=== PATIENT | male | born 1930 | race Caucasian/White ===

== ENCOUNTER 2017-04-17 19:42 | Emergency (ER) | payer MEDICARE, OTHER ==
[2017-04-17 19:47] VITALS: TEMP 98.8
[2017-04-17] MEDS ORDERED: SODIUM CHLORIDE 0.9% 1,000 ML IV STA ×2 (20:05)
[2017-04-17 20:15] LABS: Basophils # (A) 0.1 k/uL (0-0.2); Basophils % (A) 1 %; CH 33.2; Eosinophils # (A) 0.2 k/uL (0-0.7); Eosinophils % (A) 2 %; HCT 41.3 % (39.0-53.0); HDW 1.92; HGB 13.8 gm/dL (13.0-17.5); Luc # (Auto) 0.21; Luc % (Auto) 2; Lymphocytes # (A) 2.1 k/uL (1.0-4.8); Lymphocytes % (A) 21 %; MCH 33.6 pg (25.0-35.0); MCHC 33.3 g/dL (31.0-37.0); MCV 100.9 fL (80.0-100.0); Mean Platelet Volume 7.3; Monocytes # (A) 0.7 k/uL (0-1.0); Monocytes % (A) 7 %; Neutrophils # (A) 6.8 k/uL (1.3-7.7); Neutrophils % (A) 67 %; RDW 13.1 % (11.5-15.5); WBC (Perox) 9.96
[2017-04-17 20:23] LABS: INR 1.2 (<1.2); Partial Thromboplastin Time 25.5 sec (22.0-30.0); Prothrombin Time 11.9 sec (9.0-12.0)
[2017-04-17 20:24] LABS: ALT 26 U/L (21-72); AST 27 U/L (17-59); Alkaline Phosphatase 84 U/L (38-126); Anion Gap 13 mmol/L; Blood Urea Nitrogen 19 mg/dL (9-20); Calcium 9.8 mg/dL (8.4-10.2); Carbon Dioxide 20 mmol/L (22-30); Chloride 98 mmol/L (98-107); Glucose 124 mg/dL (74-99); Magnesium 1.7 mg/dL (1.6-2.3); Non-African American GFR(MDRD) 53 (>60 ml/min/1.73 sqM); Potassium 4.7 mmol/L (3.5-5.1); Sodium 131 mmol/L (137-145); Total Bilirubin 1.2 mg/dL (0.2-1.3)
--- NOTE | 2017-04-17 20:27 | ED ---
General Adult HPI - General Chief complaint: Dizziness Stated complaint: Dizziness Time Seen by Provider: 04/17/17 19:46 Source: patient, family, EMS, RN notes reviewed, old records reviewed Mode of arrival: EMS Limitations: no limitations - History of Present Illness Initial comments: This is an 86-year-old male to the ER for evasive dizziness weakness lightheadedness. Right hand numbness. Patient recently treated discharged from hospital with GI bleed, history of low hemoglobin. Patient stopped taking antibiotics today for colitis. Patient has been feeling that he had a fever on and off for about the past week with chest fever and chills and shaking occasionally. No modifying factors. No pain. No shortness of breath. No abdominal pain. Patient states he doesn't felt a little bit weak today lightheaded and dizzy as he was consented down for dinner. Symptoms at this time are improved. No headache. - Related Data Home Medications Medication Instructions Recorded Confirmed Ascorbic Acid [Vitamin C] 500 mg PO DAILY 04/18/14 04/17/17 Aspirin EC [Ecotrin] 81 mg PO Q48H 04/18/14 04/17/17 Cetirizine HCl [Zyrtec] 10 mg PO DAILY 04/18/14 04/17/17 Cholecalciferol [Vitamin D3] 1,000 unit PO DAILY 04/18/14 04/17/17 Cyanocobalamin [Vitamin B-12] 1,000 mcg PO DAILY 04/18/14 04/17/17 Esomeprazole Magnesium [NexIUM] 40 mg PO DAILY 04/18/14 04/17/17 Mometasone Furoate [Nasonex] 1 spray NS DAILY PRN 04/18/14 04/17/17 Simvastatin [Zocor] 10 mg PO HS 04/18/14 04/17/17 Zinc 50 mg PO DAILY 04/18/14 04/17/17 Vitamin A 8,000 unit PO DAILY 04/17/17 04/17/17 Allergies Allergy/AdvReac Type Severity Reaction Status Date / Time latex Allergy Rash/Hives Verified 04/17/17 19:48 nickel [Nickel] Allergy Rash/Hives Verified 04/17/17 19:48 Penicillins Allergy Rash/Hives Verified 04/17/17 19:48 Review of Systems ROS Statement: Those systems with pertinent positive or pertinent negative responses have been documented in the HPI. ROS Other: All systems not noted in ROS Statement are negative. Past Medical History Past Medical History: Hyperlipidemia, Prostate Disorder History of Any Multi-Drug Resistant Organisms: None Reported Additional Past Surgical History / Comment(s): COLONOSCOPY; POLYP REMOVAL - 2 WEEKS AGO; HEMMORHOID REMOVAL Past Psychological History: No Psychological Hx Reported Smoking Status: Former smoker Past Alcohol Use History: Daily Past Drug Use History: None Reported General Exam Limitations: no limitations General appearance: alert, in no apparent distress Head exam: Present: atraumatic, normocephalic, normal inspection Eye exam: Present: normal appearance, PERRL, EOMI. Absent: scleral icterus, conjunctival injection, periorbital swelling ENT exam: Present: normal exam, mucous membranes moist Neck exam: Present: normal inspection. Absent: tenderness, meningismus, lymphadenopathy Respiratory exam: Present: normal lung sounds bilaterally. Absent: respiratory distress, wheezes, rales, rhonchi, stridor Cardiovascular Exam: Present: regular rate, normal rhythm, normal heart sounds. Absent: systolic murmur, diastolic murmur, rubs, gallop, clicks GI/Abdominal exam: Present: soft, normal bowel sounds. Absent: distended, tenderness, guarding, rebound, rigid Extremities exam: Present: normal inspection, full ROM, normal capillary refill. Absent: tenderness, pedal edema, joint swelling, calf tenderness Back exam: Present: normal inspection Neurological exam: Present: alert, oriented X3, CN II-XII intact Psychiatric exam: Present: normal affect, normal mood Skin exam: Present: warm, dry, intact, normal color. Absent: rash Course Vital Signs 04/17/17 04/17/17 04/17/17 19:44 19:59 20:47 Temperature 98.8 F Pulse Rate 80 82 77 Respiratory 18 16 18 Rate Blood Pressure 135/106 183/94 194/83 O2 Sat by Pulse 95 97 Oximetry 04/17/17 22:11 Temperature Pulse Rate 72 Respiratory 18 Rate Blood Pressure 164/73 O2 Sat by Pulse 97 Oximetry - Reevaluation(s) Reevaluation #1: 04/17/17 22:21 Patient has had prior ER visits for blood pressure control similar to this issue now with similar symptoms of the symptoms patient is experiencing at this point. Reevaluation #2: 04/17/17 22:21 Patient has adequate blood pressure control this time EKG Findings - EKG Comments: EKG Findings:: EKG shows sinus rhythm rate of 80, pO2 56, QRS 90, QTc 447 Medical Decision Making - Medical Decision Making 78 male the ER for evaluation of dizziness, elevated blood pressure. Patient states he does not feel well. Patient did have similar episode 3 years ago follow here high blood pressure. Patient is doctors with a blood pressure medication and found to have high blood pressure here today in the ER. Otherwise patient feels normal, is improved with blood pressure control can be discharged - Lab Data Result diagrams: 04/17/17 19:50 04/17/17 19:50 Lab Results 04/17/17 04/17/17 04/17/17 Range/Units 19:50 19:50 19:50 WBC 10.0 (3.8-10.6) k/uL RBC 4.10 L (4.30-5.90) m/uL Hgb 13.8 (13.0-17.5) gm/dL Hct 41.3 (39.0-53.0) % MCV 100.9 H (80.0-100.0) fL MCH 33.6 (25.0-35.0) pg MCHC 33.3 (31.0-37.0) g/dL RDW 13.1 (11.5-15.5) % Plt Count 297 (150-450) k/uL Neutrophils % 67 % Lymphocytes % 21 % Monocytes % 7 % Eosinophils % 2 % Basophils % 1 % Neutrophils # 6.8 (1.3-7.7) k/uL Lymphocytes # 2.1 (1.0-4.8) k/uL Monocytes # 0.7 (0-1.0) k/uL Eosinophils # 0.2 (0-0.7) k/uL Basophils # 0.1 (0-0.2) k/uL PT (9.0-12.0) sec INR (<1.2) APTT (22.0-30.0) sec Sodium 131 L (137-145) mmol/L Potassium 4.7 (3.5-5.1) mmol/L Chloride 98 (98-107) mmol/L Carbon Dioxide 20 L (22-30) mmol/L Anion Gap 13 mmol/L BUN 19 (9-20) mg/dL Creatinine 1.28 H (0.66-1.25) mg/dL Est GFR (MDRD) Af Amer >60 (>60 ml/min/1.73 sqM) Est GFR (MDRD) Non-Af 53 (>60 ml/min/1.73 sqM) Glucose 124 H (74-99) mg/dL Plasma Lactic Acid Frantz (0.7-2.0) mmol/L Calcium 9.8 (8.4-10.2) mg/dL Phosphorus 4.0 (2.5-4.5) mg/dL Magnesium 1.7 (1.6-2.3) mg/dL Total Bilirubin 1.2 (0.2-1.3) mg/dL AST 27 (17-59) U/L ALT 26 (21-72) U/L Alkaline Phosphatase 84 (38-126) U/L Total Creatine Kinase 120 (55-170) U/L CK-MB (CK-2) 1.8 (0.0-2.4) ng/mL CK-MB (CK-2) Rel Index 1.5 Troponin I <0.012 (0.000-0.034) ng/mL Total Protein 8.0 (6.3-8.2) g/dL Albumin 4.4 (3.5-5.0) g/dL Urine Color Urine Appearance (Clear) Urine pH (5.0-8.0) Ur Specific [place] (1.001-1.035) Urine Protein (Negative) Urine Glucose (UA) (Negative) Urine Ketones (Negative) Urine Blood (Negative) Urine Nitrite (Negative) Urine Bilirubin (Negative) Urine Urobilinogen (<2.0) mg/dL Ur Leukocyte Esterase (Negative) Influenza Type A RNA (Not Detectd) Influenza Type B (PCR) (Not Detectd) 04/17/17 04/17/17 04/17/17 Range/Units 19:50 20:12 20:12 WBC (3.8-10.6) k/uL RBC (4.30-5.90) m/uL Hgb (13.0-17.5) gm/dL Hct (39.0-53.0) % MCV (80.0-100.0) fL MCH (25.0-35.0) pg MCHC (31.0-37.0) g/dL RDW (11.5-15.5) % Plt Count (150-450) k/uL Neutrophils % % Lymphocytes % % Monocytes % % Eosinophils % % Basophils % % Neutrophils # (1.3-7.7) k/uL Lymphocytes # (1.0-4.8) k/uL Monocytes # (0-1.0) k/uL Eosinophils # (0-0.7) k/uL Basophils # (0-0.2) k/uL PT 11.9 (9.0-12.0) sec INR 1.2 H (<1.2) APTT 25.5 (22.0-30.0) sec Sodium (137-145) mmol/L Potassium (3.5-5.1) mmol/L Chloride (98-107) mmol/L Carbon Dioxide (22-30) mmol/L Anion Gap mmol/L BUN (9-20) mg/dL Creatinine (0.66-1.25) mg/dL Est GFR (MDRD) Af Amer (>60 ml/min/1.73 sqM) Est GFR (MDRD) Non-Af (>60 ml/min/1.73 sqM) Glucose (74-99) mg/dL Plasma Lactic Acid Frantz 2.1 H* (0.7-2.0) mmol/L Calcium (8.4-10.2) mg/dL Phosphorus (2.5-4.5) mg/dL Magnesium (1.6-2.3) mg/dL Total Bilirubin (0.2-1.3) mg/dL AST (17-59) U/L ALT (21-72) U/L Alkaline Phosphatase (38-126) U/L Total Creatine Kinase (55-170) U/L CK-MB (CK-2) (0.0-2.4) ng/mL CK-MB (CK-2) Rel Index Troponin I (0.000-0.034) ng/mL Total Protein (6.3-8.2) g/dL Albumin (3.5-5.0) g/dL Urine Color Urine Appearance (Clear) Urine pH (5.0-8.0) Ur Specific [place] (1.001-1.035) Urine Protein (Negative) Urine Glucose (UA) (Negative) Urine Ketones (Negative) Urine Blood (Negative) Urine Nitrite (Negative) Urine Bilirubin (Negative) Urine Urobilinogen (<2.0) mg/dL Ur Leukocyte Esterase (Negative) Influenza Type A RNA Not Detected (Not Detectd) Influenza Type B (PCR) Not Detected (Not Detectd) 04/17/17 Range/Units 20:36 WBC (3.8-10.6) k/uL RBC (4.30-5.90) m/uL Hgb (13.0-17.5) gm/dL Hct (39.0-53.0) % MCV (80.0-100.0) fL MCH (25.0-35.0) pg MCHC (31.0-37.0) g/dL RDW (11.5-15.5) % Plt Count (150-450) k/uL Neutrophils % % Lymphocytes % % Monocytes % % Eosinophils % % Basophils % % Neutrophils # (1.3-7.7) k/uL Lymphocytes # (1.0-4.8) k/uL Monocytes # (0-1.0) k/uL Eosinophils # (0-0.7) k/uL Basophils # (0-0.2) k/uL PT (9.0-12.0) sec INR (<1.2) APTT (22.0-30.0) sec Sodium (137-145) mmol/L Potassium (3.5-5.1) mmol/L Chloride (98-107) mmol/L Carbon Dioxide (22-30) mmol/L Anion Gap mmol/L BUN (9-20) mg/dL Creatinine (0.66-1.25) mg/dL Est GFR (MDRD) Af Amer (>60 ml/min/1.73 sqM) Est GFR (MDRD) Non-Af (>60 ml/min/1.73 sqM) Glucose (74-99) mg/dL Plasma Lactic Acid Frantz (0.7-2.0) mmol/L Calcium (8.4-10.2) mg/dL Phosphorus (2.5-4.5) mg/dL Magnesium (1.6-2.3) mg/dL Total Bilirubin (0.2-1.3) mg/dL AST (17-59) U/L ALT (21-72) U/L Alkaline Phosphatase (38-126) U/L Total Creatine Kinase (55-170) U/L CK-MB (CK-2) (0.0-2.4) ng/mL CK-MB (CK-2) Rel Index Troponin I (0.000-0.034) ng/mL Total Protein (6.3-8.2) g/dL Albumin (3.5-5.0) g/dL Urine Color Light Yellow Urine Appearance Clear (Clear) Urine pH 6.5 (5.0-8.0) Ur Specific [place] 1.004 (1.001-1.035) Urine Protein Negative (Negative) Urine Glucose (UA) Negative (Negative) Urine Ketones Negative (Negative) Urine Blood Negative (Negative) Urine Nitrite Negative (Negative) Urine Bilirubin Negative (Negative) Urine Urobilinogen <2.0 (<2.0) mg/dL Ur Leukocyte Esterase Negative (Negative) Influenza Type A RNA (Not Detectd) Influenza Type B (PCR) (Not Detectd) - Radiology Data Radiology results: report reviewed (CT brain, CT abdomen and pelvis negative for acute disease), image reviewed Disposition Clinical Impression: Hypertensive urgency, Hypertension Disposition: HOME SELF-CARE Condition: Good Instructions: Hypertension (ED) Referrals: Cristo Montoya MD [Primary Care Provider] - 1-2 days
[2017-04-17 20:34] LABS: Creatine Kinase 120 U/L (55-170)
[2017-04-17 20:46] LABS: Appearance,Urine Clear (Clear); Bilirubin,Urine Negative (Negative); Glucose,Urine (UA) Negative (Negative); Ketones,Urine Negative (Negative); Leukocyte Esterase,Urine Negative (Negative); Nitrite,Urine Negative (Negative); PH, Urine 6.5 (5.0-8.0); Protein,Urine Negative (Negative); Specific Gravity,Urine 1.004 (1.001-1.035); UA Billing (MACRO vs. MICRO) CHEM; Urobilinogen,Urine <2.0 mg/dL (<2.0)
[2017-04-17 20:47] LABS: Creatine Kinase MB 1.8 ng/mL (0.0-2.4); Troponin I <0.012 ng/mL (0.000-0.034)
--- NOTE | 2017-04-17 20:48 | CT ---
EXAMINATION TYPE: CT brain wo con DATE OF EXAM: 04/17/2017 COMPARISON: NONE HISTORY: Generalized weakness CT DLP: 1064.1 mGycm Automated exposure control for dose reduction was used. FINDINGS: There is cerebral cortical atrophy. There is mild patchy hypodensity in the periventricular white mat ter. There is no mass effect nor midline shift. There is no sign of intracranial hemorrhage. The calv arium is intact. There is some mucosal thickening in the ethmoid and frontal sinuses. IMPRESSION: SINUSITIS. CEREBRAL ATROPHY AND MILD CHRONIC SMALL VESSEL ISCHEMIA. NO ACUTE INTRACRANIAL ABNORMALITY .
[2017-04-17] MEDS ORDERED: RX INFO: IV CONTRAST WAS GIVEN 1 EACH MISC MISCELLANE PRN (21:08)
--- NOTE | 2017-04-17 22:00 | CT ---
EXAMINATION TYPE: CT abdomen pelvis w con DATE OF EXAM: 04/17/2017 COMPARISON: NONE HISTORY: Excess gas and abdominal discomfort. CT DLP: 645.5 mGycm Automated exposure control for dose reduction was used. TECHNIQUE: Helical acquisition of images was performed from the lung bases through the pelvis. CONTRAST: Performed without Oral Contrast and with IV Contrast, patient injected with 80 mL of Visipaque 320. FINDINGS: Lung bases are clear of consolidation. There is no pleural effusion. There is no pericardial effusion . Liver spleen pancreas appear normal. Bile ducts are not dilated. Gallbladder is contracted. There is no adrenal mass. Kidneys show satisfactory contrast opacification. There is no hydronephrosi s. There is a 3 cm cyst on the posterior right kidney. There is no retroperitoneal adenopathy. There is no ascites. Bladder distends smoothly. Prostate is enlarged with calcification. Appendix is not seen. There is no sign of appendicitis. I see no intestinal wall thickening. There is no sign of a bowel obstruction. There are some spondylotic changes in the lumbar spine. IMPRESSION: ATHEROSCLEROTIC VASCULAR DISEASE. RIGHT RENAL CORTICAL CYST. NO SIGN OF ACUTE ABDOMEN AND PELVIS.
[2017-04-17] MEDS ORDERED: LABETALOL 5 MG/ML VIAL MDV IVP STA (22:04)
[2017-04-17 22:24] VITALS: BP 137/64; PULSE 69; RESP 20
== END 2017-04-17 22:35 | disposition home or self-care (01) ==
LOC: EC 19:42
DX: I16.0 Hypertensive urgency (principal); E78.5 Hyperlipidemia, unspecified; Z87.891 Personal history of nicotine dependence; Z88.0 Allergy status to penicillin; Z91.040 Latex allergy status; Z91.048 Other nonmedicinal substance allergy status; Z79.82 Long term (current) use of aspirin; Z79.899 Other long term (current) drug therapy
CPT/HCPCS: 36415; 93005; 80053; 82550; 82553; 83605; 83735; 84100; 84484; 85025; 85610; 85730; 81003; 87086; 87502; 70450; 74177; 99285; 96374; 96361 ×2; Q9967

== ENCOUNTER → 2017-05-03 | Outpatient (CLI) | payer MEDICARE, OTHER ==
--- NOTE | 2017-05-03 19:33 | US ---
EXAMINATION TYPE: US carotid duplex BILAT DATE OF EXAM: 05/03/2017 COMPARISON: NONE CLINICAL HISTORY: 86-year-old male G45.9 Transient cerebral ischemic attack, unspecified. Dizziness, TIA TECHNIQUE: Carotid duplex ultrasound examination. Indirect Doppler criteria is utilized. FINDINGS: Mild atherosclerotic change at the bifurcations. EXAM MEASUREMENTS: RIGHT: Peak Systolic Velocity (PSV) cm/sec ----- Right CCA: 71.2 ----- Right ICA: 67.9 ----- Right ECA: 80.6 ICA/CCA ratio: 1.0 RIGHT: End Diastole cm/sec ----- Right CCA: 15.4 ----- Right ICA: 18.7 ----- Right ECA: 14.2 LEFT: Peak Systolic Velocity (PSV) cm/sec ----- Left CCA: 64.4 ----- Left ICA: 58.2 ----- Left ECA: 103.5 ICA/CCA ratio: 0.9 LEFT: End Diastole cm/sec ----- Left CCA: 14.5 ----- Left ICA: 14.7 ----- Left ECA: 15.1 VERTEBRALS (direction of flow): Right Vertebral: Antegrade Left Vertebral: Antegrade Rhythm: Normal IMPRESSION: No hemodynamically significant stenosis appreciated in either internal carotid artery. Criteria for Assigning % of Stenosis / Diameter reduction (Estimation based on the indirect measurements of the internal carotid artery velocities (ICA PSV). 1. Normal (no stenosis)=ICA PSV < 125 cm/s: ratio < 2.0: ICA EDV<40 cm/s. 2. Less than 50% stenosis=ICA PSV < 125 cm/s: ratio < 2.0: ICA EDV<40 cm/s. 3. 50 to 69% stenosis=ICA PSV of 125 to 230 cm/s: ration 2.0 ? 4.0: ICA EDV 40-100 cm/s. 4. Greater than 70% stenosis to near occlusion= ICA PSV > 230 cm/s: ratio > 4.0: ICA EDV > 100 cm/s. 5. Near occlusion= ICA PSV velocities may be low or undetectable: variable ratio and ICA EDV. 6. Total occlusion=unable to detect flow.
== END | disposition home or self-care (01) ==
LOC: RADUSWWP 15:06
PROVIDERS: ATTEND Internal Medicine
DX: G45.9 Transient cerebral ischemic attack, unspecified (principal)
CPT/HCPCS: 93880

== ENCOUNTER 2017-09-20 09:49 | Inpatient (IN) | payer MEDICARE, OTHER ==
[2017-09-20] MEDS ORDERED: SODIUM CHLORIDE 0.9% 500 ML IV STA (11:14)
[2017-09-20] MEDS ORDERED: SODIUM CHLORIDE 0.9% 1,000 ML IV STA (11:14)
[2017-09-20 12:01] LABS: Appearance,Urine Clear (Clear); Bilirubin,Urine Negative (Negative); Blood,Urine Negative (Negative); Color,Urine Yellow; Glucose,Urine (UA) Negative (Negative); Ketones,Urine Negative (Negative); Leukocyte Esterase,Urine Negative (Negative); Nitrite,Urine Negative (Negative); PH, Urine 6.5 (5.0-8.0); Protein,Urine Negative (Negative); Specific Gravity,Urine 1.007 (1.001-1.035); Urobilinogen,Urine <2.0 mg/dL (<2.0)
--- NOTE | 2017-09-20 12:14 | ED ---
General Adult HPI - General Chief complaint: Dizziness Stated complaint: Light headed Time Seen by Provider: 09/20/17 10:27 Source: patient, RN notes reviewed, old records reviewed Mode of arrival: wheelchair Limitations: physical limitation - History of Present Illness Initial comments: This is an 86-year-old male to the ER for evaluation. Patient was essay for evaluation regarding dizziness weakness not feeling himself. Patient does have significant history of heart disease. States his blood pressure been running low and diverticulitis blood pressure medication as of late. Patient states his last Wednesday, since Wednesday has been having continued symptoms. Patient states he is not getting any better. He denies any chest pain he has occasional shortness of breath occasional episodes of diaphoresis and sweating. No nausea vomiting or diarrhea no fevers. Patient states that eating and tolerating diet - Related Data Home Medications Medication Instructions Recorded Confirmed Ascorbic Acid [Vitamin C] 500 mg PO DAILY 04/18/14 09/20/17 Aspirin EC [Ecotrin] 81 mg PO DAILY 04/18/14 09/20/17 Cetirizine HCl [Zyrtec] 10 mg PO DAILY 04/18/14 09/20/17 Cholecalciferol [Vitamin D3] 1,000 unit PO DAILY 04/18/14 09/20/17 Cyanocobalamin [Vitamin B-12] 1,000 mcg PO DAILY 04/18/14 09/20/17 Esomeprazole Magnesium [NexIUM] 40 mg PO DAILY 04/18/14 09/20/17 Mometasone Furoate [Nasonex] 1 spray NS DAILY PRN 04/18/14 09/20/17 Zinc 50 mg PO DAILY 04/18/14 09/20/17 Vitamin A 8,000 unit PO DAILY 04/17/17 09/20/17 Tamsulosin HCl [Flomax] 0.4 mg PO HS 09/20/17 09/20/17 Allergies Allergy/AdvReac Type Severity Reaction Status Date / Time latex Allergy Rash/Hives Verified 09/20/17 10:47 nickel [Nickel] Allergy Rash/Hives Verified 09/20/17 10:47 Penicillins Allergy Rash/Hives Verified 09/20/17 10:47 Review of Systems ROS Statement: Those systems with pertinent positive or pertinent negative responses have been documented in the HPI. ROS Other: All systems not noted in ROS Statement are negative. Past Medical History Past Medical History: Hyperlipidemia, Prostate Disorder History of Any Multi-Drug Resistant Organisms: None Reported Additional Past Surgical History / Comment(s): COLONOSCOPY; POLYP REMOVAL - 2 WEEKS AGO; HEMMORHOID REMOVAL Past Psychological History: No Psychological Hx Reported Smoking Status: Former smoker Past Alcohol Use History: Daily Past Drug Use History: None Reported General Exam Limitations: physical limitation General appearance: alert, in no apparent distress Head exam: Present: atraumatic, normocephalic, normal inspection Eye exam: Present: normal appearance, PERRL, EOMI. Absent: scleral icterus, conjunctival injection, periorbital swelling ENT exam: Present: normal exam, mucous membranes moist Neck exam: Present: normal inspection. Absent: tenderness, meningismus, lymphadenopathy Respiratory exam: Present: normal lung sounds bilaterally. Absent: respiratory distress, wheezes, rales, rhonchi, stridor Cardiovascular Exam: Present: regular rate, normal rhythm, normal heart sounds. Absent: systolic murmur, diastolic murmur, rubs, gallop, clicks GI/Abdominal exam: Present: soft, normal bowel sounds. Absent: distended, tenderness, guarding, rebound, rigid Extremities exam: Present: normal inspection, full ROM, normal capillary refill. Absent: tenderness, pedal edema, joint swelling, calf tenderness Back exam: Present: normal inspection Neurological exam: Present: alert, oriented X3, CN II-XII intact Psychiatric exam: Present: normal affect, normal mood Skin exam: Present: warm, dry, intact, normal color. Absent: rash Course Vital Signs 09/20/17 09/20/17 09/20/17 10:14 12:51 13:15 Temperature 97.3 F L Pulse Rate 91 60 60 Respiratory 18 18 Rate Blood Pressure 147/81 188/85 175/77 O2 Sat by Pulse 92 L 97 98 Oximetry - Reevaluation(s) Reevaluation #1: 09/20/17 14:25 patient still concerned re dizziness and his heart EKG Findings - EKG Comments: EKG Findings:: EKG shows sinus rhythm rate of 63, pO2 34, QRS 132, QTc 450 Medical Decision Making - Medical Decision Making 78 male concern for evaluation regarding heart, mild dizziness with nausea, chest pain occasional, neck pain. Patient concern that multiple blood pressure medications of and changes of recent is not feeling well. Patient be admitted for reevaluation by cardiology - Lab Data Result diagrams: 09/20/17 12:09 09/20/17 12:09 Lab Results 09/20/17 09/20/17 09/20/17 Range/Units 11:51 12:09 12:09 WBC 10.8 H (3.8-10.6) k/uL RBC 4.50 (4.30-5.90) m/uL Hgb 14.5 (13.0-17.5) gm/dL Hct 43.0 (39.0-53.0) % MCV 95.6 (80.0-100.0) fL MCH 32.3 (25.0-35.0) pg MCHC 33.7 (31.0-37.0) g/dL RDW 12.1 (11.5-15.5) % Plt Count 411 (150-450) k/uL Neutrophils % 78 % Lymphocytes % 13 % Monocytes % 7 % Eosinophils % 1 % Basophils % 0 % Neutrophils # 8.4 H (1.3-7.7) k/uL Lymphocytes # 1.4 (1.0-4.8) k/uL Monocytes # 0.8 (0-1.0) k/uL Eosinophils # 0.1 (0-0.7) k/uL Basophils # 0.1 (0-0.2) k/uL PT (9.0-12.0) sec INR (<1.2) APTT (22.0-30.0) sec Sodium (137-145) mmol/L Potassium (3.5-5.1) mmol/L Chloride (98-107) mmol/L Carbon Dioxide (22-30) mmol/L Anion Gap mmol/L BUN (9-20) mg/dL Creatinine (0.66-1.25) mg/dL Est GFR (CKD-EPI)AfAm (>60 ml/min/1.73 sqM) Est GFR (CKD-EPI)NonAf (>60 ml/min/1.73 sqM) Glucose (74-99) mg/dL Calcium (8.4-10.2) mg/dL Phosphorus (2.5-4.5) mg/dL Magnesium (1.6-2.3) mg/dL Total Bilirubin (0.2-1.3) mg/dL AST (17-59) U/L ALT (21-72) U/L Alkaline Phosphatase (38-126) U/L Total Creatine Kinase 65 (55-170) U/L CK-MB (CK-2) 1.2 (0.0-2.4) ng/mL CK-MB (CK-2) Rel Index 1.8 Troponin I <0.012 (0.000-0.034) ng/mL Total Protein (6.3-8.2) g/dL Albumin (3.5-5.0) g/dL TSH (0.465-4.680) mIU/L Urine Color Yellow Urine Appearance Clear (Clear) Urine pH 6.5 (5.0-8.0) Ur Specific [place] 1.007 (1.001-1.035) Urine Protein Negative (Negative) Urine Glucose (UA) Negative (Negative) Urine Ketones Negative (Negative) Urine Blood Negative (Negative) Urine Nitrite Negative (Negative) Urine Bilirubin Negative (Negative) Urine Urobilinogen <2.0 (<2.0) mg/dL Ur Leukocyte Esterase Negative (Negative) 09/20/17 09/20/17 Range/Units 12:09 12:09 WBC (3.8-10.6) k/uL RBC (4.30-5.90) m/uL Hgb (13.0-17.5) gm/dL Hct (39.0-53.0) % MCV (80.0-100.0) fL MCH (25.0-35.0) pg MCHC (31.0-37.0) g/dL RDW (11.5-15.5) % Plt Count (150-450) k/uL Neutrophils % % Lymphocytes % % Monocytes % % Eosinophils % % Basophils % % Neutrophils # (1.3-7.7) k/uL Lymphocytes # (1.0-4.8) k/uL Monocytes # (0-1.0) k/uL Eosinophils # (0-0.7) k/uL Basophils # (0-0.2) k/uL PT 10.7 (9.0-12.0) sec INR 1.1 (<1.2) APTT 24.1 (22.0-30.0) sec Sodium 131 L (137-145) mmol/L Potassium 5.3 H (3.5-5.1) mmol/L Chloride 94 L (98-107) mmol/L Carbon Dioxide 23 (22-30) mmol/L Anion Gap 14 mmol/L BUN 23 H (9-20) mg/dL Creatinine 1.45 H (0.66-1.25) mg/dL Est GFR (CKD-EPI)AfAm 49 (>60 ml/min/1.73 sqM) Est GFR (CKD-EPI)NonAf 43 (>60 ml/min/1.73 sqM) Glucose 83 (74-99) mg/dL Calcium 10.4 H (8.4-10.2) mg/dL Phosphorus 3.9 (2.5-4.5) mg/dL Magnesium 2.1 (1.6-2.3) mg/dL Total Bilirubin 1.9 H (0.2-1.3) mg/dL AST 23 (17-59) U/L ALT 25 (21-72) U/L Alkaline Phosphatase 100 (38-126) U/L Total Creatine Kinase (55-170) U/L CK-MB (CK-2) (0.0-2.4) ng/mL CK-MB (CK-2) Rel Index Troponin I (0.000-0.034) ng/mL Total Protein 8.3 H (6.3-8.2) g/dL Albumin 4.6 (3.5-5.0) g/dL TSH 1.950 (0.465-4.680) mIU/L Urine Color Urine Appearance (Clear) Urine pH (5.0-8.0) Ur Specific [place] (1.001-1.035) Urine Protein (Negative) Urine Glucose (UA) (Negative) Urine Ketones (Negative) Urine Blood (Negative) Urine Nitrite (Negative) Urine Bilirubin (Negative) Urine Urobilinogen (<2.0) mg/dL Ur Leukocyte Esterase (Negative) - Radiology Data Radiology results: report reviewed (Chest x-rays negative), image reviewed Disposition Clinical Impression: Weakness, Chest pain, Hypertension, Anxiety Disposition: ADMITTED IP TO THIS [facility] Condition: Fair Is patient prescribed a controlled substance at discharge?: No If prescribed controlled substance>3 days was MAPS reviewed?: No When asked, does pt state using other controlled substances?: No Referrals: Cristo Montoya MD [Primary Care Provider] - 1-2 days
--- NOTE | 2017-09-20 12:24 | XR ---
EXAMINATION TYPE: XR chest 2V DATE OF EXAM: 09/20/2017 COMPARISON: Prior chest x-ray dated 04/18/2014 HISTORY: Weakness and dizziness, history of asthma TECHNIQUE: Frontal and lateral views of the chest are obtained. FINDINGS: There is no focal air space opacity, pleural effusion, or pneumothorax seen. The cardiac silhouette size is within normal limits. Postop change noted to the right shoulder. The osseous stru ctures are intact. IMPRESSION: No acute cardiopulmonary process. There are overlying cardiac leads.
[2017-09-20 12:35] LABS: Basophils # (A) 0.1 k/uL (0-0.2); Basophils % (A) 0 %; Eosinophils # (A) 0.1 k/uL (0-0.7); Eosinophils % (A) 1 %; HGB 14.5 gm/dL (13.0-17.5); Lymphocytes # (A) 1.4 k/uL (1.0-4.8); Lymphocytes % (A) 13 %; MCH 32.3 pg (25.0-35.0); MCHC 33.7 g/dL (31.0-37.0); MCV 95.6 fL (80.0-100.0); Mean Platelet Volume 6.8; Monocytes # (A) 0.8 k/uL (0-1.0); Monocytes % (A) 7 %; Neutrophils # (A) 8.4 k/uL (1.3-7.7); Neutrophils % (A) 78 %; Platelet Count 411 k/uL (150-450); RDW 12.1 % (11.5-15.5); WBC 10.8 k/uL (3.8-10.6)
[2017-09-20 12:43] LABS: Albumin 4.6 g/dL (3.5-5.0); Calcium 10.4 mg/dL (8.4-10.2); Creatine Kinase 65 U/L (55-170); Magnesium 2.1 mg/dL (1.6-2.3); Phosphorus 3.9 mg/dL (2.5-4.5); Potassium 5.3 mmol/L (3.5-5.1); Total Bilirubin 1.9 mg/dL (0.2-1.3); Total Protein 8.3 g/dL (6.3-8.2)
[2017-09-20 12:48] LABS: INR 1.1 (<1.2); Partial Thromboplastin Time 24.1 sec (22.0-30.0); Prothrombin Time 10.7 sec (9.0-12.0)
[2017-09-20 12:55] LABS: Creatine Kinase MB 1.2 ng/mL (0.0-2.4); Troponin I <0.012 ng/mL (0.000-0.034)
[2017-09-20] MEDS ORDERED: ASPIRIN 81 MG PO STA (14:24)
[2017-09-20] MEDS ORDERED: NITROGLYCERIN SL TABS 0.4 MG TAB SUBLINGUAL PRN (14:24)
[2017-09-20 19:14] LABS: Creatine Kinase 73 U/L (55-170)
[2017-09-20 19:24] LABS: Creatine Kinase MB 1.3 ng/mL (0.0-2.4); Troponin I <0.012 ng/mL (0.000-0.034)
[2017-09-20] MEDS: TAMSULOSIN 0.4 MG CAP.ER.24H PO SCH (20:58)
[2017-09-20] MEDS ORDERED: METOPROLOL TARTRATE 25 MG TAB PO SCH (21:00)
[2017-09-21 01:06] LABS: Creatine Kinase 71 U/L (55-170)
[2017-09-21 01:18] LABS: Creatine Kinase MB 1.3 ng/mL (0.0-2.4); Troponin I <0.012 ng/mL (0.000-0.034)
[2017-09-21] MEDS: LACTATED RINGERS 1,000 ML IV SCH ×2 (03:45→12:08)
[2017-09-21] MEDS: amLODIPine 2.5 MG TAB PO SCH ×3 (03:45→20:13)
--- NOTE | 2017-09-21 05:39 | HP ---
HISTORY AND PHYSICAL DATE OF ADMISSION: 09/20/2017 PRESENTING COMPLAINT: Dizzy. HISTORY OF PRESENTING COMPLAINT: This is a pleasant 86-year-old patient of Dr. Montoya I saw yesterday on 09/20/2017. Patient's chronic stable medical conditions include asthma, slight dementia, GERD, hyperlipidemia, osteoarthritis, BPH, esophageal strictures. The patient has had dizziness off and on for quite some time, but for the last 2 weeks has been more dizzy to the point that patient fell on the floor Wednesday. Dizziness is worse seems with standing. The patient's blood pressure medications have been adjusted and because his blood pressure was running low actually his blood pressure medications were taken off by his family doctor recently or cut back he states. Because of all these symptoms and concerned about cardiac cause, the patient was admitted to the hospital. Patient denies any chest pain or palpitations, had some bouts of some perspiration. REVIEW OF SYSTEMS: CONSTITUTIONAL: Tired. HEENT: Decreased hearing. RESPIRATORY: None. CARDIOVASCULAR: No chest pain. GASTROINTESTINAL: Heartburn. GENITOURINARY: None. MUSCULOSKELETAL: Arthritic pain in joints. DERMATOLOGICAL: None. HEMATOLOGIC: None. LYMPHATIC: None. PSYCHIATRY: None. NEUROLOGICAL: No focal weakness. No double vision. PAST MEDICAL HISTORY: Asthma, dementia, GERD, hypertension, hyperlipidemia, osteoarthritis, hypertension, hypercholesteremia. Though blood pressure rate is running low. Duodenal ulcer years ago, esophageal stricture that was dilated, skin cancer removed, cervical osteoarthritis. PAST SURGICAL HISTORY: EGD with dilatation, hemorrhoidectomy, bilateral cataract removed, skin cancer removed. SOCIAL HISTORY: . Smoked for 33 years. Stopped in 1980. Drinks a glass of wine and one shot at night. FAMILY HISTORY: Father of a heart attack at age of 76. HOME MEDICATIONS: 1. Zinc 50 mg p.o. daily. 2. Vitamin A 8000 units p.o. daily. 3. Flomax 0.4 mg p.o. at bedtime. 4. Nexium 40 mg p.o. daily. 5. Vitamin B12, 1000 mcg p.o. daily. 6. Vitamin D3, 1000 units p.o. daily. 7. Zyrtec 10 mg p.o. daily. 8. Aspirin 81 mg p.o. daily. 9. Vitamin C 500 mg p.o. daily. ALLERGIES: Allergies to LATEX, NICKEL, PENICILLIN. PHYSICAL EXAMINATION: On examination: VITAL SIGNS: Temperature 97.7, pulse 100, respirations 16, blood pressure 115/63, pulse ox 98% on room air. GENERAL APPEARANCE: Average built, sitting up, tired appearing. EYES: Pupils equal. Conjunctivae normal. HENT: External appearance of nose and ears normal. Oral cavity normal. Decreased hearing. NECK: JVD not raised. Mass not palpable. RESPIRATORY: Effort normal. LUNGS: Fair entry. CARDIOVASCULAR: First and second sounds normal. No edema. ABDOMEN: Soft, nontender. Liver and spleen not palpable. LYMPHATIC: No lymph nodes palpable in neck or axillae. PSYCHIATRY: Alert and oriented x3. Mood and affect normal. NEUROLOGICAL: Pupils equal. Cranial nerves grossly intact. Power and sensation grossly intact. MUSCULOSKELETAL: Evidence of osteoarthritis especially in the hands and knees. INVESTIGATION: White count 10.8, hemoglobin 14.5. Potassium 5.3. BUN 23, creatinine 1.45. Troponin x2 negative. TSH normal. EKG shows right bundle branch block, poor baseline. ASSESSMENT: 1. This is a patient who presented with episodes of dizziness for at least 2 weeks. Blood pressure was running low as an outpatient. Blood pressure medications were scaled back per the family doctor. This well could explain this presentation. 2. Intermittent asthma. 3. Mild neurocognitive disorder. 4. Gastroesophageal reflux disease. 5. Hyperlipidemia. 6. Primary osteoarthritis. 7. Benign prostatic hypertrophy. 8. Esophageal stricture, prior history of dilatation. PLAN: The orthostatics have been ordered. At the same time, patient's BUN and creatinine is up. Do not know how much of a chronic component is there in this renal failure. Will do a renal ultrasound. Hydrate the patient. Repeat electrolytes in the morning. Meanwhile Cardiology is consulted. We will check also orthostatics. MMODL / IJN: [id number] /
[2017-09-21 07:13] LABS: Calcium 9.9 mg/dL (8.4-10.2); Potassium 5.4 mmol/L (3.5-5.1)
[2017-09-21] MEDS ORDERED: ASPIRIN 325 MG TAB PO SCH (09:00)
[2017-09-21 09:31] VITALS: BMI 27.3
[2017-09-21] MEDS ORDERED: SODIUM POLYSTYRENE SULFONATE 15 GM/60 ML BOTTLE PO ONE (09:50)
[2017-09-21] MEDS: ASPIRIN 81 MG PO SCH (10:26)
[2017-09-21] MEDS: PANTOPRAZOLE 40 MG TABLET PO SCH (10:26)
--- NOTE | 2017-09-21 10:58 | ECHOF ---
Referral Reason:dizziness MEASUREMENTS -------- HEIGHT: 170.2 cm WEIGHT: 79.4 kg BP: RVIDd: 3.1 cm (< 3.3) IVSd: 0.8 cm (0.6 - 1.1) LVIDd: 4.4 cm (3.9 - 5.3) LVPWd: 1.0 cm (0.6 - 1.1) IVSs: 1.8 cm LVIDs: 2.0 cm LVPWs: 1.7 cm LAESV Index (A-L): 33.73 ml/m Ao Diam: 3.6 cm (2.0 - 3.7) AV Cusp: 1.8 cm (1.5 - 2.6) LA Diam: 3.8 cm (2.7 - 3.8) MV EXCURSION: 17.007 mm (> 18.000) MV EF SLOPE: 100 mm/s (70 - 150) EPSS: 0.5 cm MV E Max: 0.73 m/s MV DecT: 231 ms MV A Max: 0.94 m/s MV E/A Ratio: 0.77 RAP: 5.00 mmHg RVSP: 25.41 mmHg FINDINGS -------- Sinus rhythm. This was a technically good study. The left ventricular size is normal. There is mild concentric left ventricular hypertrophy. Overa ll left ventricular systolic function is normal with, an EF between 55 - 60 %. The right ventricle is normal in size. The left atrium is normal in size. The right atrium is normal in size. Aortic valve is trileaflet and is mildly thickened. The mitral valve leaflets are mildly thickened. Mild mitral regurgitation is present. Mild tricuspid regurgitation present. The right ventricular systolic pressure, as measured by Doppl er, is 25.41mmHg. Pulmonic valve appears structurally normal. The aortic root size is normal. The pericardium is normal. CONCLUSIONS -------- 1. Sinus rhythm. 2. This was a technically good study. 3. The left ventricular size is normal. 4. There is mild concentric left ventricular hypertrophy. 5. Overall left ventricular systolic function is normal with, an EF between 55 - 60 %. 6. The right ventricle is normal in size. 7. The left atrium is normal in size. 8. The right atrium is normal in size. 9. Aortic valve is trileaflet and is mildly thickened. 10. The mitral valve leaflets are mildly thickened. 11. Mild mitral regurgitation is present. 12. Mild tricuspid regurgitation present. 13. The right ventricular systolic pressure, as measured by Doppler, is 25.41mmHg. 14. Pulmonic valve appears structurally normal. 15. The aortic root size is normal. 16. The pericardium is normal. PHOTOLETTERING MACHINE OPERATOR: Crystal Tello RDCS
--- NOTE | 2017-09-21 11:08 | P.CRDCN ---
History of Present Illness Consult date: 09/21/17 History of present illness: Mr. Forrester is pleasant 86-year-old male past medical history significant for hypertension, dyslipidemia, BPH, gastroesophageal reflux disease , former smoker and daily alcohol use. He denies history of coronary artery disease. We have been asked to see him in consultation for complaints of dizziness. He states he has been feeling increasing dizzy with unsteady gait over the past 2 weeks. Then Wednesday he states he passed out in the morning after waking up and sitting on the edge of the bed. He denies symptoms prior to having this episode Wednesday such as chest pain, shortness of breath, palpitations , nausea, vomiting or diaphoresis. He states he started feeling mildly dizzy after sitting up and then fell back into the bed. He states he was getting up this morning to go to the bathroom and again felt extremely dizzy and had to be assisted back to bed. EKG reveals first degree AV block with right bundle branch block, this is not new when compared with EKG from 2013. Heart rates have been in the 50-60s, telemetry tracings have been unremarkable. Chest xray is negative for an acute cardiopulmonary process. Laboratory data reviewed, WBC 10.8, hgb 14.5, plt 411, sodium on admission 131 this morning 138, potassium on admission 5.3 this morning 5.4, creatinine on admission 1.45 this morning 1.16, magnesium 2.1, cardiac enzymes negative x3, LDL 94, HDL 44, TSH 1.95. Current cardiac medications include aspirin 81 mg daily. Carotid doppler done in April reveals no hemodynamically significant stenosis in either ICA. Review of Systems At the time my exam: CONSTITUTIONAL: Denies fever. Denies chills. EYES: Denies blurred vision. Denies vision changes. Denies eye pain. EARS, NOSE, MOUTH & THROAT: Denies headache. Denies sore throat. Denies ear pain. CARDIOVASCULAR: Denies chest pain. Denies shortness of breath. Denies orthopnea. Denies PND. Denies palpitations. RESPIRATORY: Denies cough. GASTROINTESTINAL: Denies abdominal pain. Denies diarrhea. Denies constipation. Denies nausea. Denies vomiting. MUSCULOSKELETAL: Denies myalgias. INTEGUMENTARY: Denies pruitis. Denies rash. NEUROLOGIC: Denies numbness. Denies tingling. Denies weakness. PSYCHIATRIC: Denies anxiety. Denies depression. ENDOCRINE: Denies fatigue. Denies weight change. Denies polydipsia. Denies polyurina. GENITOURINARY: Denies burning, hematuria or urgency with micturation. HEMATOLOGIC: Denies history of anemia. Denies bleeding. Past Medical History Past Medical History: Asthma, Cancer, Dementia, GERD/Reflux, Hyperlipidemia, Hypertension, Osteoarthritis (OA), Prostate Disorder Additional Past Medical History / Comment(s): HTN and high cholesterol but lately running low B/Ps and has been taken off his blood pressure medication and statin, BPH, asthma as a young man, sinus problems, doudenal ulcer years ago , esophageal stricture and has had dilations, skin cancer removal, cervical arthritis, beginnings of dementia. History of Any Multi-Drug Resistant Organisms: None Reported Additional Past Surgical History / Comment(s): EGD with dilation, colonoscopy, hemorrhoidectomies, bilateral cataract removals with lens implants, skin cancer removal, R shoulder tendon repair after injury. Past Anesthesia/Blood Transfusion Reactions: No Reported Reaction Smoking Status: Former smoker - Past Family History Father Family Medical History: Myocardial Infarction (MO) Additional Family Medical History / Comment(s): Father of a MO at the age of 76yrs. Mother Family Medical History: No Reported History Additional Family Medical History / Comment(s): Mother lived to be 94 yrs old. Medications and Allergies Home Medications Medication Instructions Recorded Confirmed Type Ascorbic Acid [Vitamin C] 500 mg PO DAILY 04/18/14 09/20/17 History Aspirin EC [Ecotrin] 81 mg PO DAILY 04/18/14 09/20/17 History Cetirizine HCl [Zyrtec] 10 mg PO DAILY 04/18/14 09/20/17 History Cholecalciferol [Vitamin D3] 1,000 unit PO DAILY 04/18/14 09/20/17 History Cyanocobalamin [Vitamin B-12] 1,000 mcg PO DAILY 04/18/14 09/20/17 History Esomeprazole Magnesium [NexIUM] 40 mg PO DAILY 04/18/14 09/20/17 History Mometasone Furoate [Nasonex] 1 spray NS DAILY PRN 04/18/14 09/20/17 History Zinc 50 mg PO DAILY 04/18/14 09/20/17 History Vitamin A 8,000 unit PO DAILY 04/17/17 09/20/17 History Tamsulosin HCl [Flomax] 0.4 mg PO HS 09/20/17 09/20/17 History Allergies Allergy/AdvReac Type Severity Reaction Status Date / Time latex Allergy Rash/Hives Verified 09/20/17 10:47 nickel [Nickel] Allergy Rash/Hives Verified 09/20/17 10:47 Penicillins Allergy Rash/Hives Verified 09/20/17 10:47 Physical Exam Vitals: Vital Signs Temp Pulse Pulse Resp BP BP BP 09/21/17 07:15 97.7 F 57 L 18 156/85 09/21/17 04:00 98.1 F 55 L 16 147/74 09/20/17 23:47 59 L 16 09/20/17 23:38 97.7 F 60 16 151/96 09/20/17 20:00 57 L 16 09/20/17 18:10 97.7 F 100 16 115/63 09/20/17 17:03 97.1 F L 78 18 142/81 09/20/17 16:16 68 161/87 09/20/17 14:16 68 195/88 09/20/17 13:15 60 175/77 09/20/17 12:51 60 18 188/85 09/20/17 10:14 97.3 F L 91 18 147/81 Pulse Ox 09/21/17 07:15 97 09/21/17 04:00 98 09/20/17 23:47 09/20/17 23:38 97 09/20/17 20:00 09/20/17 18:10 98 09/20/17 17:03 96 09/20/17 16:16 99 09/20/17 14:16 94 L 09/20/17 13:15 98 09/20/17 12:51 97 09/20/17 10:14 92 L Intake and Output 09/20/17 09/21/17 09/21/17 22:59 06:59 14:59 Intake Total 480 Balance 480 Intake: Oral 480 Other: Voiding Method Toilet Toilet Weight 79.379 kg Blood pressure 156/85 heart rate 57 afebrile maintaining oxygen saturation on room air GENERAL: This is a 86-year-old male in no apparent distress at the time of my examination. HEENT: Head is atraumatic, normocephalic. Pupils are equal, round. Sclerae anicteric. Conjunctivae are clear. Mucous membranes of the mouth are moist. Neck is supple. There is no jugular venous distention. No carotid bruit is heard. LUNGS: Clear to auscultation no wheezes, rales or rhonchi. No chest wall tenderness is noted on palpation or with deep breathing. HEART: Regular rate and rhythm without murmurs, rubs or gallops. S1 and S2 heard. ABDOMEN: Soft, nontender. Bowel sounds are heard. No organomegaly noted. EXTREMITIES: No evidence of peripheral edema and no calf tenderness noted. VASCULAR: Radial and dorsalis pedis pulses palpated, no evidence of clubbing. NEUROLOGIC: Patient is awake, alert and oriented x3. Results 09/20/17 12:09 09/21/17 06:31 Cardiac Enzymes 09/20/17 09/20/17 09/20/17 Range/Units 12:09 12:09 18:08 AST 23 (17-59) U/L CK-MB (CK-2) 1.2 1.3 (0.0-2.4) ng/mL Troponin I <0.012 <0.012 (0.000-0.034) ng/mL 09/21/17 Range/Units 00:19 AST (17-59) U/L CK-MB (CK-2) 1.3 (0.0-2.4) ng/mL Troponin I <0.012 (0.000-0.034) ng/mL Coagulation 09/20/17 Range/Units 12:09 PT 10.7 (9.0-12.0) sec APTT 24.1 (22.0-30.0) sec Lipids 09/21/17 Range/Units 06:31 Triglycerides 65 (<150) mg/dL Cholesterol 151 (<200) mg/dL HDL Cholesterol 44 (40-60) mg/dL CBC 09/20/17 Range/Units 12:09 WBC 10.8 H (3.8-10.6) k/uL RBC 4.50 (4.30-5.90) m/uL Hgb 14.5 (13.0-17.5) gm/dL Hct 43.0 (39.0-53.0) % Plt Count 411 (150-450) k/uL Comprehensive Metabolic Panel 09/20/17 09/21/17 Range/Units 12:09 06:31 Sodium 131 L 138 (137-145) mmol/L Potassium 5.3 H 5.4 H (3.5-5.1) mmol/L Chloride 94 L 101 (98-107) mmol/L Carbon Dioxide 23 24 (22-30) mmol/L BUN 23 H 19 (9-20) mg/dL Creatinine 1.45 H 1.16 (0.66-1.25) mg/dL Glucose 83 95 (74-99) mg/dL Calcium 10.4 H 9.9 (8.4-10.2) mg/dL AST 23 (17-59) U/L ALT 25 (21-72) U/L Alkaline Phosphatase 100 (38-126) U/L Total Protein 8.3 H (6.3-8.2) g/dL Albumin 4.6 (3.5-5.0) g/dL Current Medications Generic Name Dose Route Start Last Admin Trade Name Freq PRN Reason Stop Dose Admin Amlodipine Besylate 2.5 mg 09/21/17 00:30 09/21/17 03:45 Norvasc PO Not Given BID [facility] Aspirin 81 mg 09/21/17 09:00 Aspirin PO DAILY [facility] Lactated Ringer's 1,000 mls @ 100 mls/hr 09/21/17 00:30 09/21/17 03:45 Lactated Ringers IV Not Given .Q10H [facility] Nitroglycerin 0.4 mg 09/20/17 14:24 Nitrostat SUBLINGUAL Q5M PRN Chest Pain Pantoprazole Sodium 40 mg 09/21/17 07:30 Protonix PO AC-BRKFST [facility] Tamsulosin HCl 0.4 mg 09/20/17 21:00 09/20/17 20:58 Flomax PO 0.4 mg HS [facility] Administration Intake and Output 09/20/17 09/21/17 09/21/17 22:59 06:59 14:59 Intake Total 480 Balance 480 Intake: Oral 480 Other: Voiding Method Toilet Toilet Weight 79.379 kg 09/20/17 12:09 09/21/17 06:31 Assessment and Plan Assessment: ASSESSMENT 1. Syncope. An acute coronary event has been ruled out with no EKG evidence of acute ischemia and negative cardiac enzymes. 2. Hyperkalemia, 5.4. 3. Dyslipidemia 4. Hypertension, recently taken off antihypertensives. 5. Daily alcohol intake PLAN Obtain 2-D echocardiogram and Doppler study to assess cardiac structure and function. Check d-dimer. Give Kayexalate 15 g by mouth 1 now. Check orthostatic blood pressure and heart rate. Continue to monitor on telemetry for arrhythmia. Further recommendations to follow. Thank you kindly for this consultation. The above impression and plan of care have been discussed and directed by the signing physician. Toña Turner, nurse practitioner, acting as scribe for signing physician.
[2017-09-21] MEDS: FLUDROCORTISONE 0.1 MG TAB PO SCH (12:08)
[2017-09-21] MEDS: TAMSULOSIN 0.4 MG CAP.ER.24H PO SCH (20:13)
[2017-09-22] MEDS: LACTATED RINGERS 1,000 ML IV SCH (06:00)
[2017-09-22] MEDS: PANTOPRAZOLE 40 MG TABLET PO SCH (07:41)
[2017-09-22 07:56] LABS: Calcium 9.6 mg/dL (8.4-10.2); Potassium 3.9 mmol/L (3.5-5.1)
[2017-09-22] MEDS: FLUDROCORTISONE 0.1 MG TAB PO SCH (08:52)
[2017-09-22] MEDS: ASPIRIN 81 MG PO SCH (08:52)
[2017-09-22] MEDS: amLODIPine 2.5 MG TAB PO SCH ×2 (08:52→20:25)
[2017-09-22] MEDS ORDERED: LACTATED RINGERS 1,000 ML IV SCH (10:00)
[2017-09-22] MEDS: MIDODRINE 5 MG TAB PO SCH ×2 (12:30→20:25)
--- NOTE | 2017-09-22 15:05 | P.PN ---
Subjective Progress Note Date: 09/22/17 Mr. Forrester is pleasant 86-year-old male past medical history significant for hypertension, dyslipidemia, BPH, gastroesophageal reflux disease , former smoker and daily alcohol use. He denies history of coronary artery disease. We have been asked to see him in consultation for complaints of dizziness. He states he has been feeling increasing dizzy with unsteady gait over the past 2 weeks. Then Wednesday he states he passed out in the morning after waking up and sitting on the edge of the bed. He denies symptoms prior to having this episode Wednesday such as chest pain, shortness of breath, palpitations , nausea, vomiting or diaphoresis. He states he started feeling mildly dizzy after sitting up and then fell back into the bed. He states he was getting up this morning to go to the bathroom and again felt extremely dizzy and had to be assisted back to bed. EKG reveals first degree AV block with right bundle branch block, this is not new when compared with EKG from 2013. Heart rates have been in the 50-60s, telemetry tracings have been unremarkable. Chest xray is negative for an acute cardiopulmonary process. Laboratory data reviewed, WBC 10.8, hgb 14.5, plt 411, sodium on admission 131 this morning 138, potassium on admission 5.3 this morning 5.4, creatinine on admission 1.45 this morning 1.16, magnesium 2.1, cardiac enzymes negative x3, LDL 94, HDL 44, TSH 1.95. Current cardiac medications include aspirin 81 mg daily. Carotid doppler done in April reveals no hemodynamically significant stenosis in either ICA. 09/22/2017 Mr. Forrester is seen and examined today in follow-up. Orthostatic vital signs continue to be positive on florinef 0.1 mg. He continues to complain of positional dizziness with complete resolution at rest. Telemetry tracings reveal first degree AVB with a dropped beat that was asymtomatic at the time yesterday around 1400. Repeat potassium after kaexylate 3.9. Echocardiogram and Doppler study performed yesterday reveals preserved left ventricular systolic function with ejection fraction 55-60%. Objective - Vital Signs Vital signs: Vital Signs Temp 97.9 F 09/22/17 11:50 Pulse 67 09/22/17 11:50 Resp 18 09/22/17 11:50 BP 168/81 09/22/17 11:50 Pulse Ox 98 09/22/17 11:50 Intake & Output 09/21/17 09/22/17 09/22/17 18:59 06:59 18:59 Intake Total 480 540 Balance 480 540 Weight 79.379 kg Intake: Oral 480 540 Other: Voiding Method Toilet Toilet Toilet # Voids 1 - Exam GENERAL: Well-appearing, well-nourished and in no acute distress. NECK: Supple without JVD or thyromegaly. LUNGS: Breath sounds clear to auscultation bilaterally. Respiration equal and unlabored. No wheezes, rales or rhonchi. HEART: Regular rate and rhythm without murmurs, rubs or gallops. S1 and S2 heard. EXTREMITIES: Normal range of motion, no edema. No clubbing or cyanosis. Peripheral pulses intact and strong. - Labs CBC & Chem 7: 09/20/17 12:09 09/22/17 06:47 Labs: Abnormal Lab Results - Last 24 Hours (Table) 09/22/17 Range/Units 06:47 Glucose 100 H (74-99) mg/dL Microbiology - Last 24 Hours (Table) 09/20/17 11:51 Urine Culture - Final Urine,Voided Assessment and Plan Assessment: ASSESSMENT 1. Syncope. An acute coronary event has been ruled out with no EKG evidence of acute ischemia and negative cardiac enzymes. 2. Hyperkalemia, 5.4. 3. Dyslipidemia 4. Hypertension, recently taken off antihypertensives. 5. Daily alcohol intake PLAN Increase Florinef to 0.2 mg daily. Add midodrin 2.5 mg 3 times a day before meals. Continue to check orthostatics every shift. Further recommendations to follow. The above impression and plan of care have been discussed and directed by the signing physician. Toña Turner, nurse practitioner, acting as scribe for signing physician.
--- NOTE | 2017-09-22 20:14 | PN ---
PROGRESS NOTE DATE OF SERVICE: 09/21/17. PRESENTING COMPLAINT: Dizzy. INTERVAL HISTORY: This patient was seen by me yesterday on 09/21/17. Could not dictated because the computer system/[employer] was down. The patient presented with episodes of dizziness. The patient has been having low blood pressure readings at home. Blood pressure started to run high. The patient does feel a bit tired. No chest pain, short of breath. No palpitation. REVIEW OF SYSTEMS: Done for consultation, cardiovascular, GI, pulmonary; relevant findings as above. CURRENT MEDICATIONS: Reviewed. EXAMINATION: Temperature 97.7, pulse 57, respiratory 18, blood pressure 156/85, pulse ox 97% room air. GENERAL APPEARANCE: Sitting up, awake. EYES: Pupils equal. Conjunctivae normal. HEENT: External appearance of nose and ears normal. Oral cavity normal. NECK: JVD not raised. Mass not palpable. RESPIRATORY: Effort, lungs are clear. CARDIOVASCULAR: 1st and 2nd sounds normal. No edema. ABDOMEN: Soft, nontender. Liver and spleen not palpable. PSYCHIATRY: Alert and oriented x3. Mood and affect normal. INVESTIGATIONS: 2D echo shows EF of 55-60%. ASSESSMENT: 1. Labile blood pressure as patient actually was hypotensive at home and here the blood pressure has gone pretty high. 2. Intermittent asthma. 3. Mild neurocognitive disorder. 4. Gastroesophageal reflux disease. 5. Hyperlipidemia. 6. Primary osteoarthritis. 7. Benign prostatic hypertrophy. 8. Esophageal stricture with prior history dilatation. 9. Acute renal failure likely prerenal. The patient's creatinine did come down. PLAN: Patient's antihypertensive will be slowly adjusted. Care was discussed with the patient. The patient will probably need at least 2 nights in the hospital so medications can be adjusted. Otherwise, patient is a high risk of falling and hurting himself. MMODL / IJN: [id number] /
--- NOTE | 2017-09-22 20:21 | PN ---
PROGRESS NOTE DATE OF SERVICE: 09/22/17. PRESENTING COMPLAINT: Dizzy. INTERVAL HISTORY: This patient presented with low blood pressure. The blood pressure yesterday morning went up to 180s to 190. Antihypertensives were added. The patient does have orthostatic gap. REVIEW OF SYSTEMS: Done for constitutional, cardiovascular, GI, pulmonary; relevant findings as above. CURRENT MEDICATIONS: Reviewed that include Norvasc 2.5 mg a day, Florinef and midodrine as per Cardiology. PHYSICAL EXAMINATION: Temperature 98.2, pulse 65, respiratory 18, blood pressure anywhere from 160/81 down to 103/56. GENERAL APPEARANCE: Sitting up, awake. EYES: Pupils equal. Conjunctivae normal. HEENT: External nose and ears normal. Oral cavity normal. Decreased hearing. NECK: JVD not raised. Mass not palpable. RESPIRATORY: Effort, lungs are clear. CARDIOVASCULAR: First and second sounds, no edema. ABDOMEN: Soft, nontender. Liver and spleen not palpable. PSYCHIATRY: Alert and oriented x3. Mood and affect normal. INVESTIGATIONS: Potassium 3.9. ASSESSMENT: 1. Labile hypertension with orthostatic, medication being adjusted. 2. Intermittent asthma. 3. Mild neurocognitive disorder. 4. Gastroesophageal reflux disease. 5. Hyperlipidemia. 6. Primary osteoarthritis. 7. Benign prostatic hypertrophy. 8. Esophageal stricture with prior history of dilatation. PLAN: Medications adjusted by Dr. Call from Cardiology. Will keep a close eye. The patient is not safe to go home until his blood pressure is doing better, otherwise, there is risk of fall and injury to himself. Follow. MMODL / IJN: [id number] /
[2017-09-22] MEDS: TAMSULOSIN 0.4 MG CAP.ER.24H PO SCH (20:25)
[2017-09-23] MEDS: PANTOPRAZOLE 40 MG TABLET PO SCH (07:28)
[2017-09-23 07:46] VITALS: RESP 16
[2017-09-23] MEDS: amLODIPine 2.5 MG TAB PO SCH (08:51)
[2017-09-23] MEDS: MIDODRINE 5 MG TAB PO SCH ×2 (08:51→16:38)
[2017-09-23] MEDS: ASPIRIN 81 MG PO SCH (08:52)
[2017-09-23] MEDS ORDERED: FLUDROCORTISONE 0.1 MG TAB PO SCH (09:00)
[2017-09-23 13:04] VITALS: TEMP 97.9
[2017-09-23 13:44] VITALS: BP 129/67; PULSE 71
--- NOTE | 2017-09-23 13:54 | P.PN ---
Subjective Progress Note Date: 09/23/17 Mr. Forrester is pleasant 86-year-old male past medical history significant for hypertension, dyslipidemia, BPH, gastroesophageal reflux disease , former smoker and daily alcohol use. He denies history of coronary artery disease. We have been asked to see him in consultation for complaints of dizziness. He states he has been feeling increasing dizzy with unsteady gait over the past 2 weeks. Then Wednesday he states he passed out in the morning after waking up and sitting on the edge of the bed. He denies symptoms prior to having this episode Wednesday such as chest pain, shortness of breath, palpitations , nausea, vomiting or diaphoresis. He states he started feeling mildly dizzy after sitting up and then fell back into the bed. He states he was getting up this morning to go to the bathroom and again felt extremely dizzy and had to be assisted back to bed. EKG reveals first degree AV block with right bundle branch block, this is not new when compared with EKG from 2013. Heart rates have been in the 50-60s, telemetry tracings have been unremarkable. Chest xray is negative for an acute cardiopulmonary process. Laboratory data reviewed, WBC 10.8, hgb 14.5, plt 411, sodium on admission 131 this morning 138, potassium on admission 5.3 this morning 5.4, creatinine on admission 1.45 this morning 1.16, magnesium 2.1, cardiac enzymes negative x3, LDL 94, HDL 44, TSH 1.95. Current cardiac medications include aspirin 81 mg daily. Carotid doppler done in April reveals no hemodynamically significant stenosis in either ICA. 09/22/2017 Mr. Forrester is seen and examined today in follow-up. Orthostatic vital signs continue to be positive on florinef 0.1 mg. He continues to complain of positional dizziness with complete resolution at rest. Telemetry tracings reveal first degree AVB with a dropped beat that was asymtomatic at the time yesterday around 1400. Repeat potassium after kaexylate 3.9. Echocardiogram and Doppler study performed yesterday reveals preserved left ventricular systolic function with ejection fraction 55-60%. 09/23/2017 Mr. Forrester is up and ambulating in the halls with assistance. He denies symptoms of dizziness. He has been gently hydrated and midodrine was added yesterday. He continued to have orthostatic changes last night. Midodrine was increased early this morning verbally to the nurse prior to increasing his activity level. He seems to be tolerating this dose with decreased symptoms. Blood pressure 109/62 heart rate is 81. Telemetry tracings continue to reveal first degree AVB with intermittent right bundle branch block pattern. Repeat orthostatics this afternoon after increase in midodrine and increased activity have significantly improved. Objective - Vital Signs Vital signs: Vital Signs Temp 97.9 F 09/23/17 11:30 Pulse 81 09/23/17 11:30 Resp 16 09/23/17 11:30 BP 109/62 09/23/17 11:30 Pulse Ox 96 09/23/17 11:30 Intake & Output 09/22/17 09/23/17 09/23/17 18:59 06:59 18:59 Intake Total 540 240 450 Balance 540 240 450 Intake: Oral 540 240 450 Other: Voiding Method Toilet Toilet Toilet - Exam GENERAL: Well-appearing, well-nourished and in no acute distress. NECK: Supple without JVD or thyromegaly. LUNGS: Breath sounds clear to auscultation bilaterally. Respiration equal and unlabored. No wheezes, rales or rhonchi. HEART: Irregular rate and rhythm without murmurs, rubs or gallops. S1 and S2 heard. EXTREMITIES: Normal range of motion, no edema. No clubbing or cyanosis. Peripheral pulses intact and strong. - Labs CBC & Chem 7: 09/20/17 12:09 09/22/17 06:47 Assessment and Plan Assessment: ASSESSMENT 1. Syncope. An acute coronary event has been ruled out with no EKG evidence of acute ischemia and negative cardiac enzymes. 2. Hyperkalemia, 5.4. 3. Dyslipidemia 4. Hypertension, recently taken off antihypertensives. 5. Daily alcohol intake PLAN Increase midodrine to 5 mg TID with meals. Increase activity with assistance. Seems to be tolerating new medications. Continue gloria as ordered. Follow up with Dr. Call in 2-3 weeks. The above impression and plan of care have been discussed and directed by the signing physician. Toña Turner, nurse practitioner, acting as scribe for signing physician.
[2017-09-24] MEDS ORDERED: POLYETHYLENE GLYCOL 3350 17 GM POWD.PACK PO SCH (09:00)
--- NOTE | 2017-09-24 21:59 | DS ---
DISCHARGE SUMMARY OF ADMISSION: September 20, 2017. DATE OF DISCHARGE: September 23, 2017. FINAL DIAGNOSES: 1. Labile hypertension with orthostatic hypotension, rather symptomatic, present on admission. 2. Intermittent asthma. 3. Mild neurocognitive disorder. 4. Gastroesophageal reflux disease. 5. Hyperlipidemia. 6. Primary osteoarthritis. 7. Benign prostatic hypertrophy. 8. Esophageal stricture with prior history of dilatation. HOSPITAL COURSE: This patient was taken off his blood pressure medications, presented with really high blood pressure, not feeling well, unsteady, nearly passing out, found to be also significantly orthostatic. Medications were adjusted including Florinef, midodrine, antihypertensive. Doing much better at the time of discharge. Last recorded blood pressure is 129/67. PHYSICAL EXAMINATION: On exam lungs are clear. Cardiovascular 1st and second sounds normal. 2D echocardiogram showed preserved LV function. CONSULTATION: Dr. Lui Call from Cardiology. DISCHARGE MEDICATIONS: 1. Vitamin C 500 mg p.o. daily. 2. Aspirin 81 mg p.o. daily. 3. Vitamin B12 1000 mcg p.o. daily. 4. Nexium 40 mg p.o. daily. 5. Nasonex nasal spray. 6. Zinc 50 mg p.o. daily. 7. Vitamin A 8000 units p.o. daily. 8. Flomax 0.4 mg q.h.s. 9. Florinef 0.1 mg p.o. b.i.d. 10.Midodrine 5 mg p.o. a.c. t.i.d. 11.Norvasc 5 mg p.o. daily. Follow up with Dr. Cristo Montoya in 3 days. Follow up with Dr. Aryan Call in [address] Montoya. MMCRISTÓBALL / SANAZN: [id number] /
== END 2017-09-23 16:53 | disposition home or self-care (01) | DRG 312 ==
LOC: EC 09:49 → 3OBS 14:24 → OBSVTOIN 09-22 19:13
PROVIDERS: ADMIT Hospitalist; ATTEND Hospitalist
DX: I95.1 Orthostatic hypotension (principal); N17.9 Acute kidney failure, unspecified; E78.00 Pure hypercholesterolemia, unspecified; E78.5 Hyperlipidemia, unspecified; E87.5 Hyperkalemia; F03.90 Unspecified dementia, unspecified severity, without behavioral disturbance, psychotic disturbance, mood disturbance, and anxiety; I10 Essential (primary) hypertension; I44.0 Atrioventricular block, first degree; I45.10 Unspecified right bundle-branch block; J45.20 Mild intermittent asthma, uncomplicated; K21.9 Gastro-esophageal reflux disease without esophagitis; K22.2 Esophageal obstruction; M19.91 Primary osteoarthritis, unspecified site; N40.0 Benign prostatic hyperplasia without lower urinary tract symptoms; Z79.82 Long term (current) use of aspirin; Z82.49 Family history of ischemic heart disease and other diseases of the circulatory system; Z85.828 Personal history of other malignant neoplasm of skin; Z87.11 Personal history of peptic ulcer disease; Z87.891 Personal history of nicotine dependence; Z96.1 Presence of intraocular lens; Z79.899 Other long term (current) drug therapy; Z91.040 Latex allergy status; Z88.0 Allergy status to penicillin; Z91.048 Other nonmedicinal substance allergy status; Z86.010 Personal history of colon polyps
CPT/HCPCS: 36415; 71046; 80048; 80053; 80061; 81003; 82550; 82553; 83735; 84100; 84443; 84484; 85025; 85379; 85610; 85730; 87086; 93005; 93306; 96360; 99285

== ENCOUNTER → 2017-10-14 | Outpatient (CLI) | payer MEDICARE, OTHER ==
[2017-10-15 03:15] LABS: ACTH 12.5 pg/mL (0.00-45.99)
== END | disposition home or self-care (01) ==
LOC: LABWHC1 15:21
PROVIDERS: ATTEND Internal Medicine Endocrinology, Diabetes & Metabolism
DX: E27.40 Unspecified adrenocortical insufficiency (principal)
CPT/HCPCS: 36415; 82024; 82533; 84146

== ENCOUNTER 2017-12-08 21:38 | Emergency (ER) | payer MEDICARE, OTHER ==
[2017-12-08 21:47] VITALS: TEMP 98.3
[2017-12-08] MEDS ORDERED: SODIUM CHLORIDE 0.9% 500 ML IV STA (22:09)
[2017-12-08 22:43] LABS: Basophils % (A) 0 %; Eosinophils # (A) 0.2 k/uL (0-0.7); Eosinophils % (A) 2 %; HCT 41.1 % (39.0-53.0); HGB 13.9 gm/dL (13.0-17.5); Lymphocytes % (A) 24 %; MCH 33.4 pg (25.0-35.0); MCHC 33.9 g/dL (31.0-37.0); MCV 98.4 fL (80.0-100.0); Mean Platelet Volume 6.7; Monocytes # (A) 0.6 k/uL (0-1.0); Monocytes % (A) 8 %; Neutrophils # (A) 5.3 k/uL (1.3-7.7); Neutrophils % (A) 64 %; Platelet Count 308 k/uL (150-450); RBC 4.17 m/uL (4.30-5.90); RDW 12.6 % (11.5-15.5); WBC 8.3 k/uL (3.8-10.6)
[2017-12-08 22:52] LABS: Albumin 4.5 g/dL (3.5-5.0); Calcium 9.5 mg/dL (8.4-10.2); Potassium 4.4 mmol/L (3.5-5.1); Total Protein 7.6 g/dL (6.3-8.2)
[2017-12-08 22:53] LABS: INR 1.1 (<1.2); Partial Thromboplastin Time 24.4 sec (22.0-30.0); Prothrombin Time 10.8 sec (9.0-12.0)
--- NOTE | 2017-12-08 22:56 | XR ---
EXAMINATION TYPE: XR chest 2V DATE OF EXAM: 12/08/2017 COMPARISON: 09/20/2017 HISTORY: Weakness TECHNIQUE: Frontal and lateral views of the chest are obtained. FINDINGS: Heart and mediastinum are normal. Lungs are clear. Diaphragm is normal. Bony thorax is int act. There are chest leads. IMPRESSION: Normal chest. No change
[2017-12-08 23:02] LABS: Creatine Kinase 48 U/L (55-170)
[2017-12-08 23:15] LABS: Creatine Kinase MB 0.6 ng/mL (0.0-2.4); Troponin I <0.012 ng/mL (0.000-0.034)
[2017-12-08] MEDS ORDERED: LABETALOL 5 MG/ML VIAL MDV IVP STA (23:35)
[2017-12-09 00:41] VITALS: RESP 16
[2017-12-09] MEDS ORDERED: LABETALOL 5 MG/ML VIAL MDV IVP STA (00:57)
--- NOTE | 2017-12-09 00:59 | ED ---
Recheck HPI - General Chief Complaint: Recheck/Abnormal Lab/Rx Stated Complaint: Hand Numbness Time Seen by Provider: 12/08/17 21:50 Source: patient Mode of arrival: ambulatory Limitations: no limitations - History of Present Illness Initial Comments: 87-year-old male patient presents to the emergency department today for evaluation of right hand numbness. Patient states that at approximately 2030 this evening started to have numbness to his right thumb, states that the numbness disappeared from the dominant appeared in the right second finger and each subsequent finger after that. Patient states it lasted approximately 5 minutes. States his symptoms resolved after he ran his hand under warm water and took some aspirin. Patient states that he did have some numbness to the left hand a couple of days ago and was told by his contract associate to come to the emergency department if his symptoms returned. Patient does have issues with blood pressure and does take fludrocortisone and midodrine for this. Patient denies any other symptoms with the numbness. Denies any headache, dizziness, weakness, chest pain, shortness of breath, blurred vision, double vision, fever , chills, abdominal pain, nausea, or vomiting. Denies any weakness to his limbs. Denies any numbness or tingling to the lower extremities. - Related Data Home Medications Medication Instructions Recorded Confirmed Ascorbic Acid [Vitamin C] 500 mg PO DAILY 04/18/14 09/20/17 Aspirin EC [Ecotrin Low Dose] 81 mg PO DAILY 04/18/14 12/08/17 Cyanocobalamin [Vitamin B-12] 1,000 mcg PO DAILY 04/18/14 09/20/17 Esomeprazole Magnesium [NexIUM] 40 mg PO DAILY 04/18/14 09/20/17 Mometasone Furoate [Nasonex Nasal 1 spray NS DAILY PRN 04/18/14 09/20/17 [place]] Zinc 50 mg PO DAILY 04/18/14 09/20/17 Vitamin A 8,000 unit PO DAILY 04/17/17 12/08/17 Tamsulosin HCl [Flomax] 0.4 mg PO HS 09/20/17 09/20/17 Fludrocortisone [Florinef] 0.1 mg PO DAILY 12/08/17 12/08/17 Previous Rx's Medication Instructions Recorded Midodrine [ProAmatine] 5 mg PO AC-TID #90 tab 09/23/17 Allergies Allergy/AdvReac Type Severity Reaction Status Date / Time latex Allergy Rash/Hives Verified 09/20/17 10:47 nickel [Nickel] Allergy Rash/Hives Verified 09/20/17 10:47 Penicillins Allergy Rash/Hives Verified 09/20/17 10:47 Review of Systems ROS Statement: Those systems with pertinent positive or pertinent negative responses have been documented in the HPI. ROS Other: All systems not noted in ROS Statement are negative. Past Medical History Past Medical History: Asthma, Cancer, Dementia, GERD/Reflux, Hyperlipidemia, Hypertension, Osteoarthritis (OA), Prostate Disorder Additional Past Medical History / Comment(s): HTN and high cholesterol but lately running low B/Ps and has been taken off his blood pressure medication and statin, BPH, asthma as a young man, sinus problems, doudenal ulcer years ago , esophageal stricture and has had dilations, skin cancer removal, cervical arthritis, beginnings of dementia. History of Any Multi-Drug Resistant Organisms: None Reported Additional Past Surgical History / Comment(s): EGD with dilation, colonoscopy, hemorrhoidectomies, bilateral cataract removals with lens implants, skin cancer removal, R shoulder tendon repair after injury. Past Anesthesia/Blood Transfusion Reactions: No Reported Reaction Past Psychological History: No Psychological Hx Reported Smoking Status: Former smoker - Past Family History Father Family Medical History: Myocardial Infarction ([place]) Additional Family Medical History / Comment(s): Father of a [place] at the age of 76yrs. Mother Family Medical History: No Reported History Additional Family Medical History / Comment(s): Mother lived to be 94 yrs old. General Exam Limitations: no limitations General appearance: alert, in no apparent distress, other (This is a well- developed, well-nourished adult male patient in no acute distress. Vital signs upon presentation are temperature 98.3F, pulse 70, respiration 16, blood pressure 199/73, pulse ox 98% on room air.) Eye exam: Present: normal appearance, PERRL, EOMI. Absent: scleral icterus, conjunctival injection, periorbital swelling ENT exam: Present: normal exam, normal oropharynx, mucous membranes moist Respiratory exam: Present: normal lung sounds bilaterally. Absent: respiratory distress, wheezes, rales, rhonchi, stridor Cardiovascular Exam: Present: regular rate, normal rhythm, normal heart sounds. Absent: systolic murmur, diastolic murmur, rubs, gallop, clicks GI/Abdominal exam: Present: soft, normal bowel sounds. Absent: distended, tenderness, guarding, rebound, rigid Extremities exam: Present: normal inspection, full ROM, normal capillary refill. Absent: tenderness, pedal edema, joint swelling, calf tenderness Neurological exam: Present: alert, oriented X3, CN II-XII intact, other ( Strength in all 4 extremities is 5/5.) Psychiatric exam: Present: normal affect, normal mood Skin exam: Present: warm, dry, intact, normal color. Absent: rash Course Vital Signs 12/08/17 12/08/17 12/09/17 21:43 22:35 00:22 Temperature 98.3 F Pulse Rate 70 76 76 Respiratory 16 18 18 Rate Blood Pressure 199/73 215/107 187/99 O2 Sat by Pulse 98 98 96 Oximetry 12/09/17 12/09/17 12/09/17 00:37 01:10 02:20 Temperature Pulse Rate 67 65 66 Respiratory 16 17 16 Rate Blood Pressure 202/97 201/96 181/85 O2 Sat by Pulse 97 100 100 Oximetry Medical Decision Making - Medical Decision Making 87-year-old male patient presented to the emergency department today for evaluation of numbness and tingling to the right hand. Patient states episode lasted approximately 5 minutes. Physical examination is unremarkable. He is neurologically intact. Labs reviewed and are unremarkable. Chest x-ray showed no acute cardiopulmonary process. EKG is stable from September. Patient did have some elevated blood pressure while here in the department. He was given 2 doses of labetalol. Patient's blood pressure did decrease. Patient does feel comfortable being discharged home tonight to follow-up with his contract associate in the morning. Return parameters were discussed in detail. He verbalizes understanding and agrees with this plan. - Lab Data Result diagrams: 12/08/17 22:30 12/08/17 22:30 Lab Results 12/08/17 12/08/17 12/08/17 Range/Units 22:30 22:30 22:30 WBC 8.3 (3.8-10.6) k/uL RBC 4.17 L (4.30-5.90) m/uL Hgb 13.9 (13.0-17.5) gm/dL Hct 41.1 (39.0-53.0) % MCV 98.4 (80.0-100.0) fL MCH 33.4 (25.0-35.0) pg MCHC 33.9 (31.0-37.0) g/dL RDW 12.6 (11.5-15.5) % Plt Count 308 (150-450) k/uL Neutrophils % 64 % Lymphocytes % 24 % Monocytes % 8 % Eosinophils % 2 % Basophils % 0 % Neutrophils # 5.3 (1.3-7.7) k/uL Lymphocytes # 2.0 (1.0-4.8) k/uL Monocytes # 0.6 (0-1.0) k/uL Eosinophils # 0.2 (0-0.7) k/uL Basophils # 0.0 (0-0.2) k/uL PT (9.0-12.0) sec INR (<1.2) APTT (22.0-30.0) sec Sodium 134 L (137-145) mmol/L Potassium 4.4 (3.5-5.1) mmol/L Chloride 96 L (98-107) mmol/L Carbon Dioxide 26 (22-30) mmol/L Anion Gap 12 mmol/L BUN 18 (9-20) mg/dL Creatinine 1.30 H (0.66-1.25) mg/dL Est GFR (CKD-EPI)AfAm 56 (>60 ml/min/1.73 sqM) Est GFR (CKD-EPI)NonAf 49 (>60 ml/min/1.73 sqM) Glucose 101 H (74-99) mg/dL Calcium 9.5 (8.4-10.2) mg/dL Total Bilirubin 1.0 (0.2-1.3) mg/dL AST 20 (17-59) U/L ALT 26 (21-72) U/L Alkaline Phosphatase 95 (38-126) U/L Total Creatine Kinase 48 L (55-170) U/L CK-MB (CK-2) 0.6 (0.0-2.4) ng/mL CK-MB (CK-2) Rel Index 1.3 Troponin I <0.012 (0.000-0.034) ng/mL Total Protein 7.6 (6.3-8.2) g/dL Albumin 4.5 (3.5-5.0) g/dL 12/08/17 Range/Units 22:30 WBC (3.8-10.6) k/uL RBC (4.30-5.90) m/uL Hgb (13.0-17.5) gm/dL Hct (39.0-53.0) % MCV (80.0-100.0) fL MCH (25.0-35.0) pg MCHC (31.0-37.0) g/dL RDW (11.5-15.5) % Plt Count (150-450) k/uL Neutrophils % % Lymphocytes % % Monocytes % % Eosinophils % % Basophils % % Neutrophils # (1.3-7.7) k/uL Lymphocytes # (1.0-4.8) k/uL Monocytes # (0-1.0) k/uL Eosinophils # (0-0.7) k/uL Basophils # (0-0.2) k/uL PT 10.8 (9.0-12.0) sec INR 1.1 (<1.2) APTT 24.4 (22.0-30.0) sec Sodium (137-145) mmol/L Potassium (3.5-5.1) mmol/L Chloride (98-107) mmol/L Carbon Dioxide (22-30) mmol/L Anion Gap mmol/L BUN (9-20) mg/dL Creatinine (0.66-1.25) mg/dL Est GFR (CKD-EPI)AfAm (>60 ml/min/1.73 sqM) Est GFR (CKD-EPI)NonAf (>60 ml/min/1.73 sqM) Glucose (74-99) mg/dL Calcium (8.4-10.2) mg/dL Total Bilirubin (0.2-1.3) mg/dL AST (17-59) U/L ALT (21-72) U/L Alkaline Phosphatase (38-126) U/L Total Creatine Kinase (55-170) U/L CK-MB (CK-2) (0.0-2.4) ng/mL CK-MB (CK-2) Rel Index Troponin I (0.000-0.034) ng/mL Total Protein (6.3-8.2) g/dL Albumin (3.5-5.0) g/dL - EKG Data -: EKG Interpreted by Me EKG Comments: EKG obtained at 2224 shows wide QRS rhythm with a right bundle branch block. Ventricular rate is 73, QRS duration 132, QT 444, QTC 489. Did review EKG obtained in September, changes appear to be chronic. - Radiology Data Radiology results: report reviewed, image reviewed Two-view x-ray of the chest is obtained. Heart mediastinum are normal. Lungs are clear. Diaphragm is normal. Bony thorax is intact. There are chest leads. Impression by Dr. Brennan shows normal chest with no change. Disposition Clinical Impression: Hand paresthesia, Hypertension Disposition: HOME SELF-CARE Condition: Good Instructions: Paresthesia (ED), Hypertension (ED) Additional Instructions: Recheck blood pressure in the morning. Follow-up with your contract associate for recheck tomorrow. Return here immediately for any new, worsening, or concerning symptoms. Is patient prescribed a controlled substance at d/c from ED?: No Referrals: Cristo Montoya MD [Primary Care Provider] - 1-2 days Time of Disposition: 00:58
[2017-12-09 02:23] VITALS: BP 181/85; PULSE 66
== END 2017-12-09 02:24 | disposition home or self-care (01) ==
LOC: EC 21:38
DX: I10 Essential (primary) hypertension (principal); R20.2 Paresthesia of skin; I45.10 Unspecified right bundle-branch block; R20.0 Anesthesia of skin; J45.909 Unspecified asthma, uncomplicated; K21.9 Gastro-esophageal reflux disease without esophagitis; N40.0 Benign prostatic hyperplasia without lower urinary tract symptoms; M47.812 Spondylosis without myelopathy or radiculopathy, cervical region; Z87.891 Personal history of nicotine dependence; Z79.52 Long term (current) use of systemic steroids; Z79.82 Long term (current) use of aspirin; Z79.899 Other long term (current) drug therapy; Z88.0 Allergy status to penicillin; Z91.040 Latex allergy status; Z91.09 Other allergy status, other than to drugs and biological substances; Z85.828 Personal history of other malignant neoplasm of skin; Z87.19 Personal history of other diseases of the digestive system; Z98.890 Other specified postprocedural states; Z82.49 Family history of ischemic heart disease and other diseases of the circulatory system
CPT/HCPCS: 36415; 71046; 80053; 82550; 82553; 84484; 85025; 85610; 85730; 93005; 96361; 96374; 96376; 99284

== ENCOUNTER → 2018-02-08 | Outpatient (CLI) | payer MEDICARE, OTHER ==
[2018-02-08 15:15] LABS: Potassium 4.7 mmol/L (3.5-5.1)
== END | disposition home or self-care (01) ==
LOC: LABWHC1 14:28
PROVIDERS: ATTEND Internal Medicine Cardiovascular Disease
DX: I44.1 Atrioventricular block, second degree (principal)
CPT/HCPCS: 36415; 80051; 82565; 84443; 84520

== ENCOUNTER → 2018-02-09 | Outpatient (CLI) | payer MEDICARE, OTHER ==
[2018-02-09 13:53] LABS: HCT 40.7 % (39.0-53.0); HGB 13.4 gm/dL (13.0-17.5); MCHC 32.8 g/dL (31.0-37.0); MCV 100.5 fL (80.0-100.0); Mean Platelet Volume 6.5; Platelet Count 287 k/uL (150-450); RBC 4.06 m/uL (4.30-5.90); RDW 12.8 % (11.5-15.5); WBC 10.1 k/uL (3.8-10.6)
== END | disposition home or self-care (01) ==
LOC: LABPAT 13:25
PROVIDERS: ATTEND Internal Medicine Clinical Cardiac Electrophysiology
DX: Z01.812 Encounter for preprocedural laboratory examination (principal); I44.1 Atrioventricular block, second degree
CPT/HCPCS: 36415; 82947; 85027

== ENCOUNTER 2018-02-14 15:21 | Day surgery (SDC) | payer MEDICARE, OTHER ==
[2018-02-10 11:35] VITALS: BMI 25.4
[~2018-02-14 15:21] MED LIST: CLINDAMYCIN 600 MG in SODIUM CHLORIDE 0.9% IRRIGATIO 250 ML IRRIGATION ONE; CLINDAMYCIN 900 MG in DEXTROSE 5% IN WATER 50 ML IVPB ONE; SODIUM CHLORIDE 0.9% 1,000 ML IV SCH
[2018-02-14] MEDS ORDERED: IOPAMIDOL-250 50ML BTL IV ONE (18:08)
[2018-02-14] MEDS ORDERED: LIDOCAINE 1% INJ 10MG/ML (20 ML MDV) ONE (18:11)
[2018-02-14] MEDS ORDERED: fentaNYL (PF) 50 MCG/ML 2 ML AMP ONE (18:20)
[2018-02-14] MEDS ORDERED: MIDAZOLAM 2 MG/2 ML VIAL ONE (18:20)
[2018-02-14] MEDS: MIDAZOLAM 2 MG/2 ML VIAL IV ONE ×2 (18:30→18:35)
[2018-02-14] MEDS ORDERED: LIDOCAINE 1% INJ 10MG/ML (20 ML MDV) SQ ONE ×2 (18:30→18:40)
[2018-02-14] MEDS ORDERED: fentaNYL (PF) 50 MCG/ML 2 ML AMP IV ONE ×2 (18:30→18:35)
[2018-02-14] MEDS ORDERED: ACETAMINOPHEN TAB 325 MG TAB PO PRN (19:55)
[2018-02-14] MEDS ORDERED: ACETAMINOPHEN IV (For NPO) 1,000 MG in EMPTY BAG 1 BAG IVPB ONE (19:55)
[2018-02-14] MEDS ORDERED: HYDROcodone/APAP 5-325MG 1 EACH TAB PO PRN (19:55)
--- NOTE | 2018-02-14 20:17 | P.PCN ---
Preoperative Diagnosis: Patient underwent EP procedure under conscious sedation/moderate sedation, monitoring of the level of consciousness and physiologic parameters including but not limited to vital signs and oxygenation. Patient tolerated the procedure well without any acute complications. Start time: 1827 Stop time: 1934
[2018-02-14] MEDS: hydrALAZINE HCL 50 MG TAB PO SCH (20:23)
--- NOTE | 2018-02-14 22:05 | PCN ---
PROCEDURE NOTE 87-year-old male patient referred by Dr. Call for permanent pacemaker implantation for dizziness and symptomatic bradycardia with sinus bradycardia in the mid 30s in 40s and sometimes even lower as well as second-degree type 2 AV block and at baseline today his CA interval was prolonged at 266 milliseconds with a right bundle branch block pattern. Patient was brought to the EP lab in a fasting state. Written informed consent was obtained prior to the procedure. The left shoulder area was prepped and draped as per protocol. 1% lidocaine was used for local anesthesia. A 4 cm incision was made parallel to the deltopectoral groove, about 1.5 cm medial to it. The incision was carried down to the level of the pectoralis muscle. A subfascial pocket was made. Hemostasis was assured. The left axillary vein was accessed at 2 separate points under fluoroscopy and via appropriately-sized introducer sheaths, 2 leads were positioned in the right heart. The atrial lead was a 45 cm passive lead model #4574, serial number [id number]. This is positioned the right atrial appendage. P waves 5.6 mV. Pacing impedance 917 ohms, pacing threshold 0.4 V at 0.5 milliseconds. The RV lead was a screw-in lead positioned in the RV septum. protocol was followed. This was a 58 cm lead model #5076 serial number [id number]. R-waves 13.8 mV. Pacing impedance [id number] ohms. Pacing threshold 0.6 V at 0.5 milliseconds. 10 V test negative. Both leads were secured to the underlying pectoralis fascia using two nonabsorbable sutures. Pocket was irrigated with antibiotic solution. Leads were connected to the generator ([employer] model number A2DR01 serial number [id number]). The leads and generator were placed in subfascial pocket. The wound was closed in 3 layers and dressed per protocol. RESULTS: The patient referred by Dr. Call for management of symptomatic bradycardia. Dual- chamber pacemaker was implanted. The device was programmed to AAI to DDD mode with MVP mode on for RV pacing management. Successful dual chamber pacemaker implantation under conscious sedation. Please see separate report for conscious sedation. MMODL / IJN: [id number] /
[2018-02-15] MEDS: CLINDAMYCIN 900 MG in DEXTROSE 5% IN WATER 50 ML IVPB SCH ×8 (00:04→18:36)
[2018-02-15] MEDS ORDERED: MIDODRINE 5 MG TAB PO SCH (07:30)
[2018-02-15] MEDS ORDERED: PANTOPRAZOLE 40 MG TABLET PO SCH (07:30)
[2018-02-15 07:54] VITALS: RESP 16
--- NOTE | 2018-02-15 08:33 | XR ---
EXAMINATION TYPE: XR chest 2V DATE OF EXAM: 02/15/2018 COMPARISON: Prior chest x-ray 12/08/2017 HISTORY: Lead placement check TECHNIQUE: Frontal and lateral views of the chest are obtained. FINDINGS: There has been interval placement of a generator in the left pectoral region with leads in the right atrium and ventricle. No pneumothorax or pleural effusion evident. Cardiomediastinal silho uette, pulmonary vascularity and yamil are unchanged. Postop change noted to the right shoulder. Arthr opathy noted in the left shoulder. Patient is rotated. IMPRESSION: No evident complication status post pacemaker placement.
[2018-02-15] MEDS ORDERED: ASPIRIN 81 MG PO SCH (09:00)
[2018-02-15] MEDS: hydrALAZINE HCL 50 MG TAB PO SCH (09:15)
--- NOTE | 2018-02-15 15:50 | P.DS ---
Providers Attending physician: Ponce Flores Primary care physician: [facility] [place] Course: Patient denies any chest discomfort or shortness of breath. However he gets quite dizzy when he stands up from a supine position which has been a chronic finding and he is on Florinef and Midrin. Yesterday his blood pressure very high and I gave him oral hydralazine. Pacemaker site is healed well pacemaker interrogation is within normal limits chest x-ray is within normal limits Heart sounds S1 and S2 are normal Breath sounds are clear no rhonchi no crackles Abdomen soft nontender No hematoma over the pacemaker site Impression significant daytime bradycardia as well as evidence of AV node disease associated with dizzy spells Status post dual-chamber pacemaker which is functioning normally today #2 dysautonomia Plan: Discharge home today after completion of IV antibiotics and follow with device clinic and Dr. Thompson as before and continue home medications Patient Condition at Discharge: Stable Plan - Discharge Summary Discharge Rx Participant: No New Discharge Prescriptions: Continue Cyanocobalamin [Vitamin B-12] 2,000 mcg PO DAILY Aspirin EC [Ecotrin Low Dose] 81 mg PO DAILY Ascorbic Acid [Vitamin C] 500 mg PO DAILY Esomeprazole Magnesium [NexIUM] 40 mg PO DAILY Zinc 50 mg PO DAILY Tamsulosin HCl [Flomax] 0.4 mg PO HS Fludrocortisone [Florinef] 0.1 mg PO DAILY Multivitamins, Thera [Multivitamin (formulary)] 1 tab PO DAILY Midodrine [ProAmatine] 7.5 mg PO AC-TID [place]-3 Fatty Acids/Fish Oil [Fish Oil 1,000 mg Softgel] 1 each PO DAILY Discharge Medication List Ascorbic Acid [Vitamin C] 500 mg PO DAILY 04/18/14 [History] Aspirin EC [Ecotrin Low Dose] 81 mg PO DAILY 04/18/14 [History] Cyanocobalamin [Vitamin B-12] 2,000 mcg PO DAILY 04/18/14 [History] Esomeprazole Magnesium [NexIUM] 40 mg PO DAILY 04/18/14 [History] Zinc 50 mg PO DAILY 04/18/14 [History] Tamsulosin HCl [Flomax] 0.4 mg PO HS 09/20/17 [History] Fludrocortisone [Florinef] 0.1 mg PO DAILY 12/08/17 [History] Midodrine [ProAmatine] 7.5 mg PO AC-TID 02/10/18 [History] Multivitamins, Thera [Multivitamin (formulary)] 1 tab PO DAILY 02/10/18 [History ] [place]-3 Fatty Acids/Fish Oil [Fish Oil 1,000 mg Softgel] 1 each PO DAILY [History] Follow up Appointment(s)/Referral(s): Hamilton Call MD [STAFF PHYSICIAN] - 02/23/18 4:00 pm (Device clinic follow- up in and visit with Dr. Call ) Patient Instructions/Handouts: Pacemaker (DC) Activity/Diet/Wound Care/Special Instructions: PATIENT EDUCATION MATERIAL Instructions following a heart rhythm device implant. 1. Keep dressing DRY for 5 DAYS. You may cover the area with Saran or Cling Wrap, prior to a shower. 2. The dressing will be removed in the Device Clinic at [facility]. Absorbable sutures were used to close the wound. 3. Avoid raising the left arm above the shoulder level. 4 week restriction 4. Avoid arm movements, like backscratching, rubbing the head, or pulling on a cord. 4 weeks restriction 5. Gentle range of motion movements of the shoulder, closest to the incision should be performed to avoid a frozen shoulder. (Pendulum exercises of the shoulder) 6. The opposite arm may be used freely. 7. Avoid driving for 7 days. 8. Avoid activities such as golfing, swimming, weed whacking, lifting more than 10 pounds weight, bowling, gymnastics and weight training/lifting. (6 weeks restriction) 9. Activities such as wood chopping with an axe, pull-ups in the gymnasium, power lifting, arc-welding, being close to home induction cooktops will always be a problem. 10. Arm sling is only a reminder not to raise the arm above the head. You do not need to keep the arm completely immobilized. Your free to move the arm and use it and for normal activities. In case of any problems, please call [facility], Jessica Powell, @ [phone], Attention: Device Clinic Device clinic follow-up in 5 days Follow-up with primary stacker as previously scheduled Discharge Disposition: HOME SELF-CARE
[2018-02-15 16:04] VITALS: BP 209/83; PULSE 64; TEMP 98
[2018-02-15] MEDS ORDERED: CLINDAMYCIN 150 MG CAP PO STA (18:34)
== END 2018-02-15 19:16 | disposition home or self-care (01) ==
LOC: CATHEP 15:21 → 3OBS 19:35 → CATHEP 02-15 19:16
PROVIDERS: ATTEND Internal Medicine Clinical Cardiac Electrophysiology
DX: I44.1 Atrioventricular block, second degree (principal); R00.1 Bradycardia, unspecified; I45.10 Unspecified right bundle-branch block; I25.118 Atherosclerotic heart disease of native coronary artery with other forms of angina pectoris; I10 Essential (primary) hypertension; E78.5 Hyperlipidemia, unspecified; F17.210 Nicotine dependence, cigarettes, uncomplicated; Z86.73 Personal history of transient ischemic attack (TIA), and cerebral infarction without residual deficits; Z79.82 Long term (current) use of aspirin; Z79.51 Long term (current) use of inhaled steroids; Z79.52 Long term (current) use of systemic steroids; Z79.899 Other long term (current) drug therapy; Z88.0 Allergy status to penicillin
CPT/HCPCS: 33208; 71046; C1769 ×3; C1892; C1785; C1898 ×2; J2250; J2001; J3010; Q9966

== ENCOUNTER 2018-07-12 20:52 | Emergency (ER) | payer MEDICARE, OTHER ==
[2018-07-12] MEDS ORDERED: MORPHINE SULFATE 4 MG/ML SYRINGE IV STA (21:47)
[2018-07-12 22:30] LABS: Basophils % (A) 0 %; Eosinophils # (A) 0.2 k/uL (0-0.7); Eosinophils % (A) 2 %; HCT 38.3 % (39.0-53.0); HGB 12.5 gm/dL (13.0-17.5); Lymphocytes # (A) 1.8 k/uL (1.0-4.8); Lymphocytes % (A) 18 %; MCHC 32.6 g/dL (31.0-37.0); MCV 98.1 fL (80.0-100.0); Mean Platelet Volume 6.8; Monocytes # (A) 0.7 k/uL (0-1.0); Monocytes % (A) 7 %; Neutrophils # (A) 7.4 k/uL (1.3-7.7); Neutrophils % (A) 72 %; Platelet Count 230 k/uL (150-450); RDW 12.7 % (11.5-15.5); WBC 10.3 k/uL (3.8-10.6)
[2018-07-12 22:43] LABS: Albumin 4.1 g/dL (3.5-5.0); Appearance,Urine Clear (Clear); Bilirubin,Urine Negative (Negative); Blood,Urine Negative (Negative); Calcium 9.1 mg/dL (8.4-10.2); Color,Urine Yellow; Glucose,Urine (UA) Negative (Negative); Ketones,Urine Negative (Negative); Leukocyte Esterase,Urine Negative (Negative); Nitrite,Urine Negative (Negative); Potassium 4.2 mmol/L (3.5-5.1); Protein,Urine Negative (Negative); Specific Gravity,Urine 1.004 (1.001-1.035); Total Bilirubin 1.4 mg/dL (0.2-1.3); Total Protein 7.4 g/dL (6.3-8.2); Urobilinogen,Urine <2.0 mg/dL (<2.0)
[2018-07-12] MEDS ORDERED: SODIUM CHLORIDE 0.9% 500 ML 500 ML IV STA (22:47)
[2018-07-13] MEDS ORDERED: amLODIPine 5 MG TAB PO STA (00:11)
--- NOTE | 2018-07-13 00:34 | ED ---
General Adult HPI <Malu Turner - Last Filed: 07/13/18 04:03> - General Source: patient, RN notes reviewed, old records reviewed Mode of arrival: ambulatory Limitations: no limitations <Paulino Solo - Last Filed: 07/14/18 14:21> - General Chief complaint: Abdominal Pain Stated complaint: Back pain,high BP Time Seen by Provider: 07/12/18 21:24 - History of Present Illness Initial comments: 87-year-old male patient with past medical history of hypertension, BPH, presents to ED with 5 days of flank / paralumbar back pain. Patient reports that he believes it started after he strained himself while getting up off the couch. Patient exercises on a daily basis, states that he experiences paralumbar back pain while exercising. Patient states that he does not have pain at rest. On continued history taking patient also states that he had a fall yesterday when standing up suddenly, patient is a he had a minor trauma to his nose from a chair, denies any loss of consciousness or other injury sustained. Patient is ambulatory without difficulty today. Patient denies chest pain or shortness of breath, abdominal pain, nausea vomiting diarrhea, fever or chills. Patient states that he has issues with hypotension which is why he takes midodrine. Patient does report however that while at the ER he tends to be nervous and has had issues with hypertension. Patient currently denies any headache, changes in vision. Systemic: Pt denies fatigue, fever/chills, rash. Pt denies weakness, night sweats, weight loss. Neuro: Pt denies headache, visual disturbances, syncope or pre-syncope. HEENT: Pt denies ocular discharge or irritation, otalgia, rhinorrhea, pharyngitis or notable lymphadenopathy. Cardiopulmonary: Pt denies chest pain, SOB, heart palpitations, dyspnea on exertion. Abdominal/GI: Pt denies abdominal pain, n/v/d. : Pt denies dysuria, burning w/ urination, frequency/urgency. Denies new onset urinary or bowel incontinence. MSK: Pt denies loss of strength or function in extremities. Neuro: Pt denies new onset weakness, paresthesias. (Paulino Solo) - Related Data Home Medications Medication Instructions Recorded Confirmed Aspirin EC [Ecotrin Low Dose] 81 mg PO DAILY 04/18/14 07/12/18 Tamsulosin HCl [Flomax] 0.4 mg PO HS 09/20/17 07/12/18 Fludrocortisone [Florinef] 0.1 mg PO DAILY 12/08/17 07/12/18 Midodrine [ProAmatine] 5 mg PO QAM 02/10/18 07/12/18 Ascorbic Acid [Vitamin C] 500 mg PO DAILY 07/12/18 07/12/18 Cyanocobalamin (Vitamin B-12) 1,000 mcg PO DAILY 07/12/18 07/12/18 [Vitamin B-12] Metoprolol Succinate (ER) [Toprol 12.5 mg PO DAILY 07/12/18 07/12/18 Xl] Midodrine [ProAmatine] 2.5 mg PO HS 07/12/18 07/12/18 Multivitamins, Thera [Multivitamin 1 tab PO DAILY 07/12/18 07/12/18 (formulary)] Polyethylene Glycol 3350 [Miralax] 17 gm PO DAILY 07/12/18 07/12/18 Shaklee Vivex 1 dose PO DAILY 07/12/18 07/12/18 Zinc 50 mg PO DAILY 07/12/18 07/12/18 Previous Rx's Medication Instructions Recorded Ibuprofen [Motrin] 600 mg PO Q6HR PRN #40 day 07/13/18 Ibuprofen [Motrin] 600 mg PO Q8HR PRN #30 tab 07/13/18 Allergies Allergy/AdvReac Type Severity Reaction Status Date / Time latex Allergy Rash/Hives Verified 07/12/18 21:46 nickel [Nickel] Allergy Rash/Hives Verified 07/12/18 21:46 Penicillins Allergy Rash/Hives Verified 07/12/18 21:46 chrome Allergy Rash/Hives Uncoded 07/12/18 21:46 Review of Systems ROS Other: All systems not noted in ROS Statement are negative. <Malu Turner - Last Filed: 07/13/18 04:03> ROS Other: All systems not noted in ROS Statement are negative. <Paulino Solo - Last Filed: 07/14/18 14:21> ROS Statement: Those systems with pertinent positive or pertinent negative responses have been documented in the HPI. Past Medical History Past Medical History: Asthma, Cancer, CVA/TIA, Dementia, GERD/Reflux, Hypertension, Osteoarthritis (OA), Prostate Disorder Additional Past Medical History / Comment(s): See Dr Flores's H&P, BPH, asthma as a young man, seasonal sinus problems, doudenal ulcer years ago, esophageal stricture and has had dilations, skin cancer removal, cervical arthritis, beginnings of dementia, occas. dizziness History of Any Multi-Drug Resistant Organisms: None Reported Past Surgical History: Orthopedic Surgery Additional Past Surgical History / Comment(s): EGD with dilation, colonoscopy, hemorrhoidectomies, bilateral cataract removals with lens implants, skin cancer removal, R shoulder tendon repair after injury. Past Anesthesia/Blood Transfusion Reactions: No Reported Reaction Past Psychological History: No Psychological Hx Reported Smoking Status: Former smoker - Past Family History Father Family Medical History: Myocardial Infarction (VT) Additional Family Medical History / Comment(s): Father of a VT at the age of 76yrs. Mother Family Medical History: No Reported History Additional Family Medical History / Comment(s): Mother lived to be 94 yrs old. <Paulino Solo - Last Filed: 07/14/18 14:21> General Exam <Malu Turner - Last Filed: 07/13/18 04:03> Limitations: no limitations <Paulino Solo - Last Filed: 07/14/18 14:21> - General Exam Comments Initial Comments: Constitutional: NAD, AOX3, Pt has pleasant affect. HEENT: NC/AT, trachea midline, neck supple, no lymphadenopathy. Posterior pharynx non erythematous, without exudates. External ears appear normal, without discharge. Mucous membranes moist. Eyes PERRLA, EOM intact. There is no scleral icterus. No pallor noted. Cardiopulmonary: RRR, no murmurs, rubs or gallops, no JVD noted. Lungs CTAB in anterior and posterior burks. No peripheral edema. Abdominal exam: Abdomen soft and non-distended. Abdomen non-tender to palpation in all 4 quadrants. Bowel sounds active in LLQ. No hepatosplenomegaly, no masses. No ecchymosis Neuro: CN II-XII intact. No nuchal rigidity. No facial droop or focal deficit. MSK: Cervical and thoracic spine nontender to palpation. Paracervical parathoracic nontender to palpation. Para lumbar spine moderately tender to palpation. No posterior calf tenderness bilaterally, homans sign negative bilaterally. Posterior tibialis and radial pulse +2 bilaterally and equal. Sensation intact in upper and lower extremities. Full active ROM in upper and lower extremities, 5/5 stregnth in upper and lower extremities. (Paulino Solo) Vital Signs 07/12/18 07/12/18 07/12/18 21:03 22:29 23:13 Temperature 98.3 F Pulse Rate 80 60 64 Respiratory 20 16 16 Rate Blood Pressure 215/95 199/103 185/102 O2 Sat by Pulse 98 98 95 Oximetry 07/13/18 07/13/18 07/13/18 00:07 00:22 02:07 Temperature Pulse Rate 67 75 Respiratory 16 16 24 Rate Blood Pressure 180/117 192/108 213/114 O2 Sat by Pulse 97 94 L Oximetry 07/13/18 07/13/18 07/13/18 02:10 02:20 02:25 Temperature Pulse Rate 76 75 75 Respiratory 24 24 16 Rate Blood Pressure 187/99 185/105 198/100 O2 Sat by Pulse 96 95 95 Oximetry 07/13/18 07/13/18 07/13/18 02:30 02:35 02:40 Temperature Pulse Rate 74 73 72 Respiratory 23 14 15 Rate Blood Pressure 201/109 210/109 204/101 O2 Sat by Pulse 97 98 98 Oximetry 07/13/18 07/13/18 07/13/18 02:50 03:05 03:10 Temperature Pulse Rate 76 73 70 Respiratory 8 L 18 20 Rate Blood Pressure 202/103 147/80 168/102 O2 Sat by Pulse 97 98 97 Oximetry 07/13/18 07/13/18 07/13/18 03:20 03:25 03:30 Temperature Pulse Rate 72 71 71 Respiratory 16 16 15 Rate Blood Pressure 182/91 187/84 187/84 O2 Sat by Pulse 93 L 94 L 95 Oximetry 07/13/18 07/13/18 07/13/18 03:35 03:40 03:45 Temperature Pulse Rate 71 68 69 Respiratory 18 12 17 Rate Blood Pressure 176/88 176/88 167/85 O2 Sat by Pulse 95 93 L 95 Oximetry 07/13/18 07/13/18 03:55 04:45 Temperature 98 F Pulse Rate 69 77 Respiratory 16 18 Rate Blood Pressure 162/76 133/77 O2 Sat by Pulse 98 99 Oximetry Medical Decision Making - Lab Data Result diagrams: 07/12/18 22:12 07/12/18 22:12 <Malu Turner - Last Filed: 07/13/18 04:03> - Lab Data Result diagrams: 07/12/18 22:12 07/12/18 22:12 <Paulino Solo Hannah - Last Filed: 07/14/18 14:21> - Medical Decision Making 1:20 am she care was discussed with radiologist motor vehicle salesperson who reviewed computed tomography scan, there is no significant injury to the lumbar spine however he does appear to be an aortic dissection. CTA of the abdomen was ordered. 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 Patient reports that he believes it started after he strained himself while getting up off the couch. Patient exercises on a daily basis, states that he experiences paralumbar back pain while exercising. Patient states that he does not have pain at rest. On continued history taking patient also states that he had a fall yesterday when standing up suddenly, patient is a he had a minor trauma to his nose from a chair, denies any loss of consciousness or other injury sustained. Patient is ambulatory without difficulty today. Patient denies chest pain or shortness of breath, abdominal pain, nausea vomiting diarrhea, fever or chills. Pt vss displayed moderate hyertension. Physical exam displayed : CN II-XII intact. No nuchal rigidity. No facial droop or focal deficit. Abdomen soft and non-distended. Abdomen non-tender to palpation in all 4 quadrants. Bowel sounds active in LLQ. No hepatosplenomegaly, no masses. No ecchymosis. Cervical and thoracic spine nontender to palpation. Paracervical parathoracic nontender to palpation. Para lumbar spine moderately tender to palpation. No posterior calf tenderness bilaterally, homans sign negative bilaterally. Posterior tibialis and radial pulse +2 bilaterally and equal. Sensation intact in upper and lower extremities. Full active ROM in upper and lower extremities, 5/5 stregnth in upper and lower extremities. Laboratory investigations revealed noncompressive CBC. CMP revealed moderate hyponatremia. Amylase lipase within normal limits. UA within normal limits. Noncontrast CT of brain revealed no evidence of acute intracranial abnormality. Patient was signed out to attending physician Dr. Turner prior to completion of imaging modailites. Noncontrast CT of cervical spine revealed no evidence of acute cervical fracture dislocation. Mild T1 anterior to compression fracture which is of indeterminate age may be chronic. Multilevel cervical disc disease. Noncontrast CT of lumbar spine revealed no evidence of acute lumbar fractures or subluxation. Moderate multilevel lumbar disc disease, spondylosis and facet joint arthropathy. 3.1 cm distal abdominal aortic aneurysm and 1.3 cm left common iliac artery aneurysm. Internal displacement of aortic calcification and possible hypodense crescent sign involving mid abdominal aorta raises possibility of aortic dissection or possible intramural hematoma. Upon finding from lumbar CT, patient's blood pressure more aggressively controlled. Patient had been administered 5 mg of amlodipine prior to findings. CT angiography abdomen pelvis without contrast and with IV contrast was done conducted. This displayed a 3.1 cm distal abdominal aortic aneurysm minimally increased in size as compared to prior CT of April 2017. Moderate calcific atherosclerotic disease and chronic thickening along posterior mid abdominal aorta. No evidence of abdominal aortic dissection or acute intramural hematoma. 1.9 centimeter left common iliac artery aneurysm with evidence of focal ulcerated plaque or focal chronic dissection having some appearance of prior CT in April 2017. CT also displayed a right renal cyst, cholelithiasis, small facial hernia and cardiomegaly with prominent coronary artery calcifications. Patient blood pressure was more reasonably controlled at this time. And patient was discharged by Dr. Turner with out patient follow up. (Paulino Solo) - Lab Data Lab Results 07/12/18 07/12/18 07/12/18 Range/Units 22:12 22:12 22:12 WBC 10.3 (3.8-10.6) k/uL RBC 3.90 L (4.30-5.90) m/uL Hgb 12.5 L (13.0-17.5) gm/dL Hct 38.3 L (39.0-53.0) % MCV 98.1 (80.0-100.0) fL MCH 32.0 (25.0-35.0) pg MCHC 32.6 (31.0-37.0) g/dL RDW 12.7 (11.5-15.5) % Plt Count 230 (150-450) k/uL Neutrophils % 72 % Lymphocytes % 18 % Monocytes % 7 % Eosinophils % 2 % Basophils % 0 % Neutrophils # 7.4 (1.3-7.7) k/uL Lymphocytes # 1.8 (1.0-4.8) k/uL Monocytes # 0.7 (0-1.0) k/uL Eosinophils # 0.2 (0-0.7) k/uL Basophils # 0.0 (0-0.2) k/uL Sodium 127 L (137-145) mmol/L Potassium 4.2 (3.5-5.1) mmol/L Chloride 94 L (98-107) mmol/L Carbon Dioxide 23 (22-30) mmol/L Anion Gap 10 mmol/L BUN 16 (9-20) mg/dL Creatinine 1.12 (0.66-1.25) mg/dL Est GFR (CKD-EPI)AfAm 67 (>60 ml/min/1.73 sqM) Est GFR (CKD-EPI)NonAf 58 (>60 ml/min/1.73 sqM) Glucose 99 (74-99) mg/dL Plasma Lactic Acid Frantz (0.7-2.0) mmol/L Calcium 9.1 (8.4-10.2) mg/dL Total Bilirubin 1.4 H (0.2-1.3) mg/dL AST 22 (17-59) U/L ALT 26 (21-72) U/L Alkaline Phosphatase 88 (38-126) U/L Total Protein 7.4 (6.3-8.2) g/dL Albumin 4.1 (3.5-5.0) g/dL Amylase 59 (30-110) U/L Lipase 98 (23-300) U/L Urine Color Yellow Urine Appearance Clear (Clear) Urine pH 6.0 (5.0-8.0) Ur Specific [place] 1.004 (1.001-1.035) Urine Protein Negative (Negative) Urine Glucose (UA) Negative (Negative) Urine Ketones Negative (Negative) Urine Blood Negative (Negative) Urine Nitrite Negative (Negative) Urine Bilirubin Negative (Negative) Urine Urobilinogen <2.0 (<2.0) mg/dL Ur Leukocyte Esterase Negative (Negative) 07/12/18 Range/Units 22:12 WBC (3.8-10.6) k/uL RBC (4.30-5.90) m/uL Hgb (13.0-17.5) gm/dL Hct (39.0-53.0) % MCV (80.0-100.0) fL MCH (25.0-35.0) pg MCHC (31.0-37.0) g/dL RDW (11.5-15.5) % Plt Count (150-450) k/uL Neutrophils % % Lymphocytes % % Monocytes % % Eosinophils % % Basophils % % Neutrophils # (1.3-7.7) k/uL Lymphocytes # (1.0-4.8) k/uL Monocytes # (0-1.0) k/uL Eosinophils # (0-0.7) k/uL Basophils # (0-0.2) k/uL Sodium (137-145) mmol/L Potassium (3.5-5.1) mmol/L Chloride (98-107) mmol/L Carbon Dioxide (22-30) mmol/L Anion Gap mmol/L BUN (9-20) mg/dL Creatinine (0.66-1.25) mg/dL Est GFR (CKD-EPI)AfAm (>60 ml/min/1.73 sqM) Est GFR (CKD-EPI)NonAf (>60 ml/min/1.73 sqM) Glucose (74-99) mg/dL Plasma Lactic Acid Frantz 1.4 (0.7-2.0) mmol/L Calcium (8.4-10.2) mg/dL Total Bilirubin (0.2-1.3) mg/dL AST (17-59) U/L ALT (21-72) U/L Alkaline Phosphatase (38-126) U/L Total Protein (6.3-8.2) g/dL Albumin (3.5-5.0) g/dL Amylase (30-110) U/L Lipase (23-300) U/L Urine Color Urine Appearance (Clear) Urine pH (5.0-8.0) Ur Specific [place] (1.001-1.035) Urine Protein (Negative) Urine Glucose (UA) (Negative) Urine Ketones (Negative) Urine Blood (Negative) Urine Nitrite (Negative) Urine Bilirubin (Negative) Urine Urobilinogen (<2.0) mg/dL Ur Leukocyte Esterase (Negative) Disposition Is patient prescribed a controlled substance at d/c from ED?: No Time of Disposition: 03:38 <Malu Turner - Last Filed: 07/13/18 04:03> Is patient prescribed a controlled substance at d/c from ED?: No Time of Disposition: 00:40 <Paulino Solo - Last Filed: 07/14/18 14:21> Clinical Impression: Fall at home, Back pain, Urinary retention, Aortic dissection, abdominal, Hypertension Disposition: HOME SELF-CARE Condition: Stable Instructions (If sedation given, give patient instructions): Nonruptured Abdominal Aortic Aneurysm (DC), Fall Prevention for Older Adults (ED), Chronic Hypertension (ED), Abdominal Pain (ED) Additional Instructions: Patient to adhere to previously discussed treatment plan and will take medication(s) as directed. Patient to follow up with PCP in 1-2 days. Patient to return to ED if symptoms do not improve. Prescriptions: Ibuprofen [Motrin] 600 mg PO Q6HR PRN #40 day PRN Reason: Pain Ibuprofen [Motrin] 600 mg PO Q8HR PRN #30 tab PRN Reason: Pain Referrals: Cristo Montoya MD [Primary Care Provider] - 1-2 days
--- NOTE | 2018-07-13 01:17 | CT ---
EXAM: CT Lumbar Spine Without Intravenous Contrast CLINICAL HISTORY: Reason: Pain. Back pain. TECHNIQUE: Axial computed tomography images of the lumbar spine without intravenous contrast. CTDI is 20.5 mGy and DLP is 716.7 mGy-cm. This CT exam was performed using one or more of the following dose reduction techniques: automated exposure control, adjustment of the mA and/or kV according to patient size, and/or use of iterative reconstruction technique. COMPARISON: None available FINDINGS: Vertebrae: Lumbar vertebral height and alignment are within normal limits. No evidence of acute lumbar fracture or subluxation. Other bones/joints: Small approximately 1 cm nodular sclerotic density medial left iliac bone which is nonspecific. Discs/spinal canal: Moderate multilevel lumbar disc disease, spondylosis and facet joint arthropathy. No significant osseous lumbar spinal stenosis. Vasculature: Moderate calcific atherosclerotic disease. Infrarenal distal abdominal aortic aneurysm measuring 3.1 cm AP by 2.9 cm transverse. Left common iliac artery aneurysm measuring 1.9 cm. Mid abdominal aorta at level of renal arteries is not dilated measuring 2.5 cm. However, there is internal displacement of calcification with question of hyperdense crescent along the left posterior lateral aspect of the aorta raising possibility of dissection or intramural hematoma. Kidneys: 4.1 cm right renal cyst. IMPRESSION: No evidence of acute lumbar fracture or subluxation. Moderate multilevel lumbar disc disease, spondylosis and facet joint arthropathy. 3.1 cm distal abdominal aortic aneurysm and 1.9 cm left common iliac artery aneurysm. Internal displacement of aortic calcifications and possible hyperdense crescent sign involving mid abdominal aorta raising possibility of aortic dissection or possible intramural hematoma. CTA abdominal aorta would be useful for further evaluation. [employer] 07/13/18 01:21 Call Doctor Regarding Aortic Dissection, called Dr. Turner on 07/13 01:20 (-05:00) 07/13/18 01:21 Call Doctor Regarding Other, called Dr. Turner on 07/13 01:20 (-05:00)
[2018-07-13] MEDS ORDERED: LABETALOL 100 MG in SODIUM CHLORIDE 0.9% 80 ML IV ONE (01:30)
[2018-07-13] MEDS: LABETALOL SYRINGE 5 MG/ML IVP SCH ×3 (01:40→02:09)
--- NOTE | 2018-07-13 01:51 | CT ---
EXAM: CT Head Without Intravenous Contrast CLINICAL HISTORY: Reason: Pain TECHNIQUE: Axial computed tomography images of the head/brain without intravenous contrast. CTDI is 45.2 mGy and DLP is 1116 mGy-cm. This CT exam was performed using one or more of the following dose reduction techniques: automated exposure control, adjustment of the mA and/or kV according to patient size, and/or use of iterative reconstruction technique. COMPARISON: CT head 04/17/2017 FINDINGS: Brain: No evidence of acute transcortical cerebral infarction or intracranial hemorrhage. No abnormal mass effect or midline shift. No abnormal extra-axial collections. Mild cerebral atrophy and chronic white matter ischemic changes. 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 Ventricles: Unremarkable. Bones/joints: No skull fracture identified. Sinuses: Mild bilateral maxillary, ethmoid and frontal sinus mucosal thickening. Minimal left sphenoid sinus mucosal thickening. Mastoid air cells: Mastoid sinuses are clear. Dental: Dental Metallic artifact. IMPRESSION: No evidence of acute intracranial abnormality. Paranasal sinus disease. EXAM: CT Cervical Spine Without Intravenous Contrast CLINICAL HISTORY: Reason: Pain TECHNIQUE: Axial computed tomography images of the cervical spine without intravenous contrast. CTDI is 16.8 mGy and DLP is 545 mGy-cm. This CT exam was performed using one or more of the following dose reduction techniques: automated exposure control, adjustment of the mA and/or kV according to patient size, and/or use of iterative reconstruction technique. COMPARISON: None available FINDINGS: Vertebrae: Cervical vertebral height and alignment are within normal limits except for mild C7-T1 anterolisthesis of approximately 3 mm. C3-4 vertebral fusion. No evidence of acute cervical fracture or dislocation. Mild T1 anterior vertebral compression fracture which is of indeterminate age and may be chronic. Discs/spinal canal/neural foramina: Advanced multilevel cervical disc disease, spondylosis and facet joint arthropathy. Soft tissues: No abnormal prevertebral soft tissue thickening. Lymph nodes: Mild mediastinal adenopathy in the imaged mediastinum. IMPRESSION: No evidence of acute cervical fracture or dislocation. Mild T1 anterior vertebral compression fracture which is of indeterminate age and may be chronic. Multilevel cervical disc disease, spondylosis and facet joint arthropathy. Mild mediastinal lymphadenopathy. [employer] 07/13/18 01:57 Verify Receipt Verified receipt with Dr. Turner on 07/13 01:56 (-05:00)
[2018-07-13] MEDS ORDERED: NITROGLYCERIN-D5W PMX 50 MG in DEXTROSE/WATER 1 250ML.BAG IV ONE (02:11)
[2018-07-13] MEDS ORDERED: ENALAPRILAT 1.25 MG/ML 1 ML VIAL IVP STA (02:42)
--- NOTE | 2018-07-13 03:01 | CT ---
EXAM: CT Angiography Abdomen and Pelvis Without And With Intravenous Contrast CLINICAL HISTORY: Reason: Pain TECHNIQUE: Axial computed tomographic angiography images of the abdomen and pelvis without and with intravenous contrast. CTDI is 88.0 mGy and DLP is 1198. 5 mGy-cm. This CT exam was performed using one or more of the following dose reduction techniques: automated exposure control, adjustment of the mA and/or kV according to patient size, and/or use of iterative reconstruction technique. MIP reconstructed images were created and reviewed. COMPARISON: CT abdomen-pelvis 04/17/2017. CT lumbar spine 07/13/2018 FINDINGS: VASCULATURE: Aorta: Moderate calcific atherosclerotic disease. Mid abdominal aorta is of normal caliber measuring 2.5 cm in maximum AP diameter. Chronic thickening along the posterior mid abdominal aorta demonstrates similar appearance to prior CT abdomen of 04/17/2017. No evidence of acute aortic dissection or intramural hematoma. Infrarenal distal abdominal aortic aneurysm measures 3.1 cm AP by 2.9 cm transverse which is only minimally increased as compared to 04/17/2017 at which time maximum measurement was 2.8 cm. No evidence of periaortic hemorrhage or hematoma. 1.9 cm left common iliac artery aneurysm not significantly changed since 04/17/17. There is evidence of focal ulcerated plaque or possible focal chronic dissection involving left common iliac artery aneurysm demonstrating similar appearance on prior CT of 04/17/2017. Lung bases: Dependent atelectatic changes in both lung bases. Heart: Cardiomegaly with prominent coronary arterial calcifications. Cardiac pacer leads are present. Mediastinum: Small hiatal hernia. ABDOMEN: Liver: Liver is unremarkable. Gallbladder and bile ducts: Cholelithiasis with small calcified gallstones. No evidence of biliary dilatation. Pancreas: Pancreas is unremarkable. Spleen: Spleen is unremarkable. Adrenals: No adrenal masses. Kidneys and ureters: Bilateral symmetric renal enhancement. No evidence of hydronephrosis. 4.0 cm right mid zone renal cyst mildly increased in size since 04/17/2017. Stomach and bowel: No evidence of bowel obstruction or pneumoperitoneum. PELVIS: Appendix: No findings to suggest acute appendicitis. Bladder: Urinary bladder is unremarkable. No bladder calculi. Reproductive: Moderate prostatic enlargement. ABDOMEN and PELVIS: Intraperitoneal space: See above. Bones/joints: No acute bony abnormalities. Lymph nodes: No evidence of lymphadenopathy. IMPRESSION: 3.1 cm distal abdominal aortic aneurysm minimally increased in size as compared to prior CT of 04/17/2017. Moderate calcific atherosclerotic disease and chronic thickening along posterior mid abdominal aorta. No evidence of abdominal aortic dissection or acute intramural hematoma. 1.9 cm left common iliac artery aneurysm with evidence of focal ulcerated plaque or focal chronic dissection having similar appearance on prior CT of 04/17/2017. Right renal cyst. Cholelithiasis. Small hiatal hernia. Cardiomegaly with prominent coronary arterial calcifications. Critical [employer] 07/13/18 02:33 Call From [facility] Dr. Turner on 07/13 02:32 (-05:00)
[2018-07-13 04:47] VITALS: BP 133/77; PULSE 77; RESP 18; TEMP 98
== END 2018-07-13 04:15 | disposition home or self-care (01) ==
LOC: EC 20:52
DX: I71.02 Dissection of abdominal aorta (principal); I10 Essential (primary) hypertension; M54.5 Low back pain; R33.9 Retention of urine, unspecified; N40.0 Benign prostatic hyperplasia without lower urinary tract symptoms; I95.9 Hypotension, unspecified; Z86.73 Personal history of transient ischemic attack (TIA), and cerebral infarction without residual deficits; Z85.828 Personal history of other malignant neoplasm of skin; Z87.891 Personal history of nicotine dependence; Z79.82 Long term (current) use of aspirin; Z79.52 Long term (current) use of systemic steroids; Z79.899 Other long term (current) drug therapy; Z91.040 Latex allergy status; Z91.048 Other nonmedicinal substance allergy status; Z88.0 Allergy status to penicillin; W19.XXXA Unspecified fall, initial encounter; Y92.009 Unspecified place in unspecified non-institutional (private) residence as the place of occurrence of the external cause
CPT/HCPCS: 99285; 96365; 96368; 96374; 96375; 96376; 36415; 93005; 80053; 82150; 83605; 83690; 85025; 81003; 72125; 72131; 70450; 74174; J2270; Q9967

== ENCOUNTER 2018-07-31 13:51 | Inpatient (IN) | payer MEDICARE ==
[2018-07-31] MEDS ORDERED: SODIUM CHLORIDE 0.9% 1,000 ML IV STA (14:25)
[2018-07-31 14:41] LABS: Basophils % (A) 0 %; Eosinophils # (A) 0.1 k/uL (0-0.7); Eosinophils % (A) 1 %; HGB 14.4 gm/dL (13.0-17.5); Lymphocytes # (A) 0.8 k/uL (1.0-4.8); Lymphocytes % (A) 7 %; MCH 33.6 pg (25.0-35.0); MCHC 33.6 g/dL (31.0-37.0); Mean Platelet Volume 6.8; Monocytes # (A) 0.5 k/uL (0-1.0); Monocytes % (A) 4 %; Neutrophils # (A) 11.2 k/uL (1.3-7.7); Neutrophils % (A) 88 %; Platelet Count 290 k/uL (150-450); RDW 12.6 % (11.5-15.5); WBC 12.7 k/uL (3.8-10.6)
[2018-07-31 14:49] LABS: Albumin 4.7 g/dL (3.5-5.0); Magnesium 1.9 mg/dL (1.6-2.3); Phosphorus 3.3 mg/dL (2.5-4.5); Total Bilirubin 1.6 mg/dL (0.2-1.3); Total Protein 8.3 g/dL (6.3-8.2)
--- NOTE | 2018-07-31 14:52 | ED ---
Dizziness HPI - General Chief Complaint: Dizziness Stated Complaint: Lightheaded Time Seen by Provider: 07/31/18 14:24 Source: patient, RN notes reviewed, old records reviewed Mode of arrival: wheelchair Limitations: no limitations - History of Present Illness Initial Comments: This is a 87-year-old male the ER for evaluation. Presents today for evaluation regards to dizziness and weakness. Elevated blood pressure not feeling well. Patient also is complaining of shortness of breath. Patient has history of heart disease, admits to blood pressure being severely elevated today. States it always is throughout the middle of the day. Denies any fevers no chest pain. is complaining of pain neck and back but he states he does have history of arthritis feels similar in the same as prior. No new traumas. MD Complaint: dizziness, lightheadedness -: hour(s) Timing: gradual onset Description: lightheadedness History of Same: Yes History of Trauma: No Severity: mild Improves With: nothing Worsens With: nothing Associated Symptoms: shortness of breath, weakness - Related Data Home Medications Medication Instructions Recorded Confirmed Aspirin EC [Ecotrin Low Dose] 81 mg PO DAILY 04/18/14 07/31/18 Tamsulosin HCl [Flomax] 0.4 mg PO HS 09/20/17 07/31/18 Midodrine [ProAmatine] 5 mg PO BID 02/10/18 07/31/18 Ascorbic Acid [Vitamin C] 500 mg PO DAILY 07/12/18 07/31/18 Metoprolol Succinate (ER) [Toprol 12.5 mg PO DAILY 07/12/18 07/31/18 Xl] Multivitamins, Thera [Multivitamin 1 tab PO DAILY 07/12/18 07/31/18 (formulary)] Zinc 50 mg PO DAILY 07/12/18 07/31/18 Calcium Carbonate [Tums] 500 mg PO TID PRN 07/31/18 07/31/18 Ibuprofen [Motrin] 600 mg PO BID PRN 07/31/18 07/31/18 Isosorbide Mononitrate ER [Imdur] 30 mg PO DAILY 07/31/18 07/31/18 Tumeric (Unknown) 1 tab PO HS 07/31/18 07/31/18 Allergies Allergy/AdvReac Type Severity Reaction Status Date / Time latex Allergy Rash/Hives Verified 07/31/18 14:44 nickel [Nickel] Allergy Rash/Hives Verified 07/31/18 14:44 Penicillins Allergy Rash/Hives Verified 07/31/18 14:44 chrome Allergy Rash/Hives Uncoded 07/12/18 21:46 Review of Systems ROS Statement: Those systems with pertinent positive or pertinent negative responses have been documented in the HPI. ROS Other: All systems not noted in ROS Statement are negative. Past Medical History Past Medical History: Asthma, Cancer, CVA/TIA, Dementia, GERD/Reflux, Hypertension, Osteoarthritis (OA), Prostate Disorder Additional Past Medical History / Comment(s): See Dr Flores's H&P, BPH, asthma as a young man, seasonal sinus problems, doudenal ulcer years ago, esophageal stricture and has had dilations, skin cancer removal, cervical arthritis, beginnings of dementia, occas. dizziness History of Any Multi-Drug Resistant Organisms: None Reported Past Surgical History: Orthopedic Surgery Additional Past Surgical History / Comment(s): EGD with dilation, colonoscopy, hemorrhoidectomies, bilateral cataract removals with lens implants, skin cancer removal, R shoulder tendon repair after injury. Past Anesthesia/Blood Transfusion Reactions: No Reported Reaction Past Psychological History: No Psychological Hx Reported Smoking Status: Former smoker - Past Family History Father Family Medical History: Myocardial Infarction ([place]) Additional Family Medical History / Comment(s): Father of a [place] at the age of 76yrs. Mother Family Medical History: No Reported History Additional Family Medical History / Comment(s): Mother lived to be 94 yrs old. General Exam Limitations: no limitations General appearance: alert, in no apparent distress Head exam: Present: atraumatic, normocephalic, normal inspection Eye exam: Present: normal appearance, PERRL, EOMI. Absent: scleral icterus, conjunctival injection, periorbital swelling ENT exam: Present: normal exam, mucous membranes moist Neck exam: Present: normal inspection. Absent: tenderness, meningismus, lymphadenopathy Respiratory exam: Present: normal lung sounds bilaterally. Absent: respiratory distress, wheezes, rales, rhonchi, stridor Cardiovascular Exam: Present: regular rate, normal rhythm, normal heart sounds. Absent: systolic murmur, diastolic murmur, rubs, gallop, clicks GI/Abdominal exam: Present: soft, normal bowel sounds. Absent: distended, tenderness, guarding, rebound, rigid Extremities exam: Present: normal inspection, full ROM, normal capillary refill. Absent: tenderness, pedal edema, joint swelling, calf tenderness Back exam: Present: normal inspection Neurological exam: Present: alert, oriented X3, CN II-XII intact Psychiatric exam: Present: normal affect, normal mood Skin exam: Present: warm, dry, intact, normal color. Absent: rash Course Vital Signs 07/31/18 07/31/18 07/31/18 13:59 14:00 15:23 Temperature 97.9 F 97.9 F Pulse Rate 77 77 60 Respiratory 16 18 18 Rate Blood Pressure 166/84 166/84 149/86 O2 Sat by Pulse 98 98 97 Oximetry 07/31/18 18:00 Temperature Pulse Rate 69 Respiratory 18 Rate Blood Pressure 209/103 O2 Sat by Pulse 97 Oximetry - Reevaluation(s) Reevaluation #1: 07/31/18 16:09 Medical record is reviewed Reevaluation #2: 07/31/18 16:09 Patient with no significant clinical improvement currently Reevaluation #3: 07/31/18 18:52 Patient needs to be admitted for improved blood pressure control labile hypertension EKG Findings - EKG Comments: EKG Findings:: EKG shows sinus rhythm rate of 69, NV 240, QRS 134, QTc 456 Medical Decision Making - Medical Decision Making 87 male the ER for evaluation will admit for evaluation of blood pressure control. Patient having labile blood pressure here in the ER requiring blood pressure treatment - Lab Data Result diagrams: 07/31/18 14:30 07/31/18 14:30 Lab Results 07/31/18 07/31/18 07/31/18 Range/Units 14:30 14:30 14:30 WBC 12.7 H (3.8-10.6) k/uL RBC 4.30 (4.30-5.90) m/uL Hgb 14.4 (13.0-17.5) gm/dL Hct 43.0 (39.0-53.0) % MCV 100.0 (80.0-100.0) fL MCH 33.6 (25.0-35.0) pg MCHC 33.6 (31.0-37.0) g/dL RDW 12.6 (11.5-15.5) % Plt Count 290 (150-450) k/uL Neutrophils % 88 % Lymphocytes % 7 % Monocytes % 4 % Eosinophils % 1 % Basophils % 0 % Neutrophils # 11.2 H (1.3-7.7) k/uL Lymphocytes # 0.8 L (1.0-4.8) k/uL Monocytes # 0.5 (0-1.0) k/uL Eosinophils # 0.1 (0-0.7) k/uL Basophils # 0.0 (0-0.2) k/uL Sodium 135 L (137-145) mmol/L Potassium 5.0 (3.5-5.1) mmol/L Chloride 100 (98-107) mmol/L Carbon Dioxide 22 (22-30) mmol/L Anion Gap 13 mmol/L BUN 26 H (9-20) mg/dL Creatinine 1.67 H (0.66-1.25) mg/dL Est GFR (CKD-EPI)AfAm 41 (>60 ml/min/1.73 sqM) Est GFR (CKD-EPI)NonAf 36 (>60 ml/min/1.73 sqM) Glucose 136 H (74-99) mg/dL Calcium 10.0 (8.4-10.2) mg/dL Phosphorus 3.3 (2.5-4.5) mg/dL Magnesium 1.9 (1.6-2.3) mg/dL Total Bilirubin 1.6 H (0.2-1.3) mg/dL AST 20 (17-59) U/L ALT 27 (21-72) U/L Alkaline Phosphatase 107 (38-126) U/L Troponin I <0.012 (0.000-0.034) ng/mL Total Protein 8.3 H (6.3-8.2) g/dL Albumin 4.7 (3.5-5.0) g/dL TSH (0.465-4.680) mIU/L Free T4 (0.78-2.19) ng/dL 07/31/18 Range/Units 14:30 WBC (3.8-10.6) k/uL RBC (4.30-5.90) m/uL Hgb (13.0-17.5) gm/dL Hct (39.0-53.0) % MCV (80.0-100.0) fL MCH (25.0-35.0) pg MCHC (31.0-37.0) g/dL RDW (11.5-15.5) % Plt Count (150-450) k/uL Neutrophils % % Lymphocytes % % Monocytes % % Eosinophils % % Basophils % % Neutrophils # (1.3-7.7) k/uL Lymphocytes # (1.0-4.8) k/uL Monocytes # (0-1.0) k/uL Eosinophils # (0-0.7) k/uL Basophils # (0-0.2) k/uL Sodium (137-145) mmol/L Potassium (3.5-5.1) mmol/L Chloride (98-107) mmol/L Carbon Dioxide (22-30) mmol/L Anion Gap mmol/L BUN (9-20) mg/dL Creatinine (0.66-1.25) mg/dL Est GFR (CKD-EPI)AfAm (>60 ml/min/1.73 sqM) Est GFR (CKD-EPI)NonAf (>60 ml/min/1.73 sqM) Glucose (74-99) mg/dL Calcium (8.4-10.2) mg/dL Phosphorus (2.5-4.5) mg/dL Magnesium (1.6-2.3) mg/dL Total Bilirubin (0.2-1.3) mg/dL AST (17-59) U/L ALT (21-72) U/L Alkaline Phosphatase (38-126) U/L Troponin I (0.000-0.034) ng/mL Total Protein (6.3-8.2) g/dL Albumin (3.5-5.0) g/dL TSH 5.070 H (0.465-4.680) mIU/L Free T4 1.30 (0.78-2.19) ng/dL - Radiology Data Radiology results: report reviewed (CT brain chest x-rays negative for acute disease), image reviewed Disposition Clinical Impression: Hypertension, Weakness Disposition: ADMITTED IP TO THIS [facility] Condition: Fair Is patient prescribed a controlled substance at d/c from ED?: No Referrals: Cristo Montoya MD [Primary Care Provider] - 1-2 days
[2018-07-31] MEDS ORDERED: hydrALAZINE HCL 20 MG/ML 1 ML VIAL IVP STA (14:58)
--- NOTE | 2018-07-31 15:51 | CT ---
EXAMINATION TYPE: CT brain wo con DATE OF EXAM: 07/31/2018 COMPARISON: 07/12/2028 INDICATION: Weakness and dizziness DLP: 1099.4 mGycm, Automated exposure control for dose reduction was used. CONTRAST: None CT of the brain is performed utilizing 3 mm thick sections through the posterior fossa and 3 mm thick sections through the remaining calvarium. Study is performed within 24 hours of arrival to the hosp ital. No abnormal hyperdensity is present to suggest an acute intracranial hemorrhage. No mass lesion is evident. No acute infarcts are evident. Periventricular white matter hypodensity is present, likely on the bas is of chronic white matter ischemic changes. Ventricles and sulci are appropriate for the patient age. Paranasal sinuses and mastoid air cells within the [id number] are clear. IMPRESSIONS: 1. Chronic appearing white matter ischemic changes
[2018-07-31 16:55] LABS: T4, Free (Free Thyroxine) 1.3 ng/dL (0.78-2.19)
--- NOTE | 2018-07-31 17:19 | XR ---
EXAMINATION TYPE: XR chest 2V DATE OF EXAM: 07/31/2018 COMPARISON: 02/15/2018 INDICATION: Pain dizziness asthma TECHNIQUE: Frontal and lateral views of the chest are obtained. FINDINGS: The heart size is normal. The pulmonary vasculature is normal. The lungs are clear. Pacemaker overlies left chest. IMPRESSION: 1. No acute pulmonary process.
[2018-07-31] MEDS ORDERED: NITROGLYCERIN SL TABS 0.4 MG TAB SUBLINGUAL PRN (18:49)
[2018-07-31] MEDS ORDERED: MORPHINE SULFATE 4 MG/ML SYRINGE IVP PRN (19:38)
[2018-07-31] MEDS ORDERED: MORPHINE SULFATE 4 MG/ML SYRINGE IVP STA (19:38)
[2018-07-31] MEDS ORDERED: ONDANSETRON 4 MG/2 ML VIAL IVP PRN (22:07)
[2018-07-31] MEDS: TAMSULOSIN 0.4 MG CAP.ER.24H PO SCH (22:16)
[2018-08-01] MEDS ORDERED: IBUPROFEN 600 MG TAB PO PRN (00:30)
[2018-08-01] MEDS ORDERED: HYDROcodone/APAP 5-325MG 1 EACH TAB PO PRN (00:31)
[2018-08-01] MEDS ORDERED: CALCIUM CARBONATE 500 MG CHEWABLE PO PRN (01:00)
[2018-08-01 01:24] LABS: Appearance,Urine Clear (Clear); Bilirubin,Urine Negative (Negative); Blood,Urine Negative (Negative); Color,Urine Yellow; Glucose,Urine (UA) Negative (Negative); Ketones,Urine Trace (Negative); Leukocyte Esterase,Urine Negative (Negative); Nitrite,Urine Negative (Negative); PH, Urine 6.5 (5.0-8.0); Protein,Urine Negative (Negative); Urobilinogen,Urine <2.0 mg/dL (<2.0)
[2018-08-01 03:13] LABS: Cholesterol 187 mg/dL (<200); HDL Cholesterol 32 mg/dL (40-60); LDL Cholesterol,Calculated 134 mg/dL (0-99); Triglycerides 105 mg/dL (<150)
[2018-08-01] MEDS: hydrALAZINE HCL 20 MG/ML 1 ML VIAL IVP PRN ×2 (05:53→23:54)
[2018-08-01] MEDS: PANTOPRAZOLE 40 MG TABLET PO SCH (05:59)
[2018-08-01] MEDS: ASPIRIN 81 MG PO SCH (08:31)
[2018-08-01] MEDS: TAMSULOSIN 0.4 MG CAP.ER.24H PO SCH (08:34)
[2018-08-01] MEDS: ASCORBIC ACID 500 MG TAB PO SCH (08:34)
[2018-08-01] MEDS: ZINC SULFATE 220 MG CAP PO SCH (08:34)
[2018-08-01] MEDS: POLYETHYLENE GLYCOL 3350 17 GM POWD.PACK PO SCH (08:34)
[2018-08-01] MEDS: ENOXAPARIN 40 MG/0.4 ML SYRINGE SQ SCH (08:34)
[2018-08-01] MEDS ORDERED: ISOSORBIDE MONONITRATE ER 30 MG TAB.ER.24H PO SCH (09:00)
[2018-08-01] MEDS ORDERED: MIDODRINE 5 MG TAB PO SCH (09:00)
[2018-08-01] MEDS ORDERED: ASPIRIN 325 MG TAB PO SCH (09:00)
--- NOTE | 2018-08-01 09:04 | HP ---
HISTORY AND PHYSICAL DATE OF SERVICE: 08/01/2018 CHIEF COMPLAINTS: Dizziness and lightheadedness. HISTORY OF PRESENT ILLNESS: This 87-year-old gentleman with a past medical history of asthma, history of CVA,TIA, dementia, GERD, hypertension, DJD, history of prostate disorder being followed by Dr. Montoya in the outpatient setting was complaining of dizziness. 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 The patient also low blood pressure. Patient came to [facility] and admitted for further evaluation. Patient also had episodes of high blood pressure also today. The patient was given hydralazine. Patient will be monitored closely. There is no history of fever, rigors. No history of headache, loss of consciousness, seizures. PAST MEDICAL HISTORY: History of asthma, CVA, TIA, dementia, GERD, hypertension, DJD, history of prostate disorder. MEDICATIONS: Medications prior to admission include: 1. Flomax 0.4 b.i.d. 2. Tumeric one tablet p.o. q.h.s. 3. Imdur 30 mg p.o. daily. 4. Tums 500 mg t.i.d. p.r.n. 5. Zinc 50 mg p.o. daily. 6. Multivitamins 1 p.o. daily. 7. ProAmatine 5 mg p.o. b.i.d. 8. Toprol-XL 12.5 mg b.i.d. 9. Motrin 600 mg b.i.d. p.r.n. 10.Ecotrin 81 mg p.o. daily. 11.Vitamin C 500 mg p.o. daily. ALLERGIES: Allergies are LATEX, NICKEL, PENICILLIN and CHROME. FAMILY HISTORY: History of myocardial infarction. SOCIAL HISTORY: Previous history of smoking. No history of alcohol intake. REVIEW OF SYSTEMS: ENT: No diminished hearing or diminished vision. CARDIOVASCULAR SYSTEM: As mentioned earlier. RESPIRATORY SYSTEM; No cough or hemoptysis. GI: No nausea. : No dysuria. NERVOUS SYSTEM: As mentioned earlier. ALLERGY/IMMUNOLOGY: As mentioned earlier. MUSCULOSKELETAL: As mentioned earlier. HEMATOLOGY/ONCOLOGY: No history of anemia. ENDOCRINE: No history of diabetes or hypothyroidism. CONSTITUTIONAL: As mentioned earlier. DERMATOLOGY: Negative. RHEUMATOLOGY: Negative. PSYCHIATRY; As mentioned earlier. PHYSICAL EXAMINATION: The patient is alert and oriented x3. Pulse 61, blood pressure 107/52, respiration 18, temperature 97.5, pulse ox 98% on room air. HEENT: Conjunctivae normal. Oral mucosa moist. Neck is no jugular venous distention. No carotid bruit. No lymph node enlargement. CARDIOVASCULAR: S1, S2 muffled. RESPIRATORY: Breath sounds diminished at the bases. No rhonchi, no crackles. ABDOMEN: Soft, nontender. LEGS: No edema, no swelling. NERVOUS SYSTEM: Mild diffuse weakness. LYMPHATICS: No lymphadenopathy of the neck, axillae or groin. SKIN: No ulcer, rash or bleeding. JOINT: No active deforming arthropathy. LABS: WBC 12.7, hemoglobin is 14.4. Sodium 135. Creatinine is 1.67. Total bilirubin 1.6. TSH 5.07. Other labs are CAT scan of the brain, chest x-ray personally reviewed by me showed chronic appearing white matter changes. ASSESSMENT: 1. Weakness for evaluation, rule out hypotension, orthostatic hypotension. 2. Dehydration with possible mild acute renal failure. 3. Increased WBC. 4. History of asthma. 5. History of dementia. 6. History of cerebrovascular accident, transient ischemic attack. 7. Gastroesophageal reflux disease. 8. Hypertension. 9. History of degenerative joint disease. 10.History of benign prostatic hypertrophy. 11.History of esophageal stricture. 12.FULL CODE. RECOMMENDATIONS AND DISCUSSION: This 87-year-old gentleman who presented with multiple complex medical issues, will monitor the patient closely. Continue the current medications. Continues symptomatic treatment. Will check orthostatic vitals and resume the home medications. Monitor blood pressure closely. Cardiology consultation. PT, OT evaluation. damper worker to evaluate the home situation. Guarded prognosis because of multiple complex medical issues. Further recommendations to follow. MMODL / IJN: [id number] /
--- NOTE | 2018-08-01 09:06 | P.CRDCN ---
History of Present Illness Consult date: 08/01/18 Requesting physician: Maximus Canseco Consult reason: hypertension Chief complaint: Dizziness and near syncope History of present illness: This is an 87-year-old gentleman who follows with Dr. Call in the office. He has a known history of hypertension, hyperlipidemia, has had prior cardiac catheterization in 2012 which did not reveal any significant obstructive coronary artery disease. He has had a prior symptoms of syncope, a 24-hour Holter monitor was performed which had revealed multiple episodes of second-degree heart block. For this reason patient underwent implantation of a permanent pacemaker in February of last year by Dr. Flores. Patient also has history of prior smoking and also daily alcohol use. He presents to the hospital on this occasion with symptoms of dizziness and near syncope. Patient also has some chronic neck pain which she felt was contributing to this. According to the patient, when he wakes up in the morning he is very dizzy and lightheaded, his legs and arms are extremely weak. It takes him a couple hours to get the strength to stand up. He also states when he checks his blood pressure in the morning at home it is usually quite low. A CAT scan of the brain was performed on arrival here which revealed chronic appearing white matter changes. Chest x-ray did not reveal any acute pulmonary process. EKG shows a normal sinus rhythm with first-degree AV block and a right bundle branch block pattern. Blood pressure on arrival here 166/84 with a heart rate in the 70s, 98% on room air, his blood pressure did go up to 217/90, this morning's blood pressure 150/70 with a heart rate in the 70s, 95% on room air. The patient had been taking Florinef and midodrine at home as prescribed by Dr. Call. White blood cell count on arrival here 12.7, hemoglobin 14.4, platelet count 290. Sodium 135, potassium 5.0, BUN 26 and creatinine 1.6. Cholesterol 187, LDL 134, HDL 32, TSH 5.0 and free T4 1 0.3, troponins are negative 3. At the time of my examination this morning, patient complains of neck pain, he does have some mild dizziness and lightheadedness. Past Medical History Past Medical History: Asthma, Cancer, CVA/TIA, Dementia, GERD/Reflux, Hypertension, Osteoarthritis (OA), Prostate Disorder Additional Past Medical History / Comment(s): See Dr Flores's H&P, BPH, asthma as a young man, seasonal sinus problems, doudenal ulcer years ago, esophageal stricture and has had dilations, skin cancer removal, cervical arthritis, beginnings of dementia, occas. dizziness History of Any Multi-Drug Resistant Organisms: None Reported Past Surgical History: Orthopedic Surgery Additional Past Surgical History / Comment(s): EGD with dilation, colonoscopy, hemorrhoidectomies, bilateral cataract removals with lens implants, skin cancer removal, R shoulder tendon repair after injury. Past Anesthesia/Blood Transfusion Reactions: No Reported Reaction Past Psychological History: No Psychological Hx Reported Additional Psychological History / Comment(s): Pt resides with his spouse. He drives if he is feeling good. He uses no assistive device. He retired from the [employer]. His is very ill with lung problems and they are looking to place her in hospice. Spouse has home care, pt also assists with her care. Pt wants something set up so his children have access to his medical information, [facility]. Smoking Status: Former smoker Past Alcohol Use History: Daily Additional Past Alcohol Use History / Comment(s): Pt started smoking in 1948 and quit in 1980. He drinks one glass of wine daily . Past Drug Use History: None Reported - Past Family History Father Family Medical History: Myocardial Infarction (NH) Additional Family Medical History / Comment(s): Father of a NH at the age of 76yrs. Mother Family Medical History: No Reported History Additional Family Medical History / Comment(s): Mother lived to be 94 yrs old. Medications and Allergies Home Medications Medication Instructions Recorded Confirmed Type Aspirin EC [Ecotrin Low Dose] 81 mg PO DAILY 04/18/14 07/31/18 History Tamsulosin HCl [Flomax] 0.4 mg PO BID 09/20/17 07/31/18 History Midodrine [ProAmatine] 5 mg PO BID 02/10/18 07/31/18 History Ascorbic Acid [Vitamin C] 500 mg PO DAILY 07/12/18 07/31/18 History Metoprolol Succinate (ER) [Toprol 12.5 mg PO DAILY 07/12/18 07/31/18 History Xl] Multivitamins, Thera [Multivitamin 1 tab PO DAILY 07/12/18 07/31/18 History (formulary)] Zinc 50 mg PO DAILY 07/12/18 07/31/18 History Calcium Carbonate [Tums] 500 mg PO TID PRN 07/31/18 07/31/18 History Ibuprofen [Motrin] 600 mg PO BID PRN 07/31/18 07/31/18 History Isosorbide Mononitrate ER [Imdur] 30 mg PO DAILY 07/31/18 07/31/18 History Tumeric (Unknown) 1 tab PO HS 07/31/18 07/31/18 History Allergies Allergy/AdvReac Type Severity Reaction Status Date / Time latex Allergy Rash/Hives Verified 07/31/18 14:44 nickel [Nickel] Allergy Rash/Hives Verified 07/31/18 14:44 Penicillins Allergy Rash/Hives Verified 07/31/18 14:44 chrome Allergy Rash/Hives Uncoded 07/12/18 21:46 Physical Exam Vitals: Vital Signs Temp Pulse Pulse Pulse Pulse Pulse Resp 08/01/18 07:26 98.1 F 71 18 08/01/18 06:47 08/01/18 06:15 08/01/18 05:45 08/01/18 05:30 98.0 F 78 18 08/01/18 04:00 61 67 69 60 18 08/01/18 01:04 67 69 60 08/01/18 00:00 97.5 F L 61 18 07/31/18 20:00 97.7 F 61 18 07/31/18 19:59 77 16 07/31/18 19:00 74 18 07/31/18 18:00 69 18 07/31/18 15:23 60 18 07/31/18 14:00 97.9 F 77 18 07/31/18 13:59 97.9 F 77 16 BP BP BP BP BP Pulse Ox 08/01/18 07:26 151/70 95 08/01/18 06:47 146/68 08/01/18 06:15 162/72 08/01/18 05:45 185/86 08/01/18 05:30 217/95 193/92 97 08/01/18 04:00 08/01/18 01:04 118/60 111/59 165/75 08/01/18 00:00 107/52 98 07/31/18 20:00 128/63 97 07/31/18 19:59 149/72 07/31/18 19:00 166/80 99 07/31/18 18:00 209/103 97 07/31/18 15:23 149/86 97 07/31/18 14:00 166/84 98 07/31/18 13:59 166/84 98 Intake and Output 07/31/18 08/01/18 08/01/18 22:59 06:59 14:59 Intake Total 360 Output Total 600 Balance -600 360 Intake: Oral 360 Output: Urine 600 Other: Voiding Method Urinal Urinal # Voids 1 Weight 81.5 kg PHYSICAL EXAMINATION: GENERAL: 87-year-old gentleman in no acute distress at the time of my examination HEENT: Head is atraumatic, normocephalic. Pupils equal, round. Sclera anicteric. Conjunctiva are clear. Mucous membranes of the mouth are moist. Neck is supple. There is no elevated jugular venous pressure. No carotid bruit is heard. HEART EXAMINATION: Heart S1 S2 1 systolic murmur is heard. CHEST EXAMINATION: Lungs are clear to auscultation and precussion. No chest wall tenderness is noted on palpation or with deep breathing. ABDOMEN: Soft, nontender. Bowel sounds are heard. No organomegaly noted. EXTREMITIES: 2+ peripheral pulses with no evidence of peripheral edema and no calf tenderness noted. NEUROLOGIC patient is awake, alert and oriented 3 . . Results 07/31/18 14:30 07/31/18 14:30 Cardiac Enzymes 07/31/18 07/31/18 07/31/18 Range/Units 14:30 14:30 21:02 AST 20 (17-59) U/L Troponin I <0.012 <0.012 (0.000-0.034) ng/mL 08/01/18 Range/Units 00:41 AST (17-59) U/L Troponin I <0.012 (0.000-0.034) ng/mL Lipids 07/31/18 Range/Units 14:30 Triglycerides 105 (<150) mg/dL Cholesterol 187 (<200) mg/dL HDL Cholesterol 32 L (40-60) mg/dL CBC 07/31/18 Range/Units 14:30 WBC 12.7 H (3.8-10.6) k/uL RBC 4.30 (4.30-5.90) m/uL Hgb 14.4 (13.0-17.5) gm/dL Hct 43.0 (39.0-53.0) % Plt Count 290 (150-450) k/uL Comprehensive Metabolic Panel 07/31/18 Range/Units 14:30 Sodium 135 L (137-145) mmol/L Potassium 5.0 (3.5-5.1) mmol/L Chloride 100 (98-107) mmol/L Carbon Dioxide 22 (22-30) mmol/L BUN 26 H (9-20) mg/dL Creatinine 1.67 H (0.66-1.25) mg/dL Glucose 136 H (74-99) mg/dL Calcium 10.0 (8.4-10.2) mg/dL AST 20 (17-59) U/L ALT 27 (21-72) U/L Alkaline Phosphatase 107 (38-126) U/L Total Protein 8.3 H (6.3-8.2) g/dL Albumin 4.7 (3.5-5.0) g/dL Current Medications Generic Name Dose Route Start Last Admin Trade Name Freq PRN Reason Stop Dose Admin Hydrocodone Bitart/Acetaminophen 1 each 08/01/18 00:31 08/01/18 07:01 [place] 5-325 PO 1 each Q6HR PRN Administration Pain Ascorbic Acid 500 mg 08/01/18 09:00 08/01/18 08:34 Vitamin C PO 500 mg DAILY [facility] Administration Aspirin 325 mg 08/01/18 09:00 08/01/18 08:34 Aspirin PO 325 mg DAILY [facility] Administration Aspirin 81 mg 08/01/18 09:00 08/01/18 08:31 Aspirin PO Not Given DAILY [facility] Calcium Carbonate/Glycine 500 mg 08/01/18 01:00 Tums PO TID PRN GI Upset Enoxaparin Sodium 40 mg 08/01/18 09:00 08/01/18 08:34 Lovenox SQ 40 mg DAILY [facility] Administration Hydralazine HCl 10 mg 07/31/18 18:50 08/01/18 05:53 Apresoline IVP 10 mg Q6HR PRN Administration Blood Pressure - High Ibuprofen 600 mg 08/01/18 00:30 Motrin PO BID PRN Pain Isosorbide Mononitrate 30 mg 08/01/18 09:00 08/01/18 08:34 Imdur PO 30 mg DAILY [facility] Administration Midodrine 5 mg 08/01/18 09:00 08/01/18 08:31 Proamatine PO Not Given BID [facility] Morphine Sulfate 4 mg 07/31/18 19:38 08/01/18 00:48 Morphine Sulfate (Inj) IVP 4 mg Q4HR PRN Administration Pain Multivitamins 1 each 08/01/18 12:00 Theragran PO DAILY@1200 [facility] Nitroglycerin 0.4 mg 07/31/18 18:49 Nitrostat SUBLINGUAL Q5M PRN Chest Pain Ondansetron HCl 4 mg 07/31/18 22:07 Zofran IVP Q6HR PRN Nausea And Vomiting Pantoprazole Sodium 40 mg 08/01/18 07:30 08/01/18 05:59 Protonix PO 40 mg AC-BRKFST [facility] Administration Polyethylene Glycol 17 gm 08/01/18 09:00 08/01/18 08:34 Miralax PO 17 gm DAILY [facility] Administration Tamsulosin HCl 0.4 mg 07/31/18 22:15 08/01/18 08:34 Flomax PO 0.4 mg BID [facility] Administration Zinc Sulfate 220 mg 08/01/18 09:00 08/01/18 08:34 Orazinc PO 220 mg DAILY [facility] Administration Intake and Output 07/31/18 08/01/18 08/01/18 22:59 06:59 14:59 Intake Total 360 Output Total 600 Balance -600 360 Intake: Oral 360 Output: Urine 600 Other: Voiding Method Urinal Urinal # Voids 1 Weight 81.5 kg 07/31/18 14:30 07/31/18 14:30 EKG Interpretations (text) EKG shows a normal sinus rhythm with first-degree AV block and right bundle branch block pattern Assessment and Plan Plan: Assessment and plan #1 symptoms of dizziness and weakness with near syncope. Patient does have a history of prior syncopal episodes in the past, underwent implantation of permanent pacemaker in February of last year. He also takes Florinef and midodrine for orthostatic hypotension. #2 hypertension, accelerated #3 hyperlipidemia #4 history of nicotine dependence #5 EtOH use #6 prior TIA #7 chronic neck pain Plan We will obtain an echocardiogram with Doppler study. We will also hydrate the patient at 75 mL per hour. Obtain orthostatic heart rate and blood pressure every shift. We will also interrogate the patient's pacemaker. Further recommendations to follow. DNP note has been reviewed, I agree with a documented findings and plan of care. Patient was seen and examined.
[2018-08-01] MEDS ORDERED: SODIUM CHLORIDE 0.9% 1,000 ML IV SCH (09:15)
--- NOTE | 2018-08-01 11:32 | US ---
EXAMINATION TYPE: US carotid duplex BILAT DATE OF EXAM: 08/01/2018 COMPARISON: 05/03/2017 CLINICAL HISTORY: weakness. bilateral arm and leg weakness EXAM MEASUREMENTS: RIGHT: Peak Systolic Velocity (PSV) cm/sec ----- Right CCA: 95.3 ----- Right ICA: 92.7 ----- Right ECA: 166.4 mid ICA/CCA ratio: 1.0 RIGHT: End Diastole cm/sec ----- Right CCA: 16.9 ----- Right ICA: 16.3 ----- Right ECA: 17.7 LEFT: Peak Systolic Velocity (PSV) cm/sec ----- Left CCA: 94.7 ----- Left ICA: 95.3 ----- Left ECA: 102.6 ICA/CCA ratio: 1.0 LEFT: End Diastole cm/sec ----- Left CCA: 18.7 ----- Left ICA: 18.9 ----- Left ECA: 0.0 VERTEBRALS (direction of flow): Right Vertebral: Antegrade Left Vertebral: Antegrade Rhythm: Normal Bilateral ICA irregular wall changes are noted, but PSV is wnl. Elevated Right ECA PSV is noted in t ortuous portion of lumen. IMPRESSION: 1. Bilateral irregular atherosclerotic changes with no definite significant hemodynamic stenosis. Criteria for Assigning % of Stenosis / Diameter reduction (Estimation based on the indirect measurements of the internal carotid artery velocities (ICA PSV). 1. Normal (no stenosis)=ICA PSV < 125 cm/s: ratio < 2.0: ICA EDV<40 cm/s. 2. Less than 50% stenosis=ICA PSV < 125 cm/s: ratio < 2.0: ICA EDV<40 cm/s. 3. 50 to 69% stenosis=ICA PSV of 125 to 230 cm/s: ration 2.0 ? 4.0: ICA EDV 40-100 cm/s. 4. Greater than 70% stenosis to near occlusion= ICA PSV > 230 cm/s: ratio > 4.0: ICA EDV > 100 cm/s. 5. Near occlusion= ICA PSV velocities may be low or undetectable: variable ratio and ICA EDV. 6. Total occlusion=unable to detect flow.
[2018-08-01] MEDS: MULTIVITAMINS, THERA 1 EACH TAB PO SCH (11:58)
[2018-08-01] MEDS: MIDODRINE 5 MG TAB PO SCH ×2 (11:58→17:24)
[2018-08-01] MEDS: SODIUM CHLORIDE 0.9% 1,000 ML IV SCH (23:20)
--- NOTE | 2018-08-02 05:05 | PN ---
PROGRESS NOTE DATE OF SERVICE: 08/01/2018 PRESENTING COMPLAINT: Tired. INTERVAL HISTORY: Patient admitted with dizziness, lethargic. He has extensive medical history, feels a bit tired, did tolerate some diet. Lying in bed. REVIEW OF SYSTEMS: For constitutional, cardiovascular, GI, pulmonary; relevant findings as above. CURRENT MEDICATIONS: Reviewed that include hydralazine, midodrine, normal saline. PHYSICAL EXAMINATION: VITAL SIGNS: Temperature 97.8, pulse 75, respiration 16, blood pressure 126/64, pulse ox 96% on room air. Earlier today, the patient was orthostatic with a lying blood pressure of 117/82, and standing blood pressure 108/57. GENERAL APPEARANCE: Lying in bed, awake. EYES: Pupils equal. Conjunctivae normal. NECK: JVD not raised. Mass not palpable. Respiratory effort normal. LUNGS: Clear. CARDIOVASCULAR: 1st and 2nd sounds normal, no edema. ABDOMEN: Soft, nontender. Liver and spleen not palpable. PSYCHIATRY: Awake, answering questions. INVESTIGATIONS: No blood work from today. ASSESSMENT: 1. Orthostatic hypotension, known autonomic dysfunction. 2. Gastroesophageal reflux disease. 3. Essential hypertension. 4. Primary osteoarthritis. 5. Benign prostatic hypertrophy. 6. Esophageal stricture with history of dilatations. 7. 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 8. Acute renal failure, explaining patient's orthostasis. Creatinine has gone from 1.12 to 1.67. PLAN: Continue current medication and treatment plan. Check labs in the morning. Patient also getting normal saline that was started today. Also add to Acute renal failure, explaining patient's orthostasis. MMCRISTÓBALL / IJN: [id number] /
[2018-08-02] MEDS: MIDODRINE 5 MG TAB PO SCH ×2 (06:52→14:39)
[2018-08-02] MEDS: PANTOPRAZOLE 40 MG TABLET PO SCH (06:52)
--- NOTE | 2018-08-02 07:23 | P.GSCN ---
History of Present Illness Consult date: 08/01/18 History of present illness: The patieent is 87 He is in the hospital with dizziness and weakness He has been of flomax for years. He has had problems with postoperative urinary retention. He was seen by a urologist in [place]. He was complaining a little more at nighttime urination and therefore his Flomax was increased to twice daily. His dizziness worsened since the twice a day. He had some mild dizziness prior to this. He gets up every couple of hours at night. His flow is adequate. He denies incontinence hematuria or infection. Dr Olivo was asked to evaluate for the dizziness and the use of the flomax. He apparently had a postvoid residual 345 mL this morning Review of Systems - Constitutional Reports as per HPI - Genitourinary Reports as per HPI Past Medical History Past Medical History: Asthma, Cancer, CVA/TIA, Dementia, GERD/Reflux, Hypertension, Osteoarthritis (OA), Prostate Disorder Additional Past Medical History / Comment(s): See Dr Flores's H&P, BPH, asthma as a young man, seasonal sinus problems, doudenal ulcer years ago, esophageal stricture and has had dilations, skin cancer removal, cervical arthritis, beginnings of dementia, occas. dizziness History of Any Multi-Drug Resistant Organisms: None Reported Past Surgical History: Orthopedic Surgery Additional Past Surgical History / Comment(s): EGD with dilation, colonoscopy, hemorrhoidectomies, bilateral cataract removals with lens implants, skin cancer removal, R shoulder tendon repair after injury. Past Anesthesia/Blood Transfusion Reactions: No Reported Reaction Past Psychological History: No Psychological Hx Reported Additional Psychological History / Comment(s): Pt resides with his spouse. He drives if he is feeling good. He uses no assistive device. He retired from the [employer]. His is very ill with lung problems and they are looking to place her in hospice. Spouse has home care, pt also assists with her care. Pt wants something set up so his children have access to his medical information, [facility]. Smoking Status: Former smoker Past Alcohol Use History: Daily Additional Past Alcohol Use History / Comment(s): Pt started smoking in 1948 and quit in 1980. He drinks one glass of wine daily . Past Drug Use History: None Reported - Past Family History Father Family Medical History: Myocardial Infarction (ND) Additional Family Medical History / Comment(s): Father of a ND at the age of 76yrs. Mother Family Medical History: No Reported History Additional Family Medical History / Comment(s): Mother lived to be 94 yrs old. Medications and Allergies Home Medications Medication Instructions Recorded Confirmed Type Aspirin EC [Ecotrin Low Dose] 81 mg PO DAILY 04/18/14 07/31/18 History Tamsulosin HCl [Flomax] 0.4 mg PO BID 09/20/17 07/31/18 History Midodrine [ProAmatine] 5 mg PO BID 02/10/18 07/31/18 History Ascorbic Acid [Vitamin C] 500 mg PO DAILY 07/12/18 07/31/18 History Metoprolol Succinate (ER) [Toprol 12.5 mg PO DAILY 07/12/18 07/31/18 History Xl] Multivitamins, Thera [Multivitamin 1 tab PO DAILY 07/12/18 07/31/18 History (formulary)] Zinc 50 mg PO DAILY 07/12/18 07/31/18 History Calcium Carbonate [Tums] 500 mg PO TID PRN 07/31/18 07/31/18 History Ibuprofen [Motrin] 600 mg PO BID PRN 07/31/18 07/31/18 History Isosorbide Mononitrate ER [Imdur] 30 mg PO DAILY 07/31/18 07/31/18 History Tumeric (Unknown) 1 tab PO HS 07/31/18 07/31/18 History Allergies Allergy/AdvReac Type Severity Reaction Status Date / Time latex Allergy Rash/Hives Verified 07/31/18 14:44 nickel [Nickel] Allergy Rash/Hives Verified 07/31/18 14:44 Penicillins Allergy Rash/Hives Verified 07/31/18 14:44 chrome Allergy Rash/Hives Uncoded 07/12/18 21:46 Surgical - Exam Vital Signs Temp Pulse Resp BP Pulse Ox 97.9 F 77 16 166/84 98 07/31/18 13:59 07/31/18 13:59 07/31/18 13:59 07/31/18 13:59 07/31/18 13:59 - General well developed, well nourished, no distress - Eyes PERRL - ENT no hearing loss - Neck trachea midline - Respiratory normal expansion, normal respiratory effort - Cardiovascular Rhythm: regular - Abdomen Abdomen: soft, non tender - Genitourinary The prostate is 30 g benign normal penis with no external lesions, testicles present - Rectum Rectum: normal sphincter tone - Integumentary no rash, no growths - Neurologic combative - Musculoskeletal normal gait, normal posture - Psychiatric oriented to time, oriented to person, oriented to place, speech is normal, memory intact Results - Labs 07/31/18 14:30 07/31/18 14:30 Abnormal Lab Results - Last 24 Hours (Table) 07/31/18 08/01/18 Range/Units 14:30 00:57 LDL Cholesterol, Calc 134 H (0-99) mg/dL HDL Cholesterol 32 L (40-60) mg/dL Urine Ketones Trace H (Negative) Diabetes panel 07/31/18 Range/Units 14:30 Triglycerides 105 (<150) mg/dL HDL Cholesterol 32 L (40-60) mg/dL Assessment and Plan Assessment: Impression: syncope with dizziness Flomax for bph. Multiple cardiac issues Plan; THe patients dizziness is aggravated by his Flomax. The real question is as how well he voided off the Flomax. His first postvoid residual is moderately large at 345 mL. Recommending continuing with residuals to see how he does. If he struggles to urinate or cannot urinate then TURP down the road may be indicated as it appears that the Flomax is going to be intolerable given his overall general cardiac and vascular system. We'll follow this patient with you.
[2018-08-02] MEDS: ASCORBIC ACID 500 MG TAB PO SCH (08:13)
[2018-08-02] MEDS: ZINC SULFATE 220 MG CAP PO SCH (08:13)
[2018-08-02] MEDS: ENOXAPARIN 40 MG/0.4 ML SYRINGE SQ SCH (08:13)
[2018-08-02] MEDS: POLYETHYLENE GLYCOL 3350 17 GM POWD.PACK PO SCH (08:13)
[2018-08-02] MEDS: ASPIRIN 81 MG PO SCH (08:13)
[2018-08-02] MEDS: SODIUM CHLORIDE 0.9% 1,000 ML IV SCH ×2 (08:13→17:43)
[2018-08-02 08:15] LABS: Basophils # (A) 0.1 k/uL (0-0.2); Basophils % (A) 1 %; Eosinophils # (A) 0.2 k/uL (0-0.7); Eosinophils % (A) 2 %; HCT 40.4 % (39.0-53.0); HGB 13.4 gm/dL (13.0-17.5); Lymphocytes # (A) 1.6 k/uL (1.0-4.8); Lymphocytes % (A) 20 %; MCHC 33.1 g/dL (31.0-37.0); MCV 99.6 fL (80.0-100.0); Mean Platelet Volume 6.9; Monocytes # (A) 0.5 k/uL (0-1.0); Monocytes % (A) 6 %; Neutrophils # (A) 5.5 k/uL (1.3-7.7); Neutrophils % (A) 69 %; Platelet Count 272 k/uL (150-450); RBC 4.06 m/uL (4.30-5.90); RDW 12.9 % (11.5-15.5)
[2018-08-02 08:26] LABS: Calcium 9.4 mg/dL (8.4-10.2); Potassium 4.8 mmol/L (3.5-5.1)
--- NOTE | 2018-08-02 10:59 | ECHOF ---
Referral Reason:weakness MEASUREMENTS -------- HEIGHT: 175.3 cm WEIGHT: 81.6 kg BP: RVIDd: 2.6 cm (< 3.3) IVSd: 1.2 cm (0.6 - 1.1) LVIDd: 3.7 cm (3.9 - 5.3) LVPWd: 1.3 cm (0.6 - 1.1) IVSs: 1.8 cm LVIDs: 1.5 cm LVPWs: 1.8 cm LAESV Index (A-L): 38.85 ml/m Ao Diam: 3.3 cm (2.0 - 3.7) AV Cusp: 2.0 cm (1.5 - 2.6) LA Diam: 3.9 cm (2.7 - 3.8) EPSS: 0.5 cm MV E Max: 0.68 m/s MV DecT: 374 ms MV A Max: 0.99 m/s MV E/A Ratio: 0.69 RAP: 5.00 mmHg RVSP: 23.26 mmHg MV EF SLOPE: 71.54 mm/s (70 - 150) MV EXCURSION: 1.76 cm (> 18.000) FINDINGS -------- Undetermined rhythm. This was a technically adequate study. The left ventricular size is normal. There is mild concentric left ventricular hypertrophy. Overa ll left ventricular systolic function is normal with, an EF between 55 - 60 %. The right ventricle is normal in size and function. LA is moderately dilated 34-39 ml/m2 The right atrium is normal in size. Electronic pacemaker lead seen in the right ventricular cavity. RA appears enlarged. Aortic valve is trileaflet and is mildly thickened. There is no evidence of aortic regurgitation. There is no evidence of aortic stenosis. The mitral valve leaflets are mildly thickened. There is trace to mild mitral regurgitation. Mild tricuspid regurgitation present. Right ventricular systolic pressure is normal at < 35 mmHg. There is no evidence of pulmonary hypertension. Trace/mild (physiologic) pulmonic regurgitation. The aortic root size is normal. IVC Not well visulized. There is no pericardial effusion. CONCLUSIONS -------- 1. Undetermined rhythm. 2. This was a technically adequate study. 3. The left ventricular size is normal. 4. There is mild concentric left ventricular hypertrophy. 5. Overall left ventricular systolic function is normal with, an EF between 55 - 60 %. 6. LA is moderately dilated 34-39 ml/m2 7. RA appears enlarged. 8. Aortic valve is trileaflet and is mildly thickened. 9. The mitral valve leaflets are mildly thickened. 10. There is trace to mild mitral regurgitation. 11. Mild tricuspid regurgitation present. 12. Right ventricular systolic pressure is normal at < 35 mmHg. 13. There is no evidence of pulmonary hypertension. 14. Trace/mild (physiologic) pulmonic regurgitation. 15. The aortic root size is normal. 16. IVC Not well visulized. 17. There is no pericardial effusion. MANAGER EDITORIAL: Buster Samson RDCS
[2018-08-02] MEDS: MULTIVITAMINS, THERA 1 EACH TAB PO SCH (11:19)
--- NOTE | 2018-08-02 13:56 | P.PN ---
Subjective Progress Note Date: 08/02/18 This is an 87-year-old gentleman who follows with Dr. Call in the office. He has a known history of hypertension, hyperlipidemia, has had prior cardiac catheterization in 2012 which did not reveal any significant obstructive coronary artery disease. He has had a prior symptoms of syncope, a 24-hour Holter monitor was performed which had revealed multiple episodes of second-degree heart block. For this reason patient underwent implantation of a permanent pacemaker in February of last year by Dr. Flores. Patient also has history of prior smoking and also daily alcohol use. He presents to the hospital on this occasion with symptoms of dizziness and near syncope. Patient also has some chronic neck pain which she felt was contributing to this. According to the patient, when he wakes up in the morning he is very dizzy and lightheaded, his legs and arms are extremely weak. It takes him a couple hours to get the strength to stand up. He also states when he checks his blood pressure in the morning at home it is usually quite low. A CAT scan of the brain was performed on arrival here which revealed chronic appearing white matter changes. Chest x-ray did not reveal any acute pulmonary process. EKG shows a normal sinus rhythm with first-degree AV block and a right bundle branch block pattern. Blood pressure on arrival here 166/84 with a heart rate in the 70s, 98% on room air, his blood pressure did go up to 217/90, this morning's blood pressure 150/70 with a heart rate in the 70s, 95% on room air. The patient had been taking Florinef and midodrine at home as prescribed by Dr. Call. White blood cell count on arrival here 12.7, hemoglobin 14.4, platelet count 290. Sodium 135, potassium 5.0, BUN 26 and creatinine 1.6. Cholesterol 187, LDL 134, HDL 32, TSH 5.0 and free T4 1 0.3, troponins are negative 3. At the time of my examination this morning, patient complains of neck pain, he does have some mild dizziness and lightheadedness. O2 2018 Patient was seen and examined this morning, his dose of midodrine yesterday was increased to 3 times a day by Dr. Pinto. This morning at 4:30 AM, his blood pressure lying was 162/70, sitting 95/50 and standing 80/40. Around noontime today the blood pressure was checked came back to be 224/108 lying, 192/88 sitting and 192/88 standing. Just after this the patient did get up to the bathroom, after returning back to bed again the blood pressure was drawn which came back to be 120/80. Patient denies any dizziness or lightheadedness, today overall feels significantly better. Echocardiogram with Doppler study revealed a normal left ventricular systolic function. Objective - Vital Signs Vital signs: Vital Signs Temp 97.6 F 08/02/18 11:39 Pulse 67 08/02/18 11:39 Resp 16 08/02/18 11:39 BP 224/108 08/02/18 11:39 Pulse Ox 97 08/02/18 11:39 Intake & Output 08/01/18 08/02/18 08/02/18 18:59 06:59 18:59 Intake Total 1065 1425 480 Output Total 1115 700 Balance 1065 310 -220 Weight 82.9 kg Intake: IV 225 Sodium Chloride 0.9% 1, 225 000 ml @ 75 mls/hr IV . [id number] [facility] Rx#:[id number] Intake, IV Titration 225 1200 Amount Sodium Chloride 0.9% 1, 1200 000 ml @ 100 mls/hr IV . Q10H [facility] Rx#:[id number] Sodium Chloride 0.9% 1, 225 000 ml @ 75 mls/hr IV . [id number] [facility] Rx#:[id number] Oral 840 480 Output: Urine 775 700 Post Void Residual 340 Other: Voiding Method Toilet Urinal # Voids 1 1 - Exam PHYSICAL EXAMINATION: GENERAL: 87-year-old gentleman in no acute distress at the time of my examination HEENT: Head is atraumatic, normocephalic. Pupils equal, round. Sclera anicteric. Conjunctiva are clear. Mucous membranes of the mouth are moist. Neck is supple. There is no elevated jugular venous pressure. No carotid bruit is heard. HEART EXAMINATION: Heart S1 S2 1 systolic murmur is heard. CHEST EXAMINATION: Lungs are clear to auscultation and precussion. No chest wall tenderness is noted on palpation or with deep breathing. ABDOMEN: Soft, nontender. Bowel sounds are heard. No organomegaly noted. EXTREMITIES: 2+ peripheral pulses with no evidence of peripheral edema and no calf tenderness noted. NEUROLOGIC patient is awake, alert and oriented 3 . . - Labs CBC & Chem 7: 08/02/18 07:09 08/02/18 07:09 Labs: Abnormal Lab Results - Last 24 Hours (Table) 08/02/18 08/02/18 Range/Units 07:09 07:09 RBC 4.06 L (4.30-5.90) m/uL BUN 22 H (9-20) mg/dL Creatinine 1.29 H (0.66-1.25) mg/dL Assessment and Plan Plan: Assessment and plan #1 symptoms of dizziness and weakness with near syncope. Patient does have a history of prior syncopal episodes in the past, underwent implantation of permanent pacemaker in February of last year. He also takes Florinef and midodrine for orthostatic hypotension. #2 hypertension, accelerated #3 hyperlipidemia #4 history of nicotine dependence #5 EtOH use #6 prior TIA #7 chronic neck pain Plan Echo cardiac gram with Doppler study revealed a normal left ventricular systolic function. At this point in time we will continue with the midodrine 10 mg by mouth 3 times a day him a continue to monitor orthostatics. DNP note has been reviewed, I agree with a documented findings and plan of care. Patient was seen and examined.
[2018-08-02] MEDS ORDERED: MIDODRINE 5 MG TAB PO SCH (17:30)
[2018-08-02] MEDS ORDERED: METOPROLOL TARTRATE 12.5 MG TAB PO SCH (21:30)
--- NOTE | 2018-08-02 22:11 | PN ---
PROGRESS NOTE DATE OF SERVICE: 08/02/2018 PRESENTING COMPLAINT: Tired. INTERVAL HISTORY: Patient admitted with dizziness, lethargic, was found to be in acute renal failure. Creatinine is coming down with IV fluids. Blood pressure is running on the higher side. Also Flomax was held. Overall feeling better. Has been up to the bathroom. REVIEW OF SYSTEMS: Done for constitutional, cardiovascular, GI, pulmonary; relevant findings as above. CURRENT MEDICATIONS: Reviewed. They include IV fluids, midodrine. PHYSICAL EXAMINATION: Temperature 97.8, pulse 69, respiration 16, blood pressure 208/100, pulse ox 98% on room air. GENERAL APPEARANCE: Lying in bed, more awake. EYES: Pupils equal. Conjunctivae normal. NECK: JVD not raised. Mass not palpable. RESPIRATORY: Effort normal. Lungs are clear. CARDIOVASCULAR: First and second sounds normal. No edema. ABDOMEN: Soft, non-tender. Liver and spleen not palpable. PSYCHIATRY: Alert and oriented x3. Mood and affect normal. INVESTIGATIONS: White count 8, hemoglobin 13.4, BUN 22, creatinine 1.29. ASSESSMENT: 1. Orthostatic hypotension and known autonomic dysfunction, also contributed by acute renal failure. 2. Gastroesophageal reflux disease. 3. Essential hypertension. 4. Primary osteoarthritis. 5. Benign prostatic hypertrophy. 6. Esophageal stricture with history of dilatation. 7. 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 8. Acute renal failure, prerenal. PLAN: Will discontinue patient's saline early tomorrow morning. Will hold off patient's midodrine in the morning until further evaluation by Cardiology, as the blood pressure is running quite high, to see if it still needs to be given. Will follow. MMODL / IJN: [id number] /
[2018-08-03] MEDS: SODIUM CHLORIDE 0.9% 1,000 ML IV SCH (06:34)
[2018-08-03] MEDS: PANTOPRAZOLE 40 MG TABLET PO SCH (06:34)
[2018-08-03 07:22] LABS: Basophils # (A) 0.1 k/uL (0-0.2); Basophils % (A) 1 %; Eosinophils # (A) 0.3 k/uL (0-0.7); Eosinophils % (A) 3 %; HCT 42.8 % (39.0-53.0); HGB 14.3 gm/dL (13.0-17.5); Lymphocytes # (A) 1.8 k/uL (1.0-4.8); Lymphocytes % (A) 18 %; MCH 33.3 pg (25.0-35.0); MCHC 33.5 g/dL (31.0-37.0); MCV 99.4 fL (80.0-100.0); Mean Platelet Volume 6.6; Monocytes # (A) 0.7 k/uL (0-1.0); Monocytes % (A) 7 %; Neutrophils # (A) 6.8 k/uL (1.3-7.7); Neutrophils % (A) 69 %; Platelet Count 285 k/uL (150-450); RBC 4.31 m/uL (4.30-5.90); RDW 12.9 % (11.5-15.5); WBC 9.8 k/uL (3.8-10.6)
[2018-08-03 07:33] LABS: Calcium 9.6 mg/dL (8.4-10.2); Potassium 4.7 mmol/L (3.5-5.1)
[2018-08-03] MEDS ORDERED: MIDODRINE 5 MG TAB PO SCH ×2 (08:30→12:30)
[2018-08-03] MEDS: POLYETHYLENE GLYCOL 3350 17 GM POWD.PACK PO SCH (08:40)
[2018-08-03] MEDS: ASCORBIC ACID 500 MG TAB PO SCH (08:40)
[2018-08-03] MEDS: ASPIRIN 81 MG PO SCH (08:40)
[2018-08-03] MEDS: ENOXAPARIN 40 MG/0.4 ML SYRINGE SQ SCH (08:40)
[2018-08-03] MEDS: ZINC SULFATE 220 MG CAP PO SCH (08:42)
[2018-08-03] MEDS: MULTIVITAMINS, THERA 1 EACH TAB PO SCH (12:08)
--- NOTE | 2018-08-03 12:15 | P.PN ---
Subjective Progress Note Date: 08/03/18 The patient's Flomax was stopped due to dizziness. His first urine residuals 340. His repeat residual this morning was 151. We'll keep him off Flomax for now. Objective - Vital Signs Vital signs: Vital Signs Temp 97.8 F 08/03/18 11:31 Pulse 70 08/03/18 11:31 Resp 20 08/03/18 11:31 BP 231/112 08/03/18 11:31 Pulse Ox 98 08/03/18 11:31 Intake & Output 08/02/18 08/03/18 08/03/18 18:59 06:59 18:59 Intake Total 720 240 Output Total 2200 2175 151 Balance -1480 -2175 89 Weight 81.8 kg Intake: Oral 720 240 Output: Urine 2200 2175 Post Void Residual 151 Other: Voiding Method Toilet Urinal # Voids 1 - Labs CBC & Chem 7: 08/03/18 07:01 08/03/18 07:01 Labs: Abnormal Lab Results - Last 24 Hours (Table) 08/03/18 Range/Units 07:01 Chloride 108 H (98-107) mmol/L
[2018-08-03] MEDS: amLODIPine 5 MG TAB PO SCH (18:12)
[2018-08-03] MEDS: MIDODRINE 5 MG TAB PO SCH (18:14)
[2018-08-04] MEDS: MIDODRINE 5 MG TAB PO SCH ×2 (05:40→13:01)
[2018-08-04 06:52] LABS: Basophils # (A) 0.1 k/uL (0-0.2); Basophils % (A) 1 %; Eosinophils # (A) 0.4 k/uL (0-0.7); Eosinophils % (A) 5 %; HCT 43.4 % (39.0-53.0); HGB 14.2 gm/dL (13.0-17.5); Lymphocytes # (A) 1.5 k/uL (1.0-4.8); Lymphocytes % (A) 17 %; MCH 32.9 pg (25.0-35.0); MCHC 32.7 g/dL (31.0-37.0); MCV 100.6 fL (80.0-100.0); Monocytes # (A) 0.6 k/uL (0-1.0); Monocytes % (A) 7 %; Neutrophils # (A) 5.8 k/uL (1.3-7.7); Neutrophils % (A) 68 %; Platelet Count 302 k/uL (150-450); RBC 4.31 m/uL (4.30-5.90); RDW 12.8 % (11.5-15.5); WBC 8.5 k/uL (3.8-10.6)
[2018-08-04] MEDS: PANTOPRAZOLE 40 MG TABLET PO SCH (06:59)
[2018-08-04 07:06] LABS: Calcium 9.9 mg/dL (8.4-10.2); Potassium 4.6 mmol/L (3.5-5.1)
[2018-08-04] MEDS: POLYETHYLENE GLYCOL 3350 17 GM POWD.PACK PO SCH (10:00)
[2018-08-04] MEDS: ASCORBIC ACID 500 MG TAB PO SCH (10:01)
[2018-08-04] MEDS: ZINC SULFATE 220 MG CAP PO SCH (10:01)
[2018-08-04] MEDS: ASPIRIN 81 MG PO SCH (10:01)
[2018-08-04] MEDS: ENOXAPARIN 40 MG/0.4 ML SYRINGE SQ SCH (10:05)
[2018-08-04] MEDS: MULTIVITAMINS, THERA 1 EACH TAB PO SCH (13:02)
[2018-08-04] MEDS: amLODIPine 5 MG TAB PO SCH (13:12)
[2018-08-04 14:45] VITALS: RESP 18
--- NOTE | 2018-08-04 15:37 | P.PN ---
Subjective Progress Note Date: 08/04/18 This is an 87-year-old gentleman who follows with Dr. Call in the office. He has a known history of hypertension, hyperlipidemia, has had prior cardiac catheterization in 2012 which did not reveal any significant obstructive coronary artery disease. He has had a prior symptoms of syncope, a 24-hour Holter monitor was performed which had revealed multiple episodes of second-degree heart block. For this reason patient underwent implantation of a permanent pacemaker in February of last year by Dr. Flores. Patient also has history of prior smoking and also daily alcohol use. He presents to the hospital on this occasion with symptoms of dizziness and near syncope. Patient also has some chronic neck pain which she felt was contributing to this. According to the patient, when he wakes up in the morning he is very dizzy and lightheaded, his legs and arms are extremely weak. It takes him a couple hours to get the strength to stand up. He also states when he checks his blood pressure in the morning at home it is usually quite low. A CAT scan of the brain was performed on arrival here which revealed chronic appearing white matter changes. Chest x-ray did not reveal any acute pulmonary process. EKG shows a normal sinus rhythm with first-degree AV block and a right bundle branch block pattern. Blood pressure on arrival here 166/84 with a heart rate in the 70s, 98% on room air, his blood pressure did go up to 217/90, this morning's blood pressure 150/70 with a heart rate in the 70s, 95% on room air. The patient had been taking Florinef and midodrine at home as prescribed by Dr. Call. White blood cell count on arrival here 12.7, hemoglobin 14.4, platelet count 290. Sodium 135, potassium 5.0, BUN 26 and creatinine 1.6. Cholesterol 187, LDL 134, HDL 32, TSH 5.0 and free T4 1 0.3, troponins are negative 3. At the time of my examination this morning, patient complains of neck pain, he does have some mild dizziness and lightheadedness. O2 2018 Patient was seen and examined this morning, his dose of midodrine yesterday was increased to 3 times a day by Dr. Pinto. This morning at 4:30 AM, his blood pressure lying was 162/70, sitting 95/50 and standing 80/40. Around noontime today the blood pressure was checked came back to be 224/108 lying, 192/88 sitting and 192/88 standing. Just after this the patient did get up to the bathroom, after returning back to bed again the blood pressure was drawn which came back to be 120/80. Patient denies any dizziness or lightheadedness, today overall feels significantly better. Echocardiogram with Doppler study revealed a normal left ventricular systolic function. 2018 Patient seen and examined this morning, overall feeling better. Denies any dizziness or lightheadedness. A small dose of Norvasc was added to his medication regime to be given in the afternoon. We will give the patient midodrine, but decreased to a once daily dose and give one hour before the patient rises in the morning. Objective - Vital Signs Vital signs: Vital Signs Temp 98.4 F 08/04/18 12:00 Pulse 73 08/04/18 12:00 Resp 18 08/04/18 12:00 BP 139/72 08/04/18 12:00 Pulse Ox 96 08/04/18 12:00 Intake & Output 08/03/18 08/04/18 08/04/18 18:59 06:59 18:59 Intake Total 840 480 480 Output Total 1451 800 Balance -611 480 -320 Weight 81.3 kg Intake: Oral 840 480 480 Output: Urine 1300 800 Post Void Residual 151 Other: Voiding Method Toilet Urinal # Voids 3 - Exam PHYSICAL EXAMINATION: GENERAL: 87-year-old gentleman in no acute distress at the time of my examination HEENT: Head is atraumatic, normocephalic. Pupils equal, round. Sclera anicteric. Conjunctiva are clear. Mucous membranes of the mouth are moist. Neck is supple. There is no elevated jugular venous pressure. No carotid bruit is heard. HEART EXAMINATION: Heart S1 S2 1 systolic murmur is heard. CHEST EXAMINATION: Lungs are clear to auscultation and precussion. No chest wall tenderness is noted on palpation or with deep breathing. ABDOMEN: Soft, nontender. Bowel sounds are heard. No organomegaly noted. EXTREMITIES: 2+ peripheral pulses with no evidence of peripheral edema and no calf tenderness noted. NEUROLOGIC patient is awake, alert and oriented 3 . . - Labs CBC & Chem 7: 08/04/18 06:40 08/04/18 06:40 Labs: Abnormal Lab Results - Last 24 Hours (Table) 08/04/18 08/04/18 Range/Units 06:40 06:40 MCV 100.6 H (80.0-100.0) fL Glucose 117 H (74-99) mg/dL Assessment and Plan Plan: Assessment and plan #1 symptoms of dizziness and weakness with near syncope. Patient does have a history of prior syncopal episodes in the past, underwent implantation of permanent pacemaker in February of last year. He also takes Florinef and midodrine for orthostatic hypotension. #2 hypertension, accelerated #3 hyperlipidemia #4 history of nicotine dependence #5 EtOH use #6 prior TIA #7 chronic neck pain Plan Norvasc 5 mg daily has been added to the patient's medication regime. We will decrease the midodrine to a once daily dose, to be given in the morning one hour before the patient rises. DNP note has been reviewed, I agree with a documented findings and plan of care. Patient was seen and examined.
[2018-08-04 16:52] VITALS: BP 138/86; PULSE 76; TEMP 97.9
--- NOTE | 2018-08-04 23:28 | PN ---
PROGRESS NOTE DATE OF SURGERY: August 03, 2018. PRESENT COMPLAINT: Tired. INTERVAL HISTORY: Patient was seen by me yesterday. Presented with dizziness, lethargic, found to be in acute renal failure. Today the patient is feeling better. Blood pressure has been running high. The dizziness is less prominent. The patient up in the hallway. No chest pain or palpitation. Oral intake improved. REVIEW OF SYSTEMS: Done for constitutional, cardiovascular, GI, pulmonary and relevant findings as above. CURRENT MEDICATIONS: Reviewed that include midodrine, IV fluids were discontinued earlier. PHYSICAL EXAMINATION: VITAL SIGNS: Temperature 97.8, pulse 72, respiration 20, blood pressure 231/112, pulse ox 98% on room air. GENERAL APPEARANCE: Lying in bed, looking much better. EYES: Pupils equal. Conjunctivae normal. NECK: JVD not raised. Mass not palpable. RESPIRATORY: Effort normal. LUNGS are clear. CARDIOVASCULAR: 1st and 2nd sounds normal. No edema. ABDOMEN: Soft, nontender. Liver and spleen not palpable. PSYCHIATRY: Alert and oriented x3. Mood and affect normal. NEUROLOGICAL: Patient is witnessed walking in the hallway with a walker. INVESTIGATIONS: White count 9.8, potassium 4.7, creatinine 1.25. ASSESSMENT: 1. Orthostatic hypotension with known autonomic dysfunction contributed by acute renal failure. 2. Gastroesophageal reflux disease. 3. Essential hypertension. 4. Primary osteoarthritis. 5. Benign prostatic hypertrophy. 6. Esophageal stricture with history of dilatation. 7. Acute renal failure, prerenal, much improved. 8. 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 PLAN: Discussed the patient's medications at length with the patient and the son. Also discussed with Dr. Scar Pinto from Cardiology. Plan right now is to cut back on the midodrine to 2.5 mg 3 times a day and because the blood pressure is running rather high, will start the patient on Norvasc 5 mg a day and see how he does tomorrow. Total time spent was about 40 minutes with over 25 minutes of discussion. MMODL / IJN: [id number] /
[2018-08-05] MEDS ORDERED: MIDODRINE 5 MG TAB PO SCH (07:00)
--- NOTE | 2018-08-05 09:56 | DS ---
DISCHARGE SUMMARY DATE OF ADMISSION: 07/31/2018 DATE OF DISCHARGE: 08/04/2018 FINAL DIAGNOSES: 1. Orthostatic hypotension with known autonomic dysfunction. 2. Acute renal failure, prerenal. 3. Gastroesophageal reflux disease. 4. Essential hypertension. 5. Primary osteoarthritis. 6. Benign prostatic hypertrophy. 7. Esophageal structure with history of dilatation. 8. 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 CONSULTATION: Dr. Scar Pinto from Cardiology; Dr. Robles from Urology. HOSPITAL COURSE: This patient presented weak, tired, run down, lethargic. The patient was in acute renal failure. Initial creatinine was 1.6 and hydration did come down to 1.25. The patient is significantly orthostatic. The patient's Imdur, Flomax were both discontinued. Medications were adjusted. Today Dr. Scar Pinto wanted the patient to go home on 5 mg of midodrine in the morning, Norvasc is to continue that was started. Beta zoe was discontinued. Overall, patient was feeling much better. Care was discussed with the patient. On examination, temperature 98.4, pulse 73, respiration 18, blood pressure 139/72 pulse ox 96% on room air. LUNGS: Fair entry. CARDIOVASCULAR: First and second sounds normal. DISCHARGE MEDICATIONS: 1. Aspirin 81 mg a day. 2. Vitamin C 500 mg a day. 3. Multivitamin 1 tablet p.o. daily. 4. Zinc 50 mg a day. 5. Tums 500 mg p.o. t.i.d. p.r.n. 6. Turmeric. 7. Midodrine 5 mg p.o. in the morning. 8. MiraLAX 17 grams p.o. daily. 9. Norvasc 5 mg in the morning. Discontinued is Flomax, Toprol-XL, Motrin, and Imdur. Follow up with Dr. Cristo Montoya in 1 week. Follow up with Dr. Lui Call in one week. Follow up with Dr. Robles in 2 weeks. MMODL / IJN: [id number] /
== END 2018-08-04 17:14 | disposition home or self-care (01) | DRG 684 ==
LOC: EC 13:51 → 3SCARD 18:52
PROVIDERS: ADMIT Hospitalist; ATTEND Hospitalist
DX: N17.9 Acute kidney failure, unspecified (principal); E86.0 Dehydration; G90.9 Disorder of the autonomic nervous system, unspecified; I45.10 Unspecified right bundle-branch block; F02.80 Dementia in other diseases classified elsewhere, unspecified severity, without behavioral disturbance, psychotic disturbance, mood disturbance, and anxiety; G30.1 Alzheimer's disease with late onset; E78.5 Hyperlipidemia, unspecified; G89.29 Other chronic pain; I10 Essential (primary) hypertension; I44.0 Atrioventricular block, first degree; I95.1 Orthostatic hypotension; J45.909 Unspecified asthma, uncomplicated; K21.9 Gastro-esophageal reflux disease without esophagitis; M19.91 Primary osteoarthritis, unspecified site; N40.0 Benign prostatic hyperplasia without lower urinary tract symptoms; M54.2 Cervicalgia; Z79.82 Long term (current) use of aspirin; Z79.899 Other long term (current) drug therapy; Z87.891 Personal history of nicotine dependence; Z86.73 Personal history of transient ischemic attack (TIA), and cerebral infarction without residual deficits; Z85.828 Personal history of other malignant neoplasm of skin; Z87.11 Personal history of peptic ulcer disease; Z91.040 Latex allergy status; Z88.0 Allergy status to penicillin; Z91.048 Other nonmedicinal substance allergy status; Z98.42 Cataract extraction status, left eye; Z98.41 Cataract extraction status, right eye; Z96.1 Presence of intraocular lens; Z95.0 Presence of cardiac pacemaker; Z82.49 Family history of ischemic heart disease and other diseases of the circulatory system
CPT/HCPCS: 36415; 70450; 71046; 80048; 80053; 80061; 81003; 83735; 84100; 84439; 84443; 84484; 85025; 93005; 93306; 93880; 94760; 96361; 96374; 96375; 99285

== ENCOUNTER 2018-09-25 18:49 | Inpatient (IN) | payer MEDICARE ==
[2018-09-25 19:21] LABS: Basophils # (A) 0.1 k/uL (0-0.2); Basophils % (A) 1 %; Eosinophils # (A) 0.2 k/uL (0-0.7); Eosinophils % (A) 1 %; HCT 40.5 % (39.0-53.0); HGB 13.7 gm/dL (13.0-17.5); Lymphocytes # (A) 2.1 k/uL (1.0-4.8); Lymphocytes % (A) 18 %; MCH 32.7 pg (25.0-35.0); MCHC 33.8 g/dL (31.0-37.0); MCV 96.8 fL (80.0-100.0); Mean Platelet Volume 6.8; Monocytes # (A) 0.9 k/uL (0-1.0); Monocytes % (A) 8 %; Neutrophils # (A) 8.2 k/uL (1.3-7.7); Neutrophils % (A) 70 %; Platelet Count 375 k/uL (150-450); RBC 4.18 m/uL (4.30-5.90); RDW 13.6 % (11.5-15.5); WBC 11.7 k/uL (3.8-10.6)
[2018-09-25 19:30] LABS: Albumin 4.9 g/dL (3.5-5.0); Calcium 10.3 mg/dL (8.4-10.2); Magnesium 1.7 mg/dL (1.6-2.3); Potassium 4.7 mmol/L (3.5-5.1); Total Protein 8.3 g/dL (6.3-8.2)
--- NOTE | 2018-09-25 19:33 | ED ---
General Adult HPI - General Chief complaint: Shortness of Breath Stated complaint: Lightheaded Time Seen by Provider: 09/25/18 19:01 Source: patient Mode of arrival: wheelchair Limitations: no limitations - History of Present Illness Initial comments: Dictation was produced using [employer] dictation software. please excuse any grammatical, word or spelling errors. Chief Complaint: 87-year-old male presents with multiple complaints. History of Present Illness: His 87-year-old male has multiple comorbidities including asthma cancer, CVA, dementia, hypertension. He is here today for a myriad of complaints. Patient's however primary complaint is shortness of breath. Patient states to be short of breath for the last 2 days. He states that it's worse with exertion. Patient has a history of asthma. Patient secondary complaint is neck pain. 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 He states he gets intermittent hand numbness bilaterally. Patient also complains that he gets poor circulation to his hands intermittently. Patient also reports feeling dizzy. He is been having issues with low blood pressure upon waking. Patient is on multiple medications and has recent adjustments. Continues to have low blood pressure and persistent dizziness that is worse with standing. The ROS documented in this emergency department record has been reviewed and confirmed by me. Those systems with pertinent positive or negative responses have been documented in the HPI. All other systems are other negative and/or noncontributory. PHYSICAL EXAM: General Impression: Alert and oriented x3, not in acute distress HEENT: Normocephalic atraumatic, extra-ocular movements intact, pupils equal and reactive to light bilaterally, mucous membranes moist. Cardiovascular: Heart regular rate and rhythm, S1&S2 audible, no murmurs, rubs or gallops Chest: Lungs clear to auscultation bilaterally, no rhonchi, no wheeze, no rales Abdomen: Bowel sounds present, abdomen soft, non-tender, non-distended, no or ganomegaly Musculoskeletal: Pulses present and equal in all extremities, no peripheral edema Motor: no focal deficits noted Neurological: CN II-XII grossly intact, no focal motor or sensory deficits noted Skin: Intact with no visualized rashes Psych: Normal affect and mood ED course: 87-year-old male with multiple complaints. Vital signs upon arrival shows blood pressure 192/80, worse vital signs within acceptable limits. Patient is well-appearing at this time. Physical examination is benign. Laboratory evaluation obtained. Mild leukocytosis 11.7 with a secondary to stress. Rest of CBC unremarkable. Coag panel unremarkable. Metabolic panel shows mild anion gap acidosis. She appears dehydrated. Patient also has findings of acute kidney injury cranial 2.0. Patient given intravenous fluids gently. Cardiac enzymes negative. Patient's clinical presentation consistent with symptomatic dehydration with acute kidney injury. Patient given intravenous fluids. Patient given [place] for his neck pain. Patient be admitted. Patient case discussed with Dr. Canseco EKG interpretation: Ventricular rate 79, sinus rhythm, right bundle branch block, AL interval 26, QS 1:30, QTc 460. Compared to EKG from July 31 with no changes.. Overall, this EKG is unremarkable - Related Data Home Medications Medication Instructions Recorded Confirmed Aspirin EC [Ecotrin Low Dose] 81 mg PO DAILY 04/18/14 07/31/18 Ascorbic Acid [Vitamin C] 500 mg PO DAILY 07/12/18 09/25/18 Multivitamins, Thera [Multivitamin 1 tab PO DAILY 07/12/18 09/25/18 (formulary)] Zinc 50 mg PO DAILY 07/12/18 09/25/18 Calcium Carbonate [Tums] 500 mg PO TID PRN 07/31/18 09/25/18 Esomeprazole Magnesium [NexIUM] 40 mg PO DAILY 09/25/18 09/25/18 Polyethylene Glycol 3350 [Miralax] 17 gm PO DAILY PRN 09/25/18 09/25/18 Super B Stress Complex 1 tab PO BID 09/25/18 09/25/18 Turmeric Root Extract [Turmeric] 500 mg PO HS PRN 09/25/18 09/25/18 Previous Rx's Medication Instructions Recorded Midodrine [ProAmatine] 5 mg PO DAILY #0 08/04/18 amLODIPine [Norvasc] 5 mg PO DAILY #30 tab 08/04/18 Allergies Allergy/AdvReac Type Severity Reaction Status Date / Time latex Allergy Rash/Hives Verified 09/25/18 19:08 nickel [Nickel] Allergy Rash/Hives Verified 09/25/18 19:08 Penicillins Allergy Rash/Hives Verified 09/25/18 19:08 chrome Allergy Rash/Hives Uncoded 07/12/18 21:46 Review of Systems ROS Statement: Those systems with pertinent positive or pertinent negative responses have been documented in the HPI. ROS Other: All systems not noted in ROS Statement are negative. Past Medical History Past Medical History: Asthma, Cancer, CVA/TIA, Dementia, GERD/Reflux, Hypertension, Osteoarthritis (OA), Prostate Disorder Additional Past Medical History / Comment(s): See Dr Flores's H&P, BPH, asthma as a young man, seasonal sinus problems, doudenal ulcer years ago, esophageal stricture and has had dilations, skin cancer removal, cervical arthritis, beginnings of dementia, occas. dizziness History of Any Multi-Drug Resistant Organisms: None Reported Past Surgical History: Orthopedic Surgery Additional Past Surgical History / Comment(s): EGD with dilation, colonoscopy, hemorrhoidectomies, bilateral cataract removals with lens implants, skin cancer removal, R shoulder tendon repair after injury. Past Anesthesia/Blood Transfusion Reactions: No Reported Reaction Past Psychological History: No Psychological Hx Reported Smoking Status: Former smoker Past Alcohol Use History: None Reported Past Drug Use History: None Reported - Past Family History Father Family Medical History: Myocardial Infarction (NM) Additional Family Medical History / Comment(s): Father of a NM at the age of 76yrs. Mother Family Medical History: No Reported History Additional Family Medical History / Comment(s): Mother lived to be 94 yrs old. General Exam Limitations: no limitations Course Vital Signs 09/25/18 18:56 Temperature 98.3 F Pulse Rate 74 Respiratory 18 Rate Blood Pressure 192/80 O2 Sat by Pulse 99 Oximetry Medical Decision Making - Lab Data Result diagrams: 09/25/18 19:10 09/25/18 19:10 Lab Results 09/25/18 09/25/18 09/25/18 Range/Units 19:10 19:10 19:10 WBC 11.7 H (3.8-10.6) k/uL RBC 4.18 L (4.30-5.90) m/uL Hgb 13.7 (13.0-17.5) gm/dL Hct 40.5 (39.0-53.0) % MCV 96.8 (80.0-100.0) fL MCH 32.7 (25.0-35.0) pg MCHC 33.8 (31.0-37.0) g/dL RDW 13.6 (11.5-15.5) % Plt Count 375 (150-450) k/uL Neutrophils % 70 % Lymphocytes % 18 % Monocytes % 8 % Eosinophils % 1 % Basophils % 1 % Neutrophils # 8.2 H (1.3-7.7) k/uL Lymphocytes # 2.1 (1.0-4.8) k/uL Monocytes # 0.9 (0-1.0) k/uL Eosinophils # 0.2 (0-0.7) k/uL Basophils # 0.1 (0-0.2) k/uL PT (9.0-12.0) sec INR (<1.2) APTT (22.0-30.0) sec Sodium 132 L (137-145) mmol/L Potassium 4.7 (3.5-5.1) mmol/L Chloride 97 L (98-107) mmol/L Carbon Dioxide 17 L (22-30) mmol/L Anion Gap 18 mmol/L BUN 26 H (9-20) mg/dL Creatinine 2.00 H (0.66-1.25) mg/dL Est GFR (CKD-EPI)AfAm 33 (>60 ml/min/1.73 sqM) Est GFR (CKD-EPI)NonAf 29 (>60 ml/min/1.73 sqM) Glucose 110 H (74-99) mg/dL Calcium 10.3 H (8.4-10.2) mg/dL Magnesium 1.7 (1.6-2.3) mg/dL Total Bilirubin 1.0 (0.2-1.3) mg/dL AST 18 (17-59) U/L ALT 22 (21-72) U/L Alkaline Phosphatase 120 (38-126) U/L Creatine Kinase 53 L (55-170) U/L CK-MB (CK-2) 0.5 (0.0-2.4) ng/mL Troponin I <0.012 (0.000-0.034) ng/mL NT-Pro-B Natriuret Pep pg/mL Total Protein 8.3 H (6.3-8.2) g/dL Albumin 4.9 (3.5-5.0) g/dL 09/25/18 09/25/18 Range/Units 19:10 19:10 WBC (3.8-10.6) k/uL RBC (4.30-5.90) m/uL Hgb (13.0-17.5) gm/dL Hct (39.0-53.0) % MCV (80.0-100.0) fL MCH (25.0-35.0) pg MCHC (31.0-37.0) g/dL RDW (11.5-15.5) % Plt Count (150-450) k/uL Neutrophils % % Lymphocytes % % Monocytes % % Eosinophils % % Basophils % % Neutrophils # (1.3-7.7) k/uL Lymphocytes # (1.0-4.8) k/uL Monocytes # (0-1.0) k/uL Eosinophils # (0-0.7) k/uL Basophils # (0-0.2) k/uL PT 10.3 (9.0-12.0) sec INR 1.0 (<1.2) APTT 24.7 (22.0-30.0) sec Sodium (137-145) mmol/L Potassium (3.5-5.1) mmol/L Chloride (98-107) mmol/L Carbon Dioxide (22-30) mmol/L Anion Gap mmol/L BUN (9-20) mg/dL Creatinine (0.66-1.25) mg/dL Est GFR (CKD-EPI)AfAm (>60 ml/min/1.73 sqM) Est GFR (CKD-EPI)NonAf (>60 ml/min/1.73 sqM) Glucose (74-99) mg/dL Calcium (8.4-10.2) mg/dL Magnesium (1.6-2.3) mg/dL Total Bilirubin (0.2-1.3) mg/dL AST (17-59) U/L ALT (21-72) U/L Alkaline Phosphatase (38-126) U/L Creatine Kinase (55-170) U/L CK-MB (CK-2) (0.0-2.4) ng/mL Troponin I (0.000-0.034) ng/mL NT-Pro-B Natriuret Pep 1140 pg/mL Total Protein (6.3-8.2) g/dL Albumin (3.5-5.0) g/dL Disposition Clinical Impression: Dehydration, TEVIN (acute kidney injury) Disposition: ADMITTED IP TO THIS HOSP Condition: Fair Referrals: Cristo Montoya MD [Primary Care Provider] - 1-2 days Time of Disposition: 20:39
[2018-09-25 19:37] LABS: Partial Thromboplastin Time 24.7 sec (22.0-30.0); Prothrombin Time 10.3 sec (9.0-12.0)
[2018-09-25 19:47] LABS: Creatine Kinase MB 0.5 ng/mL (0.0-2.4); Troponin I <0.012 ng/mL (0.000-0.034)
[2018-09-25] MEDS ORDERED: SODIUM CHLORIDE 0.9% 500 ML IV STA (19:59)
--- NOTE | 2018-09-25 20:00 | XR ---
EXAMINATION TYPE: XR chest 2V DATE OF EXAM: 09/25/2018 COMPARISON: 07/31/2018 HISTORY: Dizziness TECHNIQUE: Frontal and lateral views of the chest are obtained. FINDINGS: There is no heart failure nor confluent pneumonic infiltrate. Costophrenic angles are edgar r. There is a left axillary pacemaker. There are chest leads. Bony thorax is intact. IMPRESSION: No active cardiopulmonary disease. No change.
[2018-09-25] MEDS ORDERED: HYDROcodone/APAP 5-325MG 1 EACH TAB PO STA (20:03)
[2018-09-25] MEDS ORDERED: ACETAMINOPHEN TAB 325 MG TAB PO PRN (20:36)
[2018-09-25] MEDS ORDERED: NALOXONE 0.4 MG/ML 1 ML VIAL IV PRN (20:36)
[2018-09-25] MEDS ORDERED: ONDANSETRON 4 MG/2 ML VIAL IVP PRN (20:36)
[2018-09-25] MEDS ORDERED: CALCIUM CARBONATE 500 MG CHEWABLE PO PRN (20:39)
[2018-09-25] MEDS: SODIUM CHLORIDE 0.9% 1,000 ML IV SCH (23:39)
[2018-09-26] MEDS: HYDROcodone/APAP 5-325MG 1 EACH TAB PO PRN ×3 (03:50→15:41)
[2018-09-26] MEDS: SODIUM CHLORIDE 0.9% 1,000 ML IV SCH ×2 (07:13→20:59)
[2018-09-26] MEDS: PANTOPRAZOLE 40 MG TABLET PO SCH (07:13)
[2018-09-26] MEDS ORDERED: MIDODRINE 5 MG TAB PO SCH (09:00)
[2018-09-26] MEDS ORDERED: amLODIPine 5 MG TAB PO SCH (09:00)
--- NOTE | 2018-09-26 10:52 | P.NPCON ---
History of Present Illness - Reason for Consult acute renal failure, chronic renal failure - History of Present Illness Reason for consultation: Acute kidney injury on chronic kidney disease History of present illness: Patient is a 87-year-old male seen in consultation for acute kidney injury on chronic kidney disease. Patient has chronic kidney disease stage III with baseline creatinine in the range of 1.1-1.3 secondary to nephrosclerosis. Creatinine on admission was 2 and labs from today are pending. Patient presented to the hospital mostly with dyspnea. Chest x-ray did not reveal any evidence of fluid overload. No history of diabetes. Dyspnea has improved. Patient's blood pressure this morning was 89/40 and prior to that is in the systolic 170s to 180s. At home patient takes midodrine as well as Norvasc. He admits to good urine output. No hematuria or dysuria. Denies chest pain. Denies family history of renal disease. Denies use of nonsteroidals. Patient states he takes [place] for pain. Does admit to dizziness at times. He does have history of BPH. UA from July 2018 was benign. Vital signs are stable. General: The patient appeared well nourished and normally developed. HEENT: Head exam is unremarkable. Neck is without jugular venous distension. LUNGS: Breath sounds decreased. HEART: Rate and Rhythm are regular. First and second heart sounds normal. No murmurs, rubs or gallops. ABDOMEN: Abdominal exam reveals normal bowel sounds. Non-tender and non-distende d. No evidence of peritonitis. EXTREMITITES: No clubbing, cyanosis, or edema. Past Medical History Past Medical History: Asthma, Cancer, CVA/TIA, Dementia, GERD/Reflux, Hypertension, Osteoarthritis (OA), Prostate Disorder Additional Past Medical History / Comment(s): See Dr Flores's H&P, BPH, asthma as a young man, seasonal sinus problems, doudenal ulcer years ago, esophageal stricture and has had dilations, skin cancer removal, cervical arthritis, beginnings of dementia, occas. dizziness History of Any Multi-Drug Resistant Organisms: None Reported Past Surgical History: Orthopedic Surgery Additional Past Surgical History / Comment(s): EGD with dilation, colonoscopy, hemorrhoidectomies, bilateral cataract removals with lens implants, skin cancer removal, R shoulder tendon repair after injury. Past Anesthesia/Blood Transfusion Reactions: No Reported Reaction Past Psychological History: No Psychological Hx Reported Additional Psychological History / Comment(s): Pt resides with his spouse. He drives if he is feeling good. He uses no assistive device. He retired from the [employer]. His is very ill with lung problems and they are looking to place her in hospice. Spouse has home care, pt also assists with her care. 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 Smoking Status: Former smoker Past Alcohol Use History: None Reported Additional Past Alcohol Use History / Comment(s): Pt started smoking in 1948 and quit in 1980. He drinks one glass of wine daily . Past Drug Use History: None Reported - Past Family History Father Family Medical History: Myocardial Infarction (ME) Additional Family Medical History / Comment(s): Father of a ME at the age of 76yrs. Mother Family Medical History: No Reported History Additional Family Medical History / Comment(s): Mother lived to be 94 yrs old. Medications and Allergies Home Medications Medication Instructions Recorded Confirmed Type Aspirin EC [Ecotrin Low Dose] 81 mg PO DAILY 04/18/14 07/31/18 History Ascorbic Acid [Vitamin C] 500 mg PO DAILY 07/12/18 09/25/18 History Multivitamins, Thera [Multivitamin 1 tab PO DAILY 07/12/18 09/25/18 History (formulary)] Zinc 50 mg PO DAILY 07/12/18 09/25/18 History Calcium Carbonate [Tums] 500 mg PO TID PRN 07/31/18 09/25/18 History Midodrine [ProAmatine] 5 mg PO DAILY #0 08/04/18 07/31/18 Rx amLODIPine [Norvasc] 5 mg PO DAILY #30 tab 08/04/18 Rx Esomeprazole Magnesium [NexIUM] 40 mg PO DAILY 09/25/18 09/25/18 History Polyethylene Glycol 3350 [Miralax] 17 gm PO DAILY PRN 09/25/18 09/25/18 History Super B Stress Complex 1 tab PO BID 09/25/18 09/25/18 History Turmeric Root Extract [Turmeric] 500 mg PO HS PRN 09/25/18 09/25/18 History Allergies Allergy/AdvReac Type Severity Reaction Status Date / Time latex Allergy Rash/Hives Verified 09/25/18 19:08 nickel [Nickel] Allergy Rash/Hives Verified 09/25/18 19:08 Penicillins Allergy Rash/Hives Verified 09/25/18 19:08 chrome Allergy Rash/Hives Uncoded 07/12/18 21:46 Physical Exam Vitals: Vital Signs Temp Pulse Pulse Resp BP BP Pulse Ox 09/26/18 07:00 97.8 F 58 L 18 89/40 98 09/26/18 04:00 174/81 09/26/18 01:30 97.9 F 55 L 16 183/76 97 09/26/18 00:11 170/82 09/25/18 23:00 97.9 F 59 L 16 100 09/25/18 22:30 58 L 143/80 97 09/25/18 22:20 57 L 143/80 98 09/25/18 22:00 56 L 164/84 98 09/25/18 21:30 57 L 143/77 98 09/25/18 21:00 59 L 18 133/69 99 09/25/18 20:30 61 20 169/86 98 09/25/18 20:10 66 20 169/86 99 09/25/18 18:56 98.3 F 74 18 192/80 99 Intake and Output 09/25/18 09/26/18 09/26/18 22:59 06:59 14:59 Intake Total 100 1000 Output Total 500 Balance 100 500 Intake: Amount of Fluid Infused ( 100 ml) Intake, IV Titration 900 Amount Sodium Chloride 0.9% 1, 400 000 ml @ 80 mls/hr IV . [id number] [facility] Rx#:[id number] Sodium Chloride 0.9% 500 500 ml @ 999 mls/hr IV .Q31M [facility] Rx#:[id number] Oral 100 Output: Urine 500 Other: # Voids 2 Weight 77.111 kg Results - Lab Results Most recent lab results Calcium 10.3 mg/dL (8.4-10.2) H 09/25/18 19:10 Magnesium 1.7 mg/dL (1.6-2.3) 09/25/18 19:10 09/25/18 19:10 09/25/18 19:10 Assessment and Plan Plan: Assessment: 1. Acute kidney injury mostly prerenal secondary to hypotension. Also component of urinary retention. Creatinine 2 on admission. Labs from today are pending. 2. Chronic kidney disease stage III with baseline creatinine in the range of 1.1-1.3. Etiology is nephrosclerosis. 3. Metabolic acidosis secondary to acute kidney injury. 4. Hyponatremia secondary to acute kidney injury. 5. Urinary retention. 6. Orthostatic hypotension. Patient standing blood pressure this morning was in the systolic 90s. Supine it was in the systolic 170s. 7. History of BPH. Plan: Maintain normal saline at 80 mL an hour. Increase midodrine to 5 mg twice daily. Hold any antihypertensives. Add oral sodium bicarbonate. Check renal ultrasound. Straight cath now. Monitor serial postvoid residuals. Maintain Edgar catheter. Repeat electrolytes in the morning. Thank you for the consultation. I will continue to follow the patient with you during his hospital stay.
[2018-09-26] MEDS: SODIUM BICARBONATE TAB 650 MG TAB PO SCH ×2 (12:11→20:58)
--- NOTE | 2018-09-26 12:29 | US ---
EXAMINATION TYPE: US kidneys/renal and bladder DATE OF EXAM: 09/26/2018 COMPARISON: NONE CLINICAL HISTORY: tevin. TEVIN EXAM MEASUREMENTS: Right Kidney: 10.3 x 5.6 x 4.7 cm Left Kidney: 10.5 x 5.3 x 5.5 cm Post Void Residual Volume: Not performed Right Kidney: Anechoic area seen lateral: 4.0 x 3.2 x 3.9 cm. This can be compatible with simple crystal l cyst. Left Kidney: No hydronephrosis or masses seen. Unable to visualize spleen for echogenicity comparison . Bladder: Appears anechoic. *Incidental: prostate appears prominent. Bilateral Jets seen: Yes IMPRESSION: 1. Right renal cyst. 2. Prominent prostate.
[2018-09-26] MEDS: MIDODRINE 5 MG TAB PO SCH (16:57)
--- NOTE | 2018-09-26 19:25 | HP ---
HISTORY AND PHYSICAL ADDENDUM: DATE OF ADMISSION: September 26, 2018 EKG tracing personally reviewed by me shows right bundle branch block. Chest x-ray film personally reviewed by me shows cardiomegaly, has a pacemaker. No obvious infiltrates. Abdominal ultrasound shows prominent prostate. MMODL / IJN: [id number] /
--- NOTE | 2018-09-26 19:48 | HP ---
HISTORY AND PHYSICAL DATE OF ADMISSION: 09/25/2018 DATE OF SERVICE: 09/26/2018 PRESENTING COMPLAINT: Weak and dizzy. Fall. HISTORY OF PRESENTING COMPLAINT: This is a very pleasant 87-year-old patient of Dr. 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 The patient normally has a little bit of dizziness, but he was sitting up on the edge of the bed, then went to the door and simply went down. He found it difficult to get back up. The patient has been feeling dizzy and weak. The patient had a couple of these episodes. He sometimes does not eat, as he gets Meals on Wheels. Patient in the ER was found to be in acute renal failure and was started on IV fluids. He feels a little bit better. REVIEW OF SYSTEMS: CONSTITUTIONAL: Tired. HEENT: Decreased hearing. RESPIRATORY: None. CARDIOVASCULAR: None. GASTROINTESTINAL: None. GENITOURINARY: None. MUSCULOSKELETAL: Some pain in the joints. DERMATOLOGICAL: None. HEMATOLOGIC: None. LYMPHATIC: None. PSYCHIATRY: Forgetful. NEUROLOGICAL: Uses a walker. PAST MEDICAL HISTORY: 1. Autonomic dysfunction. 2. GERD. 3. Hypertension. 4. Osteoarthritis. 5. BPH. 6. Esophageal stricture. 7. Mild cognitive impairment from Alzheimer's dementia. PAST SURGICAL HISTORY: 1. EGD with dilatation. 2. Colonoscopy. 3. Hemorrhoidectomy. 4. Bilateral cataract removal and lens implants. 5. Skin cancer removed. 6. Right shoulder tendon repair. SOCIAL HISTORY: Lives alone. Smoked for 33 years; stopped in 1980. The patient is a . He gets Meals on Wheels. FAMILY HISTORY: Father of a heart attack at age 76. HOME MEDICATIONS: 1. Midodrine 2.5 mg t.i.d. and 5 mg p.o. t.i.d. 2. Toprol-XL 25 mg a day. 3. Imdur ER 30 mg a day. 4. Aspirin 81 mg a day. 5. Zinc 50 mg a day. 6. Turmeric 500 mg at bedtime p.r.n. 7. MiraLAX 17 grams p.o. daily p.r.n. 8. Multivitamin 1 tablet p.o. daily. 9. Nexium 40 mg p.o. daily. 10.Tums 500 mg p.o. t.i.d. p.r.n. 11.Vitamin C 500 mg p.o. daily. ALLERGIES: 1. LATEX. 2. NICKEL. 3. PENICILLIN. 4. CHROME. PHYSICAL EXAMINATION: VITAL SIGNS ON PRESENTATION: Temperature 98.3, pulse 74, respiration 18, blood pressure 166/86, pulse ox 99% on room air. GENERAL APPEARANCE: Average build. Lying in bed, tired-appearing. EYES: Pupils equal. Conjunctivae pale. HEENT: External appearance of nose and ears normal. Oral cavity normal. NECK: JVD not raised. Mass not palpable. RESPIRATORY: Effort normal. LUNGS: Slightly decreased breath sounds. CARDIOVASCULAR: First and second sounds normal. No edema. ABDOMEN: Soft, non-tender. Liver and spleen not palpable. LYMPHATIC: No lymph node palpable in neck or axillae. PSYCHIATRY: Alert and oriented x3. Mood and affect normal. NEUROLOGICAL: Pupils equal. Cranial nerves grossly intact. Power and sensation grossly intact. MUSCULOSKELETAL: Evidence of osteoarthritis in multiple joints. INVESTIGATIONS: White count 11.7, hemoglobin 13.7 potassium 4.7. BUN 26, creatinine 2.0. Patient's BUN and creatinine were 18 and 1.25 on 08/04/2018. ASSESSMENT: 1. Acute renal failure, probably prerenal, from decreased oral intake resulting in syncope. 2. Orthostatic hypotension with known autonomic dysfunction. 3. Gastroesophageal reflux disease. 4. Essential hypertension. 5. Primary osteoarthritis. 6. Esophageal stricture with history of dilatation. 7. 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 8. Chronic gait dysfunction. Uses a walker. 9. Metabolic acidosis from renal failure. 10.Hypercalcemia from dehydration. PLAN: Patient was started on normal saline. Other home medications are resumed. Fall precautions are to be monitored. Will give Lovenox for DVT prophylaxis. Patient encouraged to increase his oral intake. Electrolytes will be closely monitored. MMODL / IJN: [id number] /
[2018-09-27] MEDS: SODIUM BICARBONATE TAB 650 MG TAB PO SCH (07:11)
[2018-09-27] MEDS: PANTOPRAZOLE 40 MG TABLET PO SCH (07:12)
[2018-09-27] MEDS: MIDODRINE 5 MG TAB PO SCH (07:12)
[2018-09-27] MEDS ORDERED: ASPIRIN 81 MG PO SCH (09:00)
[2018-09-27 09:14] LABS: Calcium 9.7 mg/dL (8.4-10.2); Magnesium 1.6 mg/dL (1.6-2.3); Potassium 4.8 mmol/L (3.5-5.1)
[2018-09-27] MEDS: SODIUM CHLORIDE 0.9% 1,000 ML IV SCH (11:36)
--- NOTE | 2018-09-27 12:00 | P.PN ---
Subjective Patient is seen in follow-up for acute kidney injury on chronic kidney disease. Patient has chronic kidney disease stage III with baseline creatinine in the range of 1.1-1.3 secondary to nephrosclerosis. Renal function is better. Creatinine was 21 admission and is down to 1.33 today. He is receiving IV hydration. Urine output is good. He has been admitting. Denies dizziness. He is maintained on midodrine. Vital signs are stable. General: The patient appeared well nourished and normally developed. HEENT: Head exam is unremarkable. Neck is without jugular venous distension. LUNGS: Lungs are clear to auscultation and percussion. Breath sounds decreased. HEART: Rate and Rhythm are regular. First and second heart sounds normal. No murmurs, rubs or gallops. ABDOMEN: Abdominal exam reveals normal bowel sounds. Non-tender and non-d istended. No evidence of peritonitis. EXTREMITITES: No clubbing, cyanosis, or edema. Objective - Vital Signs Vital signs: Vital Signs Temp 97.6 F 09/27/18 07:27 Pulse 70 09/27/18 07:27 Resp 15 09/27/18 07:27 BP 129/70 09/27/18 07:00 Pulse Ox 99 09/27/18 07:27 Intake & Output 09/26/18 09/27/18 09/27/18 18:59 06:59 18:59 Intake Total 980 280 180 Output Total 500 Balance 480 280 180 Intake: Intake, IV Titration 280 Amount Sodium Chloride 0.9% 1, 280 000 ml @ 80 mls/hr IV . [id number] [facility] Rx#:[id number] Oral 980 180 Output: Urine 500 - Labs CBC & Chem 7: 09/25/18 19:10 09/27/18 08:05 Labs: Abnormal Lab Results - Last 24 Hours (Table) 09/27/18 Range/Units 08:05 Sodium 132 L (137-145) mmol/L BUN 21 H (9-20) mg/dL Creatinine 1.33 H (0.66-1.25) mg/dL Glucose 113 H (74-99) mg/dL Assessment and Plan Plan: Assessment: 1. Acute kidney injury mostly prerenal secondary to hypotension. Also component of urinary retention. Creatinine 2 on admission and is down to 1.3 today. No evidence of hydronephrosis noted on renal ultrasound. 2. Chronic kidney disease stage III with baseline creatinine in the range of 1.1-1.3. Etiology is nephrosclerosis. 3. Metabolic acidosis secondary to acute kidney injury maintained on oral sodium bicarbonate. Better. 4. Hyponatremia secondary to acute kidney injury. Stable. 5. Orthostatic hypotension. Maintained on midodrine. 6. History of BPH. 7. Hypomagnesemia from poor oral intake. Plan: Maintain midodrine. Hold any antihypertensives. Replace magnesium. 2 g IV today. Stable to be discharged from nephrology standpoint. Follow up outpatient in the next 2 weeks.
[2018-09-27] MEDS: MAGNESIUM SULFATE-D5W PMX 1 GM in DEXTROSE/WATER 1 100ML.BAG IVPB SCH ×2 (13:19→14:36)
[2018-09-27 15:31] VITALS: PULSE 58; RESP 14; TEMP 97.5
[2018-09-27 15:45] VITALS: BP 135/71
--- NOTE | 2018-09-28 06:29 | DS ---
DISCHARGE SUMMARY DATE OF ADMISSION: 09/25/2018 DATE OF DISCHARGE: 09/27/2018 FINAL DIAGNOSES: 1. Acute renal failure likely prerenal from decreased oral intake resulting in syncope. 2. Orthostatic hypotension with known chronic autonomic dysfunction. 3. Gastroesophageal reflux disease. 4. Essential hypertension. 5. Primary osteoarthritis. 6. Esophageal stricture with history of dilatation. 7. 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 8. Chronic gait dysfunction, uses a walker. 9. Metabolic acidosis from renal failure. 10.Hypercalcemia from dehydration. HOSPITAL COURSE: This patient presented with falling down. The patient's BUN and creatinine was 26/2.0 did come down to 21 and 1.33 by this morning. Also hypercalcemia corrected. The patient has chronic autonomic dysfunction. Medications were adjusted today. Care was discussed at length with the patient. Questions were answered. Also discussed with the complex case manager. Also spoke to patient's son. Questions were answered. On examination, temperature 97.5, pulse 58, respiration 14, pulse ox 92% on room air, blood pressure 135/71. LUNGS: Fair air entry. INVESTIGATIONS: Potassium 4.8, BUN 21, creatinine . DISCHARGE MEDICATIONS: 1. Aspirin 81 mg a day. 2. Vitamin C 500 mg p.o. daily. 3. Multivitamin 1 tablet p.o. daily. 4. Zinc 50 mg a day. 5. Tums 500 mg t.i.d. p.r.n. 6. Nexium 40 mg a day. 7. MiraLAX 17 grams p.o. daily. 8. Super B stress complex 1 tablet p.o. b.i.d. 9. Imdur ER 30 mg a day. 10.Midodrine 5 mg b.i.d. 11.Sodium bicarb 650 mg p.o. b.i.d. Discontinued Toprol-XL. Follow up with Dr. Cristo Montoya in 3 days. Follow up with Dr. Reeves in 2 weeks. [facility] in one week. Discussion and discharge planning more than 35 minutes. CONSULTATION: Dr. Reeves from Nephrology. MMCRISTÓBALL / SANAZN: [id number] /
== END 2018-09-27 17:55 | disposition home or self-care (01) | DRG 683 ==
LOC: EC 18:49 → 4SSUR 20:36
PROVIDERS: ADMIT Hospitalist; ATTEND Hospitalist
DX: N17.9 Acute kidney failure, unspecified (principal); E87.1 Hypo-osmolality and hyponatremia; E87.2 Acidosis; E86.0 Dehydration; E83.42 Hypomagnesemia; E83.52 Hypercalcemia; G30.1 Alzheimer's disease with late onset; I45.10 Unspecified right bundle-branch block; N18.3 Chronic kidney disease, stage 3 (moderate); N40.1 Benign prostatic hyperplasia with lower urinary tract symptoms; R33.8 Other retention of urine; F02.80 Dementia in other diseases classified elsewhere, unspecified severity, without behavioral disturbance, psychotic disturbance, mood disturbance, and anxiety; G90.9 Disorder of the autonomic nervous system, unspecified; I51.7 Cardiomegaly; K22.2 Esophageal obstruction; R55 Syncope and collapse; Z96.1 Presence of intraocular lens; J45.909 Unspecified asthma, uncomplicated; K21.9 Gastro-esophageal reflux disease without esophagitis; M19.91 Primary osteoarthritis, unspecified site; I12.9 Hypertensive chronic kidney disease with stage 1 through stage 4 chronic kidney disease, or unspecified chronic kidney disease; R26.9 Unspecified abnormalities of gait and mobility; M47.9 Spondylosis, unspecified; W19.XXXA Unspecified fall, initial encounter; Z60.2 Problems related to living alone; Z79.82 Long term (current) use of aspirin; Z79.899 Other long term (current) drug therapy; Z82.49 Family history of ischemic heart disease and other diseases of the circulatory system; Z85.828 Personal history of other malignant neoplasm of skin; Z86.73 Personal history of transient ischemic attack (TIA), and cerebral infarction without residual deficits; Z98.42 Cataract extraction status, left eye; Z98.41 Cataract extraction status, right eye; Z95.0 Presence of cardiac pacemaker; Z87.891 Personal history of nicotine dependence; Z91.040 Latex allergy status; Z88.0 Allergy status to penicillin; Z91.09 Other allergy status, other than to drugs and biological substances
CPT/HCPCS: 36415; 71046; 76770; 80048; 80053; 82550; 82553; 83735; 83880; 84484; 85025; 85610; 85730; 93005; 99285